=== PATIENT | male | born 1985 | race American Indian/Alaskan Native ===

== ENCOUNTER 2016-03-28 16:54 | Emergency (ER) | payer SELFPAY ==
[~2016-03-28] VITALS: Ht 182.9 cm; Wt 95.3 kg
[~2016-03-28 16:54] MED LIST: CLIN75SO6 PO; HYDR-2858 PO; HYDR-707 PO; HYDR118S PO; IBP600T1 PO; IBUP-2055 PO; LEVE500T99 PO; LORA1TAB PO; PHN100C PO; SERT50TA9 PO
[2016-03-28 17:21] VITALS: BP 117/75
== END 2016-03-28 19:00 | disposition left against medical advice (07) ==
LOC: EDUNIT# 16:54 → ER 16:55
DX: R20.2 Paresthesia of skin (principal); G40.909 Epilepsy, unspecified, not intractable, without status epilepticus; Z79.899 Other long term (current) drug therapy; Z53.21 Procedure and treatment not carried out due to patient leaving prior to being seen by health care provider
CPT/HCPCS: 99281

== ENCOUNTER 2016-08-16 17:31 | Emergency (ER) | payer SELFPAY ==
[~2016-08-16] VITALS: Ht 182.9 cm; Wt 95.3 kg
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
[2016-08-16] MEDS ORDERED: ONDANSETRON 4 MG (ZOFRAN) ORAL DISSOLVE TAB PO ONE (18:30)
[2016-08-16 18:37] LABS: BASOPHILS % (AUTO) 1 % (0-10); EOSINOPHILS # (AUTO) 0.1 10^3/uL (0.0-0.3); EOSINOPHILS % (AUTO) 1 % (0-10); LYMPHOCYTES # (AUTO) 1.9 X 10^3 (1.0-4.0); LYMPHOCYTES % (AUTO) 35 % (12-44); MEAN CORPUSCULAR HEMOGLOBIN 31 PG (25-34); MEAN CORPUSCULAR HGB CONC 36 G/DL (32-36); MEAN CORPUSCULAR VOLUME 88 FL (80-99); MEAN PLATELET VOLUME 9.8 FL (7.4-10.4); MONOCYTES # (AUTO) 0.5 X 10^3 (0.0-1.0); MONOCYTES % (AUTO) 10 % (0-12); NEUTROPHILS # (AUTO) 2.9 X 10^3 (1.8-7.8); NEUTROPHILS % (AUTO) 54 % (42-75); PLATELET COUNT 206 10^3/uL (130-400); RED BLOOD COUNT 5.21 10^6/uL (4.35-5.85); RED CELL DISTRIBUTION WIDTH 12.5 % (10.0-14.5); WHITE BLOOD COUNT 5.3 10^3/uL (4.3-11.0)
[2016-08-16 18:57] LABS: ALANINE AMINOTRANSFERASE 24 U/L (0-55); ALBUMIN 4.2 GM/DL (3.2-4.5); ALCOHOL 206 MG/DL (<10); ANION GAP 12 MMOL/L (5-14); ASPARTATE AMINO TRANSFERASE 29 U/L (5-34); BILIRUBIN,TOTAL 0.8 MG/DL (0.1-1.0); BLOOD UREA NITROGEN 6 MG/DL (7-18); BUN/CREATININE RATIO 7 (0-20); CALCIUM 8.9 MG/DL (8.5-10.1); CARBON DIOXIDE 21 MMOL/L (21-32); CHLORIDE 109 MMOL/L (98-107); CREATININE SERUM 0.84 MG/DL (0.60-1.30); GFR ESTIMATED > 60; GLUCOSE 116 MG/DL (70-105); HEMOLYSIS 14 (-100-29); ICTERUS 0.9 (-100-1.9); LIPASE 25 U/L (8-78); LIPEMIA 8 (-100-49); POTASSIUM 3.8 MMOL/L (3.6-5.0); SODIUM 142 MMOL/L (135-145)
--- NOTE | 2016-08-16 19:01 | Diagnostic Imaging Report ---
CHEST PA/LAT (2 VIEW) Indication: Cough and congestion. Comparison: 08/30/2015. Findings: No focal pneumonic consolidation, pleural effusion or pneumothorax. Normal heart size and pulmonary vasculature. Impression: No acute cardiopulmonary process. Dictated by: Dictated on workstation # [id number]
[2016-08-16] MEDS ORDERED: AMOX500C2 PO (19:16)
[2016-08-16 19:22] LABS: BILIRUBIN,URINE NEGATIVE (NEGATIVE); KETONES,URINE NEGATIVE (NEGATIVE); LEUKOCYTE ESTERASE ,URINE NEGATIVE (NEGATIVE); NITRITE,URINE NEGATIVE (NEGATIVE); PH,URINE 7 (5-9); PROTEIN,URINE NEGATIVE (NEGATIVE); UROBILINOGEN,URINE NORMAL (NORMAL)
[2016-08-16 19:31] LABS: SQUAMOUS EPITHELIAL CELL,UR RARE /HPF
[2016-08-16 19:45] VITALS: BP 114/84
--- OUTSIDE RECORDS SUMMARY | 2016-08-17 09:07 | XMS REPORT ---
Author Author DILAN DAVALOS [facility] [employer] Address Unknown Phone Unavailable Care Team Providers Care Optical Design Engineer Name Role Phone DILAN DAVALOS CP Unavailable Allergies No Known Allergies Problems Problem Type Condition Code Onset Dates Condition Status Problem Major depressive disorder, recurrent episode, unspecified severity F33.9 Active Problem Anxiety F41.9 Active Problem Alcohol dependence with withdrawal, unspecified F10.239 Active Problem Carpal tunnel syndrome, unspecified laterality G56.00 Active Problem Elevated blood pressure I10 Active Medications No Known Medications Results No Known Results Summary Purpose eClinicalWorks Submission
--- OUTSIDE RECORDS SUMMARY | 2016-08-17 09:07 | XMS REPORT ---
Author Author JERAD WEBSTER Organization [employer] Address Unknown Phone Unavailable Care Team Providers Care Wire Tinner Name Role Phone JERAD WEBSTER CP Unavailable Allergies No Known Allergies Problems [...]
--- OUTSIDE RECORDS SUMMARY | 2016-08-17 09:07 | XMS REPORT ---
Author Author STEVE OWENS Organization [employer] Address Unknown Phone Unavailable Care Team Providers Care Leveling Machine Operator Name Role Phone STEVE OWENS CP Unavailable Allergies, Adverse Reactions, Alerts Substance Reaction Event Type N.K.D.A. Info Not Available Non Drug Allergy Problems Problem Type Condition Code Onset Dates Condition Status Problem Major depressive disorder, recurrent episode, unspecified severity F33.9 Active Problem Anxiety F41.9 Active Problem Alcohol dependence with withdrawal, unspecified F10.239 Active Assessment Alcohol abuse F10.10 Active Assessment Alcohol abuse counseling and surveillance of alcoholic Z71.41 Active Problem Carpal tunnel syndrome, unspecified laterality G56.00 Active Problem Elevated blood pressure I10 Active Medications Medication Code System Code Instructions Start Date End Date Status Dosage Valium [facility] [address]-72 2 MG Orally ONCE TONIGHT, ONE TAB BID ON 07/07, 1 TAB ONCE ON 07/08 AND 07/09July 07, 2015 1 tablet Procedures Procedure Coding System Code Date Office Visit, Est Pt., Level 4 CPT-4 57102 July 07, 2015 Vital Signs Date/Time: July 07, 2015 Cardiac Monitoring Heart Rate 84 bpm Weight 182.2 lbs Height 70 in Blood Pressure Diastolic 86 mmHg Blood Pressure Systolic 118 mmHg Results No Known Results Summary Purpose eClinicalWorks Submission
--- OUTSIDE RECORDS SUMMARY | 2016-08-17 09:08 | XMS REPORT ---
Author Author AUDRA GONZALEZ Organization [employer] Address Unknown Phone Unavailable Care Team Providers Care Baggage Screener Name Role Phone AUDRA GONZALEZ Unavailable Allergies No Known Allergies Problems Problem [...]
--- OUTSIDE RECORDS SUMMARY | 2016-08-17 09:08 | XMS REPORT ---
Author Author SHIMON HUGHES Organization [employer] Address Unknown Phone Unavailable Care Team Providers Care Reamer Hand Name Role Phone SHIMON HUGHES CP Unavailable Allergies No Known Allergies Problems [...]
--- OUTSIDE RECORDS SUMMARY | 2016-08-17 09:08 | XMS REPORT ---
Author Author JACKIE DOVE [facility] [employer] Address Unknown Phone Unavailable Care Team Providers Care Visitor Service Assistant Name Role Phone JACKIE DOVE CP Unavailable Allergies No Known Allergies Problems [...]
--- OUTSIDE RECORDS SUMMARY | 2016-08-17 09:08 | XMS REPORT ---
Author Author JERAD WEBSTER [facility] e[employer] Address Unknown Phone Unavailable Care Team Providers Care Engraver Hand Soft Metals Name Role Phone JERAD WEBSTER CP Unavailable Allergies, Adverse Reactions, Alerts Substance Reaction Event Type N.K.D.A. Info Not Available Non Drug Allergy Problems Problem Type Condition Code Onset Dates Condition Status Problem Alcohol dependence with withdrawal, unspecified F10.239 Active Problem Anxiety F41.9 Active Problem Seizure disorder G40.909 Active Problem Carpal tunnel syndrome, unspecified laterality G56.00 Active Assessment Seizure disorder G40.909 Active Medications Medication Code System Code Instructions Start Date End Date Status Dosage Keppra [facility] [address]-61 500 MG Orally 2 times a day 2 tablets Procedures Procedure Coding System Code Date Office Visit, Est Pt., Level 3 CPT-4 22130 September 15, 2015 Vital Signs Date/Time: September 15, 2015 Cardiac Monitoring Heart Rate 76 bpm Weight 188.1 lbs Height 70 in BMI 26.99 Index Blood Pressure Diastolic 78 mmHg Blood Pressure Systolic 110 mmHg Results No Known Results Summary Purpose eClinicalWorks Submission
--- OUTSIDE RECORDS SUMMARY | 2016-08-17 09:08 | XMS REPORT ---
Author Author STEVE OWENS Organization [employer] Address Unknown Phone Unavailable Care Team Providers Care Tea Tree Farm Worker Name Role Phone STEVE OWENS CP Unavailable Allergies, Adverse Reactions, Alerts Substance Reaction Event Type N.K.D.A. Info Not Available Non Drug Allergy Problems Problem Type Condition Code Onset Dates Condition Status Problem Major depressive disorder, recurrent episode, unspecified severity F33.9 Active Problem Anxiety F41.9 Active Problem Alcohol dependence with withdrawal, unspecified F10.239 Active Assessment Counseling on substance use and abuse Z71.89 Active Assessment Anxiety F41.9 Active Problem Carpal tunnel syndrome, unspecified laterality G56.00 Active Problem Elevated blood pressure I10 Active Medications Medication Code System Code Instructions Start Date End Date Status Dosage Remeron [facility] [address]-54 15 MG Orally Once a day July 10, 2015 1 tablet before bedtime in the evening Valium [facility] [address]-05 2 MG Orally ONCE TONIGHT, ONE TAB BID ON 07/07, 1 TAB ONCE ON 07/08 AND 07/09July 07, 2015 1 tablet Procedures Procedure Coding System Code Date Office Visit, Est Pt., Level 3 CPT-4 03984 July 10, 2015 Vital Signs Date/Time: July 10, 2015 Cardiac Monitoring Heart Rate 76 bpm Weight 179.6 lbs Height 70 in Blood Pressure Diastolic 92 mmHg Blood Pressure Systolic 140 mmHg Results No Known Results Summary Purpose eClinicalWorks Submission
--- OUTSIDE RECORDS SUMMARY | 2016-08-17 09:08 | XMS REPORT | Referral Summary ---
Author Author [facility] Organization [facility] Address Unknown Phone Unavailable Care Team Providers Care Plate Grainer Apprentice Name Role Phone No PCP, Pt States PCP Encounter VC Date(s): 08/23/15 - 08/23/[address] [facility] [address] [place] [address] Discharge Diagnosis: Alcohol withdrawal seizure Discharge Disposition: 01-Home or Self Care Attending Physician: Yaya Alexandra MD Admitting Physician: Yaya Alexandra MD Vital Signs Most recent to 1 oldest [Reference Range]: Temperature Oral 37.1 degC [35.8-37.3 degC] (08/23/15 8:49 AM) Peripheral Pulse 111 bpm Rate [60-100 bpm] *HI* (08/23/15 8:49 AM) Heart Rate Monitored 98 bpm [60-100 bpm] (08/23/15 10:33 AM) Respiratory Rate 16 br/min [14-20 br/min] (08/23/15 8:49 AM) Systolic Blood 116 mmHg Pressure [90-140 (08/23/15 10:33 AM) mmHg] Diastolic Blood 78 mmHg Pressure [60-90 (08/23/15 10:33 AM) mmHg] Mean Arterial 96 mmHg Pressure, Cuff (08/23/15 9:25 AM) SpO2 98 % (08/23/15 10:33 AM) Problem List No Known Problems Allergies, Adverse Reactions, Alerts No Known Medication Allergies Medications No Known Medications Results Hematology Most recent to 1 oldest [Reference Range]: WBC [4.8-10.8 7.8 10*3/uL 10*3/uL] (08/23/15 9:13 AM) RBC [4.60-6.20] 5.11 (08/23/15 9:13 AM) Hgb [14.0-18.0 16.3 gm/dL gm/dL] (08/23/15 9:13 AM) Hct [42.0-52.0 %] 48.0 % (08/23/15:13 AM) MCV [82.0-99.0 fL] 93.9 fL (08/23/15 9:13 AM) MCH [27.0-32.0 pg] 31.9 pg (08/23/15:13 AM) MCHC [32.0-36.0 34.0 gm/dL gm/dL] (08/23/15 9:13 AM) RDW [11.5-14.5 %] 12.7 % (08/23/15 9:13 AM) Platelet [150-400 276 10*3/uL 10*3/uL] (08/23/15 9:13 AM) MPV [9.4-12.3 fL] 10.5 fL (08/23/15 9:13 AM) Immature 1.0 % Granulocytes (08/23/15:13 AM) [0.0-1.0 %] Neutrophils [51-75 64 % %] (08/23/15 9:13 AM) Lymphocytes [20-46 21 % %] (08/23/15 9:13 AM) Monocytes [4-11 %] 9 % (08/23/15 9:13 AM) Eosinophils [0-4 %] 3 % (08/23/15 9:13 AM) Basophils [0-2 %] 1 % (08/23/15 9:13 AM) Neutro Absolute 5.05 10*3 [1.90-7.00 10*3] (08/23/15 9:13 AM) Lymph Absolute 1.68 10*3 [0.80-3.30 10*3] (08/23/15 9:13 AM) Armstrong Absolute 0.69 10*3 [0.30-1.00 10*3] (08/23/15 9:13 AM) Eos Absolute 0.25 10*3 [0.00-0.50 10*3] (08/23/15 9:13 AM) Baso Absolute 0.10 10*3 [0.00-0.20 10*3] (08/23/15 9:13 AM) Nucleated RBC 0.0 /100 WBC Automated [0 /100 (08/23/15 9:13 AM) WBC] Chemistry Most recent to 1 oldest [Reference Range]: Sodium Lvl [136-144 137 mEq/L mEq/L] (08/23/15 9:13 AM) Potassium Lvl 4.6 mEq/L [3.6-5.1 mEq/L] (08/23/15 9:13 AM) Chloride [99-109 107 mEq/L mEq/L] (08/23/15 9:13 AM) CO2 [22-32 mEq/L] 20 mEq/L *LOW* (08/23/15 9:13 AM) AGAP [3-20] 10 (08/23/15 9:13 AM) BUN [4-20 mg/dL] 10 mg/dL (08/23/15 9:13 AM) Glucose Lvl [70-100 91 mg/dL mg/dL] (08/23/15 9:13 AM) Creatinine Lvl 0.96 mg/dL [0.64-1.27 mg/dL] (08/23/15 9:13 AM) eGFR [>60] >60 1 (08/23/15 9:13 AM) Calcium Lvl 9.2 mg/dL [8.6-10.0 mg/dL] (08/23/15 9:13 AM) 1Result Comment: Multiply eGFR results by 1.21 for race. Immunizations No data available for this section Procedures Procedure Date Related Diagnosis Body Site Facial bone operation Social History Social History Type Response Smoking Status Current every day smoker; Type: Cigarettes; Tobacco use per day: 1 Pack Assessment and Plan No data available for this section
--- OUTSIDE RECORDS SUMMARY | 2016-08-17 09:09 | XMS REPORT ---
Author Author JERAD WEBSTER [facility] eClinical[employer] Address Unknown Phone Unavailable Care Team Providers Care Pool Nurse Name Role Phone JERAD WEBSTER CP Unavailable Allergies, Adverse Reactions, Alerts Substance Reaction Event Type N.K.D.A. Info Not Available Non Drug Allergy Problems Problem Type Condition Code Onset Dates Condition Status Problem Major depressive disorder, recurrent episode, unspecified severity F33.9 Active Problem Anxiety F41.9 Active Problem Alcohol dependence with withdrawal, unspecified F10.239 Active Assessment Alcohol dependence with withdrawal, unspecified F10.239 Active Problem Carpal tunnel syndrome, unspecified laterality G56.00 Active Problem Elevated blood pressure I10 Active Medications Medication Code System Code Instructions Start Date End Date Status Dosage Ativan [facility] [address]-21 0.5 MG Orally 2 times a day Jan 31, 2015 1 tablet as needed Procedures Procedure Coding System Code Date Office Visit, Est Pt., Level 2 CPT-4 93083 Feb 17, 2015 Vital Signs Date/Time: Feb 17, 2015 Temperature 97.7 F Weight 187.5 lbs Height 70 in BMI 26.90 Index Blood Pressure Diastolic 84 mmHg Blood Pressure Systolic 124 mmHg Cardiac Monitoring Heart Rate 84 bpm Results No Known Results Summary Purpose eClinicalWorks Submission
--- OUTSIDE RECORDS SUMMARY | 2016-08-17 09:09 | XMS REPORT ---
Author Author CANDIS HARRINGTON [facility] Address [address] Care Team Providers Care Tariff Compiling Clerk Name Role Phone CANDIS HARRINGTON Unavailable PROBLEMS Type Condition ICD9-CM Code [id number] Code Onset Dates Condition Status SNOMED Code Problem Alcohol dependence with withdrawal, unspecified F10.239 Active 24577117 Problem Anxiety F41.9 Active 61026755 Problem Carpal tunnel syndrome, unspecified laterality G56.00 Active 73333473 Assessment Counseling on substance use and abuse Z71.89 June, Active [id number] ALLERGIES No Known Allergies SOCIAL HISTORY No smoking Hx information available PLAN OF CARE VITAL SIGNS MEDICATIONS No Known Medications RESULTS No Results PROCEDURES Procedure Date Ordered Related Diagnosis Body Site AUDIT/DAST, 15-30 MIN July 07, 2015 IMMUNIZATIONS No Known Immunizations
--- OUTSIDE RECORDS SUMMARY | 2016-08-17 09:09 | XMS REPORT ---
Author Author CANDIS HARRINGTON [facility] Address [address] Care Team Providers Care Glazier Supervisor Name Role Phone CANDIS HARRINGTON Unavailable PROBLEMS Type Condition ICD9-CM Code [id number] Code Onset Dates Condition Status SNOMED Code Problem Alcohol dependence with withdrawal, unspecified F10.239 Active 89327981 Problem Anxiety F41.9 Active 69617840 Problem Carpal tunnel syndrome, unspecified laterality G56.00 Active 76089895 Assessment Counseling on substance use and abuse Z71.89 June, Active 280546240 ALLERGIES No Known Allergies SOCIAL HISTORY No smoking Hx information available PLAN OF CARE VITAL SIGNS MEDICATIONS No Known Medications RESULTS No Results PROCEDURES Procedure Date Ordered Related Diagnosis Body Site AUDIT/DAST, 15-30 MIN July 10, 2015 IMMUNIZATIONS No Known Immunizations
--- OUTSIDE RECORDS SUMMARY | 2016-08-17 09:09 | XMS REPORT ---
Author Author AUDRA GONZALEZ Organization [employer] Address Unknown Phone Unavailable Care Team Providers Care Loader Machine Name Role Phone AUDRA GONZALEZ Unavailable Allergies [...]
--- OUTSIDE RECORDS SUMMARY | 2016-08-17 09:09 | XMS REPORT ---
Author Author CANDIS HARRINGTON [facility] Address [address] Care Team Providers Care Tongue Carrier Name Role Phone CANDIS HARRINGTON Unavailable PROBLEMS Type Condition ICD9-CM Code [id number] Code Onset Dates Condition Status SNOMED Code Problem Alcohol dependence with withdrawal, unspecified F10.239 Active 37905680 Problem Anxiety F41.9 Active 92220417 Problem Carpal tunnel syndrome, unspecified laterality G56.00 Active 43812728 Assessment Counseling on substance use and abuse Z71.89 June, Active 902317737 ALLERGIES No Known Allergies SOCIAL HISTORY No smoking Hx information available PLAN OF CARE VITAL SIGNS MEDICATIONS No Known Medications RESULTS No Results PROCEDURES Procedure Date Ordered Related Diagnosis Body Site AUDIT/DAST, 15-30 MIN July 08, 2015 IMMUNIZATIONS No Known Immunizations
--- OUTSIDE RECORDS SUMMARY | 2016-08-17 09:09 | XMS REPORT | Continuity of Care Document ---
Author Author Formerly [facility] Address Unknown Phone Unavailable Allergies Active Description Code Type Severity Reaction Onset Reported/Identified Relationship to Patient Clinical Status Yes shellfish derived [id number] Drug Allergy Mild RASH 07/25/2012 Medications Problems Date Dx Coded Attending Type Code Diagnosis Diagnosed By 06/11/2008 372.00 ACUTE CONJUNCTIVITIS UNSPECIFIED 06/11/2008 372.00 ACUTE CONJUNCTIVITIS UNSPECIFIED 06/11/2008 372.00 ACUTE CONJUNCTIVITIS UNSPECIFIED 06/11/2008 JERAD WEBSTER MD 372.00 ACUTE CONJUNCTIVITIS UNSPECIFIED 06/11/2008 JACKIE DOVE DO 372.00 ACUTE CONJUNCTIVITIS UNSPECIFIED 06/11/2008 GENA OSULLIVAN APRN 372.00 ACUTE CONJUNCTIVITIS UNSPECIFIED 09/17/2008 079.99 VIRAL SYNDROME 09/17/2008 079.99 VIRAL SYNDROME 09/17/2008 079.99 VIRAL SYNDROME 09/17/2008 JERAD WEBSTER MD 079.99 VIRAL SYNDROME 09/17/2008 JACKIE DOVE DO 079.99 VIRAL SYNDROME 09/17/2008 GENA OSULLIVAN APRN 079.99 VIRAL SYNDROME 08/28/2010 780.39 OTHER CONVULSIONS 08/28/2010 780.39 OTHER CONVULSIONS 08/28/2010 780.39 OTHER CONVULSIONS 08/28/2010 JERAD WEBSTER MD 780.39 OTHER CONVULSIONS 08/28/2010 JACKIE DOVE DO 780.39 OTHER CONVULSIONS 08/28/2010 GENA OSULLIVAN APRN 780.39 OTHER CONVULSIONS 03/17/2011 922.1 CONTUSION OF CHEST WALL 03/17/2011 922.1 CONTUSION OF CHEST WALL 03/17/2011 922.1 CONTUSION OF CHEST WALL 03/17/2011 JERAD WEBSTER MD 922.1 CONTUSION OF CHEST WALL 03/17/2011 JACKIE DOVE DO 922.1 CONTUSION OF CHEST WALL 03/17/2011 OSULLIVAN EVENT SET UP SPECIALIST, GENA R 922.1 CONTUSION OF CHEST WALL 07/12/2011 Ot 780.39 OTHER CONVULSIONS 07/12/2011 Ot 802.25 FX ANGLE OF JAW-CLOSED 07/12/2011 Ot 802.26 FX SYMPHY MANDIB BODY-CL 07/12/2011 Ot 850.0 CONCUSSION W/O COMA 07/12/2011 Ot E000.8 OTHER EXTERNAL CAUSE STATUS 07/12/2011 Ot E928.9 ACCIDENT NOS 07/12/2011 Ot V06.1 [id number], COMBINED [ 09/06/2011 Ot 920 CONTUSION FACE/SCALP/NCK 09/06/2011 Ot E000.8 OTHER EXTERNAL CAUSE STATUS 09/06/2011 Ot [address] NEC 09/06/2011 Ot E888.9 FALL NOS 11/10/2011 486 PNEUMONIA UNSPECIFIED 11/10/2011 486 PNEUMONIA UNSPECIFIED 11/10/2011 486 PNEUMONIA UNSPECIFIED 11/10/2011 JERAD WEBSTER MD 486 PNEUMONIA UNSPECIFIED 11/10/2011 JACKIE DOVE DO 486 PNEUMONIA UNSPECIFIED 11/10/2011 GENA OSULLIVAN APRN R 486 PNEUMONIA UNSPECIFIED 06/01/2012 465.9 UPPER RESPIRATORY INFECTION 06/01/2012 465.9 UPPER RESPIRATORY INFECTION 06/01/2012 465.9 UPPER RESPIRATORY INFECTION 06/01/2012 JERAD WEBSTER MD 465.9 UPPER RESPIRATORY INFECTION 06/01/2012 JACKIE DOVE DO 465.9 UPPER RESPIRATORY INFECTION 06/01/2012 GENA OSULLIVAN APRN R 465.9 UPPER RESPIRATORY INFECTION 07/28/2012 JERAD WEBSTER MD Ot 291.81 ALCOHOL WITHDRAWAL 07/28/2012 JERAD WEBSTER MD Ot 300.00 ANXIETY STATE NOS 07/28/2012 JERAD WEBSTER MD Ot 303.90 ALCOH DEP NEC/NOS-UNSPEC 07/28/2012 JERAD WEBSTER MD Ot 345.90 EPILEPSY UNSPEC W/O MENTION INTRACTABLE 07/28/2012 JERAD WEBSTER MD Ot 571.1 AC ALCOHOLIC HEPATITIS 03/04/2014 MARCOS ALEXANDER DO Ot 300.00 ANXIETY STATE NOS 03/04/2014 MARCOS ALEXANDER DO Ot 305.00 ALCOHOL ABUSE-UNSPEC 03/04/2014 MARCOS ALEXANDER DO Ot 305.20 CANNABIS ABUSE-UNSPEC 03/04/2014 MARCOS ALEXANDER DO Ot 305.90 DRUG ABUSE NEC-UNSPEC 03/04/2014 MARCOS ALEXANDER DO Ot 786.50 CHEST PAIN NOS 03/10/2014 GUILLERMINA ELIZONDO EVENT SET UP SPECIALIST Ot 303.90 ALCOH DEP NEC/NOS-UNSPEC 03/10/2014 GUILLERMINA ELIZONDO EVENT SET UP SPECIALIST Ot 782.0 SKIN SENSATION DISTURB 03/13/2014 JACKIE DOVE DO 291.81 ALCOHOL WITHDRAWAL 03/13/2014 GENA OSULLIVAN APRN R 291.81 ALCOHOL WITHDRAWAL 04/12/2014 GENA OSULLIVAN APRN R 296.20 MAJOR DEPRESSIVE AFFECTIVE DISORDER SINGLE EPISODE UNSPECIFIED DEGREE 04/12/2014 GENA OSULLIVAN APRN R 300.00 ANXIETY STATE UNSPECIFIED 04/12/2014 GENA OSULLIVAN APRN R 354.0 CARPAL TUNNEL SYNDROME 04/12/2014 GENA OSULLIVAN APRN R 796.2 ELEVATED BLOOD PRESSURE READING WITHOUT DIAGNOSIS OF HYPERTENSION 04/17/2014 GENA OSULLIVAN APRN R NODX NO DIAGNOSIS 04/18/2014 Ot 303.90 04/18/2014 Ot 535.30 04/18/2014 Ot 303.90 04/18/2014 Ot 535.30 04/19/2014 Ot 303.90 04/19/2014 Ot 535.30 04/21/2014 Ot 303.90 ALCOH DEP NEC/NOS-UNSPEC 04/21/2014 Ot 305.20 CANNABIS ABUSE-UNSPEC 04/21/2014 Ot 578.0 HEMATEMESIS 05/24/2014 GENA OSULLIVAN APRN R 719.47 PAIN IN JOINT INVOLVING ANKLE AND FOOT 03/14/2015 Ot F10.120 ALCOHOL ABUSE WITH INTOXICATION, UNCOMPL 03/14/2015 Ot F12.10 CANNABIS ABUSE, UNCOMPLICATED 03/14/2015 Ot F17.210 NICOTINE DEPENDENCE, CIGARETTES, UNCOMPL 03/14/2015 Ot G40.909 EPILEPSY, UNSP, NOT INTRACTABLE, WITHOUT 03/14/2015 Ot Y90.8 BLOOD ALCOHOL LEVEL OF 240 MG/100 ML OR 03/14/2015 Ot Z91.14 PATIENT'S OTHER NONCOMPLIANCE WITH MEDIC 03/27/2015 EMPERATRIZ MARTE MD Ot F10.230 ALCOHOL DEPENDENCE WITH WITHDRAWAL, UNCO 03/27/2015 EMPERATRIZ MARTE MD Ot F12.10 CANNABIS ABUSE, UNCOMPLICATED 03/27/2015 ESTUARDO MD, EMPERATRIZ S Ot F17.210 NICOTINE DEPENDENCE, CIGARETTES, UNCOMPL 03/27/2015 ESTUARDO GRADY, EMPERATRIZ Hunter Ot G40.909 EPILEPSY, UNSP, NOT INTRACTABLE, WITHOUT 03/27/2015 ESTUARDO GRADY, EMPERATRIZ Hunter Ot Y90.7 BLOOD ALCOHOL LEVEL OF 200-239 MG/100 ML 07/04/2015 PAMELLA GRADY, LUNA N Ot F17.210 NICOTINE DEPENDENCE, CIGARETTES, UNCOMPL 07/04/2015 PAMELLA GRADY, LUNA N Ot F32.9 MAJOR DEPRESSIVE DISORDER, SINGLE EPISOD 07/04/2015 PAMELLA GRADY, LUNA N Ot F41.9 ANXIETY DISORDER, UNSPECIFIED 07/04/2015 PAMELLA GRADY, LUNA N Ot T14.91 SUICIDE ATTEMPT 07/04/2015 PAMELLA GRADY, LUNA N Ot F17.210 NICOTINE DEPENDENCE, CIGARETTES, UNCOMPL 07/04/2015 PAMELLA GRADY, LUNA N Ot F32.9 MAJOR DEPRESSIVE DISORDER, SINGLE EPISOD 07/04/2015 PAMELLA GRADY, LUNA N Ot F41.9 ANXIETY DISORDER, UNSPECIFIED 07/04/2015 PAMELLA GRADY, LUNA N Ot T14.91 SUICIDE ATTEMPT 07/18/2015 GUILLERMINA ELIZONDO APRN Ot F10.229 ALCOHOL DEPENDENCE WITH INTOXICATION, UN 07/18/2015 GUILLERMINA ELIZONDO APRN Ot G40.909 EPILEPSY, UNSP, NOT INTRACTABLE, WITHOUT 07/18/2015 GUILLERMINA ELIZONDO APRN Ot Y90.6 BLOOD ALCOHOL LEVEL OF 120-199 MG/100 ML 07/18/2015 GUILLERMINA ELIZONDO APRN Ot Z91.14 PATIENT'S OTHER NONCOMPLIANCE WITH MEDIC 07/20/2015 GUILLERMNIA ELIZONDO APRN Ot F10.229 ALCOHOL DEPENDENCE WITH INTOXICATION, UN 07/20/2015 GUILLERMINA ELIZONDO APRN Ot G40.909 EPILEPSY, UNSP, NOT INTRACTABLE, WITHOUT 07/20/2015 GUILLERMINA ELIZONDO APRN Ot Z91.14 PATIENT'S OTHER NONCOMPLIANCE WITH MEDIC 07/20/2015 GUILLERMINA ELIZONDO APRN Ot F10.229 ALCOHOL DEPENDENCE WITH INTOXICATION, UN 07/20/2015 GUILLERMINA ELIZONDO APRN Ot G40.909 EPILEPSY, UNSP, NOT INTRACTABLE, WITHOUT 07/20/2015 GUILLERMINA ELIZONDO APRN Ot Y90.6 BLOOD ALCOHOL LEVEL OF 120-199 MG/100 ML 07/20/2015 GUILLERMINA ELIZONDO APRN Ot Z91.14 PATIENT'S OTHER NONCOMPLIANCE WITH MEDIC 09/02/2015 VERA COHN MD Ot G44.209 TENSION-TYPE HEADACHE, UNSPECIFIED, NOT 09/03/2015 VERA COHN MD Ot G44.209 TENSION-TYPE HEADACHE, UNSPECIFIED, NOT 03/28/2016 SHANICE ROMERO Ot G40.909 EPILEPSY, UNSP, NOT INTRACTABLE, WITHOUT 03/28/2016 SHANICE ROMERO Ot R20.2 PARESTHESIA OF SKIN 03/28/2016 SHANICE ROMERO Ot Z53.21 PROC/TRTMT NOT CRD OUT D/T PT LV BEF SEE 03/28/2016 SHANICE ROMERO Ot Z79.899 OTHER LATHE OPERATOR (CURRENT) DRUG THERAPY 03/30/2016 SHANICE ROMERO Ot G40.909 EPILEPSY, UNSP, NOT INTRACTABLE, WITHOUT 03/30/2016 SHANICE ROMERO Ot R20.2 PARESTHESIA OF SKIN 03/30/2016 SHANICE ROMERO Ot Z53.21 PROC/TRTMT NOT CRD OUT D/T PT LV BEF SEE 03/30/2016 SHANICE ROMERO Ot Z79.899 OTHER LATHE OPERATOR (CURRENT) DRUG THERAPY Procedures Code Description Performed By Performed On 76.76 07/11/2011 35788 OXIMETRY 2012 81543 ROUTINE VENIPUNCTURE 07/11/2012 06804 DILANTIN 2012 94.62 07/24/2012 94.62 04/17/2014 69446 XRAY ANKLE L COMP MIN, 3 VIEWS 05/24/2014 Results Encounters ACCT No. Visit Date/Time Discharge Status Pt. Type Provider Facility Loc./Unit Complaint [id number] 05/24/2014 12:27:00 05/24/2014 23: 59:59 CLS Outpatient GENA OSULLIVAN APRN [id number] 03/18/2014 13:47:00 03/18/2014 23: 59:59 CLS Outpatient JACKIE DOVE DO [id number] 08/22/2012 07:39:00 08/22/2012 23: 59:59 CLS Outpatient JERAD WEBSTER MD [id number] 07/20/2012 11:11:00 Document Registration [id number] 07/11/2012 11:55:00 Document Registration [id number] 06/01/2012 18:21:00 Document Registration
--- OUTSIDE RECORDS SUMMARY | 2016-08-17 09:09 | XMS REPORT ---
Author Author DILAN DAVALOS [facility] eClinicalWorks Address Unknown Phone Unavailable Care Team Providers Care Rotary Rig Engine Operator Name Role Phone DILAN DAVALOS CP Unavailable Allergies, Adverse Reactions, Alerts Substance [...] Start Date End Date Status Dosage Ativan [facility] [id number] 0.5 MG Orally 2 times a day Jan 31, 2015 1 tablet as needed Procedures Procedure Coding System Code Date No Charge CPT-4 20851 Jan 31, 2015 Office Visit, Est Pt., Level 3 CPT-4 75599 Jan 31, 2015 DRUG SCREEN NON TLC DEVICES CPT-4 11158 Jan 31, 2015 Vital Signs Date/Time: Jan 31, 2015 Temperature 98.4 F Weight 177.1 lbs Height 70 in BMI 25.41 Index Blood Pressure Diastolic 84 mmHg Blood Pressure Systolic 146 mmHg Cardiac Monitoring Heart Rate 100 bpm Results Name Result Date Reference Range Unit Abnormality Flag URINE DRUG SCREEN (IN HOUSE) ----MDMA Negative 20150131 ----TCA Negative 20150131 ----BENZO Positive 20150131 ----OPIATE Negative 20150131 ----THC Positive 20150131 ----MTD Negative 20150131 ----AMPH Negative 20150131 ----BAR Negative 20150131 ----PCP Negative 20150131 ----MAMP Negative 20150131 ----OXY Negative 20150131 ----Lot # [id number] ----Exp date 20150131 ----Control + 20150131 ----COCAINE Negative 20150131 Summary Purpose eClinicalWorks Submission
--- OUTSIDE RECORDS SUMMARY | 2016-08-17 09:09 | XMS REPORT ---
Author Author LUNA CAN [facility] eClinicalWorks Address Unknown Phone Unavailable Care Team Providers Care Property Controller Name Role Phone LUNA CAN Unavailable Allergies No Known Allergies Problems Problem [...]
--- OUTSIDE RECORDS SUMMARY | 2016-08-17 09:09 | XMS REPORT | Referral Summary ---
Author Author [facility] Organization [facility] Address Unknown Phone Unavailable Care Team Providers Care Marine Structural Welder Name Role Phone No PCP, Pt States PCP Encounter VC Date(s): 08/30/15 - 08/31/15 [facility] [address] [place] [address] [phone] Discharge Diagnosis: Sepsis Discharge Diagnosis: Seizure Discharge Diagnosis: Metabolic acidosis Discharge Diagnosis: Leukocytosis Discharge Disposition: 70-Other Healthcare Facility Attending Physician: Michael Clancy DO Admitting Physician: Edward Richey MD Vital Signs Most recent to 1 oldest [Reference Range]: Temperature Oral 36.5 degC [35.8-37.3 degC] (08/30/15 8:22 AM) Temperature Temporal 36.6 degC Artery [36.3-37.8 (08/31/15 8:00 AM) degC] Peripheral Pulse 90 bpm Rate [60-100 bpm] (08/30/15 8:22 AM) Heart Rate Monitored 80 bpm [60-100 bpm] (08/31/15 8:00 AM) Respiratory Rate 18 br/min [14-20 br/min] (08/31/15 5:00 AM) Blood Pressure 116/78 mmHg [90-140/60-90 mmHg] (08/31/15 8:00 AM) Mean Arterial 91 mmHg Pressure, Cuff (08/31/15 5:00 AM) SpO2 96 % (08/31/15 8:00 AM) Problem List Condition Effective Dates Status Health Status Informant Acute Active pain(Confirmed) At risk of pressure Active sore(Confirmed) Seizures(Confirmed) Active patient Tissue perfusion Active alteration(Confirmed )1 1Problem added automatically by system based on initiation of Tissue Perfusion Cerebral Plan of Care Allergies, Adverse Reactions, Alerts No Known Medication Allergies Medications Keppra 500 mg oral tablet 1,000 mg 2 tabs, Oral, BID, 0 Refill(s) Start Date: 08/31/15 Status: Ordered Results Hematology Most recent to 1 oldest [Reference Range]: WBC [4.8-10.8 6.2 10*3/uL 10*3/uL] (08/31/15 5:07 AM) RBC [4.60-6.20] 4.73 (08/31/15 5:07 AM) Hgb [14.0-18.0 15.2 gm/dL gm/dL] (08/31/15 5:07 AM) Hct [42.0-52.0 %] 45.8 % (08/31/15 5:07 AM) MCV [82.0-99.0 fL] 96.8 fL (08/31/15 5:07 AM) MCH [27.0-32.0 pg] 32.1 pg *HI* (08/31/15 5:07 AM) MCHC [32.0-36.0 33.2 gm/dL gm/dL] (08/31/15 5:07 AM) RDW [11.5-14.5 %] 12.8 % (08/31/15 5:07 AM) Platelet [150-400 221 10*3/uL 10*3/uL] (08/31/15 5:07 AM) MPV [9.4-12.3 fL] 11.1 fL (08/31/15 5:07 AM) Immature 0.4 % Granulocytes (08/30/15 8:45 AM) [0.0-1.0 %] Neutrophils [51-75 71 % %] (08/30/15 8:45 AM) Lymphocytes [20-46 18 % %] *LOW* (08/30/15 8:45 AM) Monocytes [4-11 %] 9 % (08/30/15 8:45 AM) Eosinophils [0-4 %] 2 % (08/30/15 8:45 AM) Basophils [0-2 %] 0 % (08/30/15 8:45 AM) Neutro Absolute 17.43 10*3 [1.90-7.00 10*3] *HI* (08/30/15 8:45 AM) Lymph Absolute 4.43 10*3 [0.80-3.30 10*3] *HI* (08/30/15 8:45 AM) [place] Absolute 2.15 10*3 [0.30-1.00 10*3] *HI* (08/30/15 8:45 AM) Eos Absolute 0.46 10*3 [0.00-0.50 10*3] (08/30/15 8:45 AM) Baso Absolute 0.05 10*3 [0.00-0.20 10*3] (08/30/15 8:45 AM) Nucleated RBC 0.0 /100 WBC Automated [0 /100 (08/30/15 8:45 AM) WBC] Differential Scanned Slide (08/30/15 8:45 AM) Chemistry Most recent to 1 oldest [Reference Range]: Sodium Lvl [136-144 141 mEq/L mEq/L] (08/31/15 5:07 AM) Potassium Lvl 4.0 mEq/L [3.6-5.1 mEq/L] (08/31/15 5:07 AM) Chloride [99-109 110 mEq/L mEq/L] *HI* (08/31/15 5:07 AM) CO2 [22-32 mEq/L] 24 mEq/L (08/31/15 5:07 AM) AGAP [3-20] 7 (08/31/15 5:07 AM) BUN [4-20 mg/dL] 8 mg/dL (08/31/15 5:07 AM) Glucose Lvl [70-100 97 mg/dL mg/dL] (08/31/15 5:07 AM) Creatinine Lvl 0.83 mg/dL [0.64-1.27 mg/dL] (08/31/15 5:07 AM) eGFR [>60] >60 1 (08/31/15 5:07 AM) Calcium Lvl 8.7 mg/dL [8.6-10.0 mg/dL] (08/31/15 5:07 AM) Albumin Lvl [3.5-4.8 3.3 gm/dL gm/dL] *LOW* (08/31/15 5:07 AM) Total Protein 7.8 gm/dL [6.1-7.9 gm/dL] (08/30/15 8:45 AM) Globulin [1.9-4.3 3.1 gm/dL gm/dL] (08/30/15 8:45 AM) ALT [17-63 U/L] 31 U/L (08/30/15 8:45 AM) AST [15-41 U/L] 37 U/L (08/30/15 8:45 AM) Alk Phos [26-104 80 U/L U/L] (08/30/15 8:45 AM) Bili Total [0.2-1.2 1.0 mg/dL 2 mg/dL] (08/30/15 8:45 AM) Magnesium Lvl 2.0 mg/dL [1.8-2.5 mg/dL] (08/31/15 5:07 AM) Phosphorus [2.4-4.7 3.4 mg/dL 3 mg/dL] (08/31/15 5:07 AM) Lactic Acid Lvl 5.6 mEq/L 4 [0.5-2.2 mEq/L] *HHI* (08/30/15 9:34 AM) Sodium Venous 148 mEq/L [136-144 mEq/L] *HI* (08/30/15 8:34 AM) Potassium Venous 6.9 mEq/L 5 [3.6-5.1 mEq/L] *HHI* (08/30/15 8:34 AM) Calcium Ionized 1.48 mmol/L Venous [1.19-1.41 *HI* mmol/L] (08/30/15 8:34 AM) Total CO2 Venous 27 mEq/L [25-29 mEq/L] (08/30/15 8:34 AM) HGB Venous NPT 19.4 gm/dL [14.0-16.0 gm/dL] *HI* (08/30/15 8:34 AM) HCT Venous 57.0 % [42.0-52.0 %] *HI* (08/30/15 8:34 AM) Glucose Venous 109 mg/dL [70-100 mg/dL] *HI* (08/30/15 8:34 AM) BUN Venous [4-20] 17 (08/30/15 8:34 AM) Creatinine Venous 1.0 mg/dL [0.7-1.2 mg/dL] (08/30/15 8:34 AM) Venous CL [99-109 110 mEq/L mEq/L] *HI* (08/30/15 8:34 AM) Anion Gap, Evelio 11 [3-20] (08/30/15 8:34 AM) 1Result Comment: Multiply eGFR results by 1.21 for race. 2Result Comment: Naproxen, specifically the metabolite O-desmethylnaproxen, may cause spurious elevation in Total Bilirubin levels. 3Result Comment: High dosages of liposomal Amphotericin B (AmBisome) therapy or other drug preparations that use a liposomal envelope to facilitate drug delivery may cause falsely elevated results for phosphorus. 4Result Comment: Critical value called, and read-back verified. Called to Taras Cortez RN FERM 08/30/2015 10:33 5Result Comment: This test was performed on a whole blood specimen. The presence or absence of hemolysis cannot be assessed. Hemolysis can falsely elevate potassium levels. Normals are for venous specimens only. Toxicology Most recent to 1 oldest [Reference Range]: Ethanol Lvl Not Detected (08/30/15 8:45 AM) U Amphetamine Scrn Negative (08/30/15 9:56 AM) U Cocaine Scrn Negative (08/30/15 9:56 AM) U Cannab Scrn Negative (08/30/15 9:56 AM) U Opiate Scrn Negative (08/30/15 9:56 AM) U PCP Scrn Negative (08/30/15 9:56 AM) U Benzodiazepine Negative Scrn (08/30/15 9:56 AM) U Barbiturate Scrn Negative (08/30/15 9:56 AM) Methadone Lvl Negative (08/30/15 9:56 AM) Tricyclics Not Detected 1 (08/30/15 9:56 AM) 1Result Comment: Cut-off concentrations: Amphetamines: 1000 ng/mL Cocaine: 300 ng/mL Cannabinoid: 50 ng/mL Opiate: 300 ng/mL Phencyclidine (PCP): 25 ng/mL Benzodiazepine: 200 ng/mL Barbiturate: 200 ng/mL Methadone: 300 ng/mL Tricyclic: 300 ng/mL The urine drug screen assays are qualitative screens. A more specific GC/MS method must be performed to obtain a confirmed analytical result. Unconfirmed screening results must not be used for non-medical purposes(e.g. employment or legal testing) Urinalysis Most recent to 1 oldest [Reference Range]: UA Color Yellow (08/30/15 9:56 AM) UA Appear Clear (08/30/15 9:56 AM) UA pH [5.0-8.0] 6.0 (08/30/15 9:56 AM) UA Leuk Est Negative [Negative] (08/30/15 9:56 AM) UA Nitrite Negative [Negative] (08/30/15 9:56 AM) UA Protein Pos 1+ [Negative] *ABN* (08/30/15 9:56 AM) UA Glucose Negative [Negative] (08/30/15 9:56 AM) UA Ketones Negative [Negative] (08/30/15 9:56 AM) UA Urobilinogen Negative [<1.0] (08/30/15 9:56 AM) UA Bili [Negative] Negative (08/30/15 9:56 AM) UA Blood [Negative] Negative (08/30/15 9:56 AM) UA Spec Grav 1.015 [1.003-1.030] (08/30/15 9:56 AM) Type Clean Catch (08/30/15 9:56 AM) UA WBC [0-4] 0-2 (08/30/15 9:56 AM) UA Bacteria Rare (08/30/15 9:56 AM) UA Hyal Cast [0-3] 1-3 (08/30/15 9:56 AM) UA Mucous Present (08/30/15 9:56 AM) Microbiology Reports TEST: Blood Culture STATUS: Order in Progress BODY SITE: SOURCE: Blood COLLECTED DATE/TIME: 08/30/15 9:56 AM Blood Culture No growth after 12 hours incubation. Nursing unit will be called if growth is detected. - A blood culture drawn through a catheter with a differential time to positivity at least 2 hours sooner than one drawn from a peripheral vein at the same time suggests a catheter-related bloodstream infection. TEST: Blood Culture STATUS: Order in Progress BODY SITE: SOURCE: Blood COLLECTED DATE/TIME: 08/30/15 9:34 AM Blood Culture No growth after 12 hours incubation. Nursing unit will be called if growth is detected. - A blood culture drawn through a catheter with a differential time to positivity at least 2 hours sooner than one drawn from a peripheral vein at the same time suggests a catheter-related bloodstream infection. TEST: Cerebrospinal Fluid Culture and Smear STATUS: Order in Progress BODY SITE: SOURCE: Cerebrospinal Fluid COLLECTED DATE/TIME: 08/30/15 9:33 AM Gram Smear No white blood cells No microorganisms observed OIF=Oil Immersion Field LPF=Low Power Field Immunizations No data available for this section Procedures Procedure Date Related Diagnosis Body Site Facial bone operation Social History Social History Type Response Smoking Status Current every day smoker; Type: Cigarettes; Tobacco use per day: 1 Pack Assessment and Plan No data available for this section
== END 2016-08-16 19:45 | disposition home or self-care (01) ==
LOC: EDUNIT# 17:31 → ER 17:33
DX: F10.20 Alcohol dependence, uncomplicated (principal); J32.9 Chronic sinusitis, unspecified; G40.909 Epilepsy, unspecified, not intractable, without status epilepticus; F41.9 Anxiety disorder, unspecified; F32.9 Major depressive disorder, single episode, unspecified; F17.200 Nicotine dependence, unspecified, uncomplicated; Z91.013 Allergy to seafood
CPT/HCPCS: 36415; 71020; 80053; 80306; 80320; 81000; 83690; 85025; 99283

== ENCOUNTER 2016-09-05 03:17 | Emergency (ER) | payer SELFPAY ==
[~2016-09-05] VITALS: Ht 182.9 cm; Wt 95.3 kg
[~2016-09-05 03:17] MED LIST changes: +AMOX500C2 PO
[2016-09-05 03:26] LABS: BASOPHILS # (AUTO) 0.1 10^3/uL (0.0-0.1); BASOPHILS % (AUTO) 1 % (0-10); EOSINOPHILS # (AUTO) 0.1 10^3/uL (0.0-0.3); EOSINOPHILS % (AUTO) 1 % (0-10); LYMPHOCYTES # (AUTO) 2.8 X 10^3 (1.0-4.0); LYMPHOCYTES % (AUTO) 38 % (12-44); MEAN CORPUSCULAR HEMOGLOBIN 32 PG (25-34); MEAN CORPUSCULAR HGB CONC 35 G/DL (32-36); MEAN CORPUSCULAR VOLUME 91 FL (80-99); MEAN PLATELET VOLUME 10.4 FL (7.4-10.4); MONOCYTES # (AUTO) 0.6 X 10^3 (0.0-1.0); MONOCYTES % (AUTO) 8 % (0-12); NEUTROPHILS # (AUTO) 3.9 X 10^3 (1.8-7.8); NEUTROPHILS % (AUTO) 52 % (42-75); PLATELET COUNT 280 10^3/uL (130-400); RED BLOOD COUNT 5.14 10^6/uL (4.35-5.85); RED CELL DISTRIBUTION WIDTH 13.2 % (10.0-14.5); WHITE BLOOD COUNT 7.5 10^3/uL (4.3-11.0)
[2016-09-05] MEDS ORDERED: ONDANSETRON 4 MG/2 ML (SDV) Z0FRAN IVP ONE (03:30)
[2016-09-05 03:46] LABS: ALANINE AMINOTRANSFERASE 22 U/L (0-55); ALBUMIN 4.4 GM/DL (3.2-4.5); ANION GAP 13 MMOL/L (5-14); ASPARTATE AMINO TRANSFERASE 20 U/L (5-34); BILIRUBIN,TOTAL 0.3 MG/DL (0.1-1.0); BLOOD UREA NITROGEN 9 MG/DL (7-18); BUN/CREATININE RATIO 9; CALCIUM 8.8 MG/DL (8.5-10.1); CARBON DIOXIDE 20 MMOL/L (21-32); CHLORIDE 110 MMOL/L (98-107); CREATININE SERUM 0.96 MG/DL (0.60-1.30); GFR ESTIMATED > 60; GLUCOSE 110 MG/DL (70-105); MAGNESIUM 2.3 MG/DL (1.8-2.4); POTASSIUM 3.7 MMOL/L (3.6-5.0); SODIUM 143 MMOL/L (135-145); TOTAL PROTEIN 7.2 GM/DL (6.4-8.2)
[2016-09-05 03:49] LABS: ALCOHOL 317 MG/DL (<10)
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
[2016-09-05] MEDS ORDERED: LEVETIRACETAM 500 MG (KEPPRA) TAB PO ONE (04:00)
[2016-09-05] MEDS ORDERED: NS IV 1000 ML 1,000 ML IV ONE ×2 (04:34→05:30)
[2016-09-05] MEDS ORDERED: KETOROLAC 30 MG/ML VIAL IVP ONE (05:30)
[2016-09-05 06:49] VITALS: BP 109/67
== END 2016-09-05 06:48 | disposition home or self-care (01) ==
LOC: EDUNIT# 03:17 → ER 03:19
DX: F10.229 Alcohol dependence with intoxication, unspecified (principal); G40.909 Epilepsy, unspecified, not intractable, without status epilepticus; F41.9 Anxiety disorder, unspecified; F32.9 Major depressive disorder, single episode, unspecified; F17.210 Nicotine dependence, cigarettes, uncomplicated; Z87.81 Personal history of (healed) traumatic fracture
CPT/HCPCS: 36415; 80053; 80306; 80320; 83735; 85025

== ENCOUNTER 2017-03-27 21:03 | Observation (INO) | payer SELFPAY ==
[~2017-03-27] VITALS: Ht 182.9 cm; Wt 89.4 kg
[2017-03-27] MEDS ORDERED: NS IV 1000 ML 1,000 ML IV ONE (21:04)
--- OUTSIDE RECORDS SUMMARY | 2017-03-27 21:08 | XMS REPORT ---
Author Author JERAD WEBSTER [facility] Address [address] [place] [address] Care Team Providers Care Care Connector Name Role Phone JERAD WEBSTER Unavailable PROBLEMS Type Condition ICD9-CM Code [id number] Code Onset Dates Condition Status SNOMED Code Problem Carpal tunnel syndrome, unspecified laterality G56.00 Active 70434757 Problem Grief F43.20 Active 870906098 Problem Paresthesias R20.2 Active 16813068 Problem Alcohol dependence with withdrawal, unspecified F10.239 Active 44112102 Problem Anxiety F41.9 Active 41889868 Problem Reactive depression F32.9 Active 70736119 Problem Seizure disorder G40.909 Active 015930319 ALLERGIES No Known Allergies SOCIAL HISTORY Never Assessed PLAN OF CARE Activity Details Follow Up prn Reason: VITAL SIGNS Height 70 in 2016-04-29 Weight 212.0 lbs 2016-04-29 Temperature 98.9 degrees Fahrenheit 2016-04-29 Heart Rate 96 bpm 2016-04-29 Respiratory Rate 20 2016-04-29 BMI 30.42 kg/m2 2016-04-29 Blood pressure systolic 139 mmHg 2016-04-29 Blood pressure diastolic 98 mmHg 2016-04-29 MEDICATIONS Medication Instructions Dosage Frequency Start Date End Date Duration Status Keppra 500 MG Orally 2 times a day 2 tablets 12h Active RESULTS No Results PROCEDURES No Known procedures IMMUNIZATIONS No Known Immunizations MEDICAL (GENERAL) HISTORY Type Description Date Medical History Seizures Medical History Alcoholism Surgical History Facial Reconstruction (Jaw Repaired) Hospitalization History Alcohol Detox
--- OUTSIDE RECORDS SUMMARY | 2017-03-27 21:09 | XMS REPORT ---
Author Author JERAD WEBSTER [facility] Address [address] [place] [address] Care Team Providers Care Manager Engine Name Role Phone JERAD WEBSTER Unavailable PROBLEMS Type Condition ICD9-CM Code [id number] Code Onset Dates Condition Status SNOMED Code Problem Carpal tunnel syndrome, unspecified laterality G56.00 Active 35239811 Problem Grief F43.20 Active 018878736 Problem Paresthesias R20.2 Active 24404542 Problem Alcohol dependence with withdrawal, unspecified F10.239 Active 15704347 Problem Anxiety F41.9 Active 39997966 Problem Reactive depression F32.9 Active 94358214 Problem Seizure disorder G40.909 Active 312511864 ALLERGIES No Known Allergies SOCIAL HISTORY Never Assessed PLAN OF CARE Activity Details Follow Up 3 Months, Consider stopping Keppra then Reason: VITAL SIGNS Height 70 in 2016-04-02 Weight 212.4 lbs 2016-04-02 Temperature 98.9 degrees Fahrenheit 2016-04-02 Heart Rate 92 bpm 2016-04-02 Respiratory Rate 20 2016-04-02 BMI 30.47 kg/m2 2016-04-02 Blood pressure systolic 127 mmHg 2016-04-02 Blood pressure diastolic 86 mmHg 2016-04-02 MEDICATIONS Medication Instructions Dosage Frequency Start Date End Date Duration Status Zoloft 50 mg Orally Once a day, pc 1 tablet Mar, 30 day(s) Active Keppra 500 MG Orally 2 times a day 2 tablets 12h Active RESULTS No Results PROCEDURES No Known procedures IMMUNIZATIONS No Known Immunizations MEDICAL (GENERAL) HISTORY Type Description Date Medical History Seizures Medical History Alcoholism Surgical History Facial Reconstruction (Jaw Repaired) Hospitalization History Alcohol Detox
--- OUTSIDE RECORDS SUMMARY | 2017-03-27 21:09 | XMS REPORT ---
Author Author NATALIIA VALENTE Organization [facility] Address [address] [place] [address] Care Team Providers Care Fire Protection Engineer Name Role Phone WILLIAMVALENTE Bazan Unavailable PROBLEMS Type Condition ICD9-CM Code [id number] Code Onset Dates Condition Status SNOMED Code Problem Carpal tunnel syndrome, unspecified laterality G56.00 Active 45239984 Problem Grief F43.20 Active 216726958 Problem Paresthesias R20.2 Active 09485228 Problem Alcohol dependence with withdrawal, unspecified F10.239 Active 69747888 Problem Anxiety F41.9 Active 09049737 Problem Reactive depression F32.9 Active 66401771 Problem Seizure disorder G40.909 Active 968828873 ALLERGIES No Known Allergies SOCIAL HISTORY Never Assessed PLAN OF CARE Activity Details Follow Up 2 - 3 Days w PCP already scheduled Reason: VITAL SIGNS Height 70 in 2016-03-29 Weight 213.2 lbs 2016-03-29 Temperature 97.4 degrees Fahrenheit 2016-03-29 Heart Rate 84 bpm 2016-03-29 Respiratory Rate 20 2016-03-29 BMI 30.59 kg/m2 2016-03-29 Blood pressure systolic 126 mmHg 2016-03-29 Blood pressure diastolic 76 mmHg 2016-03-29 MEDICATIONS Medication Instructions Dosage Frequency Start Date End Date Duration Status Keppra 500 MG Orally 2 times a day 2 tablets 12h Active RESULTS No Results PROCEDURES No Known procedures IMMUNIZATIONS No Known Immunizations MEDICAL (GENERAL) HISTORY Type Description Date Medical History Seizures Medical History Alcoholism Surgical History Facial Reconstruction (Jaw Repaired) Hospitalization History Alcohol Detox
--- OUTSIDE RECORDS SUMMARY | 2017-03-27 21:10 | XMS REPORT ---
Author Author JERAD WEBSTER [facility] Address [address] [place] [address] Care Team Providers Care Gasser Machine Operator Name Role Phone JERAD WEBSTER Unavailable PROBLEMS Type Condition ICD9-CM Code [id number] Code Onset Dates Condition Status SNOMED Code Problem Carpal tunnel syndrome, unspecified laterality G56.00 Active 27322264 Problem Grief F43.20 Active 687628784 Problem Paresthesias R20.2 Active 33516158 Problem Alcohol dependence with withdrawal, unspecified F10.239 Active 72168407 Problem Anxiety F41.9 Active 05892561 Problem Reactive depression F32.9 Active 09085292 Problem Seizure disorder G40.909 Active 319157257 ALLERGIES No Information SOCIAL HISTORY Never Assessed PLAN OF CARE VITAL SIGNS MEDICATIONS Unknown Medications RESULTS No Results PROCEDURES No Known procedures IMMUNIZATIONS No Known Immunizations MEDICAL (GENERAL) HISTORY Type Description Date Medical History Seizures Medical History Alcoholism Surgical History Facial Reconstruction (Jaw Repaired) Hospitalization History Alcohol Detox
--- OUTSIDE RECORDS SUMMARY | 2017-03-27 21:11 | XMS REPORT | Continuity of Care Document ---
Author Author Formerly [facility] Address Unknown Phone Unavailable Allergies Active Description Code Type Severity Reaction Onset Reported/Identified Relationship to Patient Clinical Status Yes shellfish derived [id number] Drug Allergy Mild RASH 07/25/2012 Medications There is no data. Problems Date Dx Coded Attending Type Code [...] 922.1 CONTUSION OF CHEST WALL 03/17/2011 OSULLIVAN TAPE MAKER, GENA R 922.1 CONTUSION OF CHEST WALL 07/12/2011 Ot 780.39 OTHER CONVULSIONS 07/12/2011 Ot 802.25 FX ANGLE OF JAW-CLOSED 07/12/2011 Ot 802.26 FX SYMPHY MANDIB BODY-CL 07/12/2011 Ot 850.0 CONCUSSION W/ O COMA 07/12/2011 Ot E000.8 OTHER EXTERNAL CAUSE STATUS 07/12/2011 Ot E928.9 ACCIDENT NOS 07/12/2011 Ot V06.1 DIPHTHERIA- TETANUS-PERTUSSIS, COMBINED [ 09/06/2011 Ot 920 CONTUSION FACE/ SCALP/NCK 09/06/2011 Ot E000.8 OTHER EXTERNAL CAUSE STATUS [...] DO Ot 305.90 DRUG ABUSE NEC-UNSPEC 03/04/2014 MAROCS ALEXANDER DO Ot 786.50 CHEST PAIN NOS 03/10/2014 GUILLERMINA ELIZONDO TAPE MAKER Ot 303.90 ALCOH DEP NEC/NOS-UNSPEC 03/10/2014 GUILLERMINA ELIZONDO TAPE MAKER Ot 782.0 SKIN SENSATION DISTURB 03/13/2014 JACKIE [...] Z91.14 PATIENT'S OTHER NONCOMPLIANCE WITH MEDIC 03/27/2015 ESTUARDO GRADY, EMPERATRIZ Hunter Ot F10.230 ALCOHOL DEPENDENCE WITH WITHDRAWAL, UNCO 03/27/2015 ESTUARDO GRADY, EMPERATRIZ Hunter Ot F12.10 CANNABIS ABUSE, UNCOMPLICATED 03/27/2015 ESTUARDO GRADY, EMPERATRIZ Hunter Ot F17.210 NICOTINE DEPENDENCE, CIGARETTES, UNCOMPL 03/27/2015 [...] Z91.14 PATIENT'S OTHER NONCOMPLIANCE WITH MEDIC 09/02/2015 LALIT GRADY, VERA Moncada Ot G44.209 TENSION-TYPE HEADACHE, UNSPECIFIED, NOT 09/03/2015 LALIT GRADY, VERA Moncada Ot G44.209 TENSION-TYPE HEADACHE, UNSPECIFIED, NOT 03/28/2016 SHANICE ROMERO Ot G40.909 EPILEPSY, UNSP, NOT INTRACTABLE, WITHOUT 03/28/2016 SHANICE ROMERO Ot R20.2 PARESTHESIA OF SKIN 03/28/2016 SHANICE ROMERO Ot Z53.21 PROC/TRTMT NOT CRD OUT D/T PT LV BEF SEE 03/28/2016 SHANICE ROMERO Ot Z79.899 OTHER LOAN ORIGINATOR (CURRENT) DRUG THERAPY 03/30/2016 SHANICE ROMERO Ot G40.909 EPILEPSY, UNSP, NOT INTRACTABLE, WITHOUT 03/30/2016 SHANICE ROMERO Ot R20.2 PARESTHESIA OF SKIN 03/30/2016 SHANICE ROMERO Ot Z53.21 PROC/TRTMT NOT CRD OUT D/T PT LV BEF SEE 03/30/2016 SHANICE ROMERO Ot Z79.899 OTHER FDC (CURRENT) DRUG THERAPY 08/16/2016 GUILLERMINA ELIZONDO APRN Ot F10.20 ALCOHOL DEPENDENCE, UNCOMPLICATED 08/16/2016 GUILLERMINA ELIZONDO APRN Ot F17.200 NICOTINE DEPENDENCE, UNSPECIFIED, UNCOMP 08/16/2016 GUILLERMINA ELIZONDO APRN Ot F32.9 MAJOR DEPRESSIVE DISORDER, SINGLE EPISOD 08/16/2016 GUILLERMINA ELIZONDO APRN Ot F41.9 ANXIETY DISORDER, UNSPECIFIED 08/16/2016 GUILLERMINA ELIZONDO APRN Ot G40.909 EPILEPSY, UNSP, NOT INTRACTABLE, WITHOUT 08/16/2016 GUILLERMINA ELIZONDO APRN Ot J32.9 CHRONIC SINUSITIS, UNSPECIFIED 08/16/2016 GUILLERMINA ELIZONDO APRN Ot R53.81 OTHER MALAISE 08/16/2016 GUILLERMINA ELIZONDO APRN Ot Z91.013 ALLERGY TO SEAFOOD 08/18/2016 GUILLERMINA ELIZONDO APRN Ot F10.20 ALCOHOL DEPENDENCE, UNCOMPLICATED 08/18/2016 GUILLERMINA ELIZONDO TAPE MAKER Ot F17.200 NICOTINE DEPENDENCE, UNSPECIFIED, UNCOMP 08/18/2016 GUILLERMINA ELIZONDO APRN Ot F32.9 MAJOR DEPRESSIVE DISORDER, SINGLE EPISOD 08/18/2016 GUILLERMINA ELIZONDO APRN Ot F41.9 ANXIETY DISORDER, UNSPECIFIED 08/18/2016 GUILLERMINA ELIZONDO APRN Ot G40.909 EPILEPSY, UNSP, NOT INTRACTABLE, WITHOUT 08/18/2016 GUILLERMINA ELIZONDO APRN Ot J32.9 CHRONIC SINUSITIS, UNSPECIFIED 08/18/2016 GUILLERMINA ELIZONDO APRN Ot R53.81 OTHER MALAISE 08/18/2016 GUILLERMINA ELIZONDO APRN Ot Z91.013 ALLERGY TO SEAFOOD 09/05/2016 ESTUARDO GRADY, EMPERATRIZ Hunter Ot F10.129 ALCOHOL ABUSE WITH INTOXICATION, UNSPECI 09/05/2016 ESTUARDO GRADY, EMPERATRIZ Hunter Ot F10.229 ALCOHOL DEPENDENCE WITH INTOXICATION, UN 09/05/2016 ESTUARDO GRADY, EMPERATRIZ Hunter Ot F17.210 NICOTINE DEPENDENCE, CIGARETTES, UNCOMPL 09/05/2016 ESTUARDO GRADY, EMPERATRIZ Hunter Ot F32.9 MAJOR DEPRESSIVE DISORDER, SINGLE EPISOD 09/05/2016 ESTUARDO GRADY, EMPERATRIZ Hunter Ot F41.9 ANXIETY DISORDER, UNSPECIFIED 09/05/2016 ESTUARDO GRADY, EMPERATRIZ Hunter Ot G40.909 EPILEPSY, UNSP, NOT INTRACTABLE, WITHOUT 09/05/2016 ESTUARDO GRADY, EMPERATRIZ Hunter Ot Z87.81 PERSONAL HISTORY OF (HEALED) TRAUMATIC F Procedures Code Description Performed By Performed On 76.76 07/11/2011 18406 OXIMETRY 06/01/2012 59948 ROUTINE VENIPUNCTURE 07/11/2012 77326 DILANTIN 07/11/2012 94.62 07/24/2012 94.62 04/17/2014 94517 XRAY ANKLE L COMP MIN, 3 VIEWS 05/24/2014 Results Test Result Range Complete blood count (CBC) with automated white blood cell (WBC) differential - 08/16/16 18:28 Blood leukocytes automated count (number/volume) 5.3 10*3/uL 4.3-11.0 Blood erythrocytes automated count (number/volume) 5.21 10*6/uL 4.35-5.85 Venous blood hemoglobin measurement (mass/volume) 16.3 g/dL 13.3-17.7 Blood hematocrit (volume fraction) 46 % 40-54 Automated erythrocyte mean corpuscular volume 88 [foz_us] 80-99 Automated erythrocyte mean corpuscular hemoglobin (mass per erythrocyte) 31 pg 25-34 Automated erythrocyte mean corpuscular hemoglobin concentration measurement ( mass/volume) 36 g/dL 32-36 Automated erythrocyte distribution width ratio 12.5 % 10.0-14.5 Automated blood platelet count (count/volume) 206 10*3/uL 130-400 Automated blood platelet mean volume measurement 9.8 [foz_us] 7.4-10.4 Automated blood neutrophils/100 leukocytes 54 % 42-75 Automated blood lymphocytes/100 leukocytes 35 % 12-44 Blood monocytes/100 leukocytes 10 % 0-12 Automated blood eosinophils/100 leukocytes 1 % 0-10 Automated blood basophils/100 leukocytes 1 % 0-10 Blood neutrophils automated count (number/volume) 2.9 10*3 1.8-7.8 Blood lymphocytes automated count (number/volume) 1.9 10*3 1.0-4.0 Blood monocytes automated count (number/volume) 0.5 10*3 0.0-1.0 Automated eosinophil count 0.1 10*3/uL 0.0-0.3 Automated blood basophil count (count/volume) 0.0 10*3/uL 0.0-0.1 Comprehensive metabolic panel - 08/16/16 18:28 Serum or plasma sodium measurement (moles/volume) 142 mmol/L 135-145 Serum or plasma potassium measurement (moles/volume) 3.8 mmol/L 3.6-5.0 Serum or plasma chloride measurement (moles/volume) 109 mmol/L 98-107 Carbon dioxide 21 mmol/L 21-32 Serum or plasma anion gap determination (moles/volume) 12 mmol/L 5-14 Serum or plasma urea nitrogen measurement (mass/volume) 6 mg/dL 7-18 Serum or plasma creatinine measurement (mass/volume) 0.84 mg/dL 0.60-1.30 Serum or plasma urea nitrogen/creatinine mass ratio 7 0- 20 Serum or plasma creatinine measurement with calculation of estimated glomerular filtration rate > NRG Serum or plasma glucose measurement (mass/volume) 116 mg/dL 70-105 Serum or plasma calcium measurement (mass/volume) 8.9 mg/dL 8.5-10.1 Serum or plasma total bilirubin measurement (mass/volume) 0.8 mg/dL 0.1-1.0 Serum or plasma alkaline phosphatase measurement (enzymatic activity/volume) 70 U/L 40-136 Serum or plasma aspartate aminotransferase measurement (enzymatic activity/ volume) 29 U/L 5-34 Serum or plasma alanine aminotransferase measurement (enzymatic activity/volume ) 24 U/L 0-55 Serum or plasma protein measurement (mass/volume) 7.0 g/dL 6.4-8.2 Serum or plasma albumin measurement (mass/volume) 4.2 g/dL 3.2-4.5 Lipase - 08/16/16 18:28 Lipase 25 U/L 8-78 Serum or plasma ethanol measurement (mass/volume) - 08/16/16 18:28 Serum or plasma ethanol measurement (mass/volume) 206 mg/dL <10 Complete urinalysis with reflex to culture - 08/16/16 19:13 Urine color determination YELLOW NRG Urine clarity determination CLEAR NRG Urine pH measurement by test strip 7 5-9 Specific gravity of urine by test strip 1.010 1.016- 1.022 Urine protein assay by test strip, semi-quantitative NEGATIVE NEGATIVE Urine glucose detection by automated test strip NEGATIVE NEGATIVE Erythrocytes detection in urine sediment by light microscopy NEGATIVE NEGATIVE Urine ketones detection by automated test strip NEGATIVE NEGATIVE Urine nitrite detection by test strip NEGATIVE NEGATIVE Urine total bilirubin detection by test strip NEGATIVE NEGATIVE Urine urobilinogen measurement by automated test strip (mass/volume) NORMAL NORMAL Urine leukocyte esterase detection by dipstick NEGATIVE NEGATIVE Automated urine sediment erythrocyte count by microscopy (number/high power field) NONE NRG Automated urine sediment leukocyte count by microscopy (number/high power field ) NONE NRG Bacteria detection in urine sediment by light microscopy NONE NRG Squamous epithelial cells detection in urine sediment by light microscopy RARE NRG Crystals detection in urine sediment by light microscopy NONE NRG Casts detection in urine sediment by light microscopy NONE NRG Mucus detection in urine sediment by light microscopy NEGATIVE NRG Complete urinalysis with reflex to culture NO NRG Urine drug screening test - 08/16/16 19:13 Urine phencyclidine detection by screening method NEGATIVE NEGATIVE Urine benzodiazepines detection by screening method POSITIVE NEGATIVE Urine cocaine detection NEGATIVE NEGATIVE Urine amphetamines detection by screening method NEGATIVE NEGATIVE Urine methamphetamine detection by screening method NEGATIVE NEGATIVE Urine cannabinoids detection by screening method NEGATIVE NEGATIVE Urine opiates detection by screening method NEGATIVE NEGATIVE Urine barbiturates detection NEGATIVE NEGATIVE Screening urine tricyclic antidepressants detection NEGATIVE NEGATIVE Urine methadone detection by screening method NEGATIVE NEGATIVE Urine oxycodone detection NEGATIVE NEGATIVE Urine propoxyphene detection NEGATIVE NEGATIVE Complete blood count (CBC) with automated white blood cell (WBC) differential - 09/05/16 03:20 Blood leukocytes automated count (number/volume) 7.5 10*3/uL 4.3-11.0 Blood erythrocytes automated count (number/volume) 5.14 10*6/uL 4.35-5.85 Venous blood hemoglobin measurement (mass/volume) 16.3 g/dL 13.3-17.7 Blood hematocrit (volume fraction) 47 % 40-54 Automated erythrocyte mean corpuscular volume 91 [foz_us] 80-99 Automated erythrocyte mean corpuscular hemoglobin (mass per erythrocyte) 32 pg 25-34 Automated erythrocyte mean corpuscular hemoglobin concentration measurement ( mass/volume) 35 g/dL 32-36 Automated erythrocyte distribution width ratio 13.2 % 10.0-14.5 Automated blood platelet count (count/volume) 280 10*3/uL 130-400 Automated blood platelet mean volume measurement 10.4 [foz_us] 7.4-10.4 Automated blood neutrophils/100 leukocytes 52 % 42-75 Automated blood lymphocytes/100 leukocytes 38 % 12-44 Blood monocytes/100 leukocytes 8 % 0-12 Automated blood eosinophils/100 leukocytes 1 % 0-10 Automated blood basophils/100 leukocytes 1 % 0-10 Blood neutrophils automated count (number/volume) 3.9 10*3 1.8-7.8 Blood lymphocytes automated count (number/volume) 2.8 10*3 1.0-4.0 Blood monocytes automated count (number/volume) 0.6 10*3 0.0-1.0 Automated eosinophil count 0.1 10*3/uL 0.0-0.3 Automated blood basophil count (count/volume) 0.1 10*3/uL 0.0-0.1 Comprehensive metabolic panel - 09/05/16 03:20 Serum or plasma sodium measurement (moles/volume) 143 mmol/L 135-145 Serum or plasma potassium measurement (moles/volume) 3.7 mmol/L 3.6-5.0 Serum or plasma chloride measurement (moles/volume) 110 mmol/L 98-107 Carbon dioxide 20 mmol/L 21-32 Serum or plasma anion gap determination (moles/volume) 13 mmol/L 5-14 Serum or plasma urea nitrogen measurement (mass/volume) 9 mg/dL 7-18 Serum or plasma creatinine measurement (mass/volume) 0.96 mg/dL 0.60-1.30 Serum or plasma urea nitrogen/creatinine mass ratio 9 NRG Serum or plasma creatinine measurement with calculation of estimated glomerular filtration rate > NRG Serum or plasma glucose measurement (mass/volume) 110 mg/dL 70-105 Serum or plasma calcium measurement (mass/volume) 8.8 mg/dL 8.5-10.1 Serum or plasma total bilirubin measurement (mass/volume) 0.3 mg/dL 0.1-1.0 Serum or plasma alkaline phosphatase measurement (enzymatic activity/volume) 72 U/L 40-136 Serum or plasma aspartate aminotransferase measurement (enzymatic activity/ volume) 20 U/L 5-34 Serum or plasma alanine aminotransferase measurement (enzymatic activity/volume ) 22 U/L 0-55 Serum or plasma protein measurement (mass/volume) 7.2 g/dL 6.4-8.2 Serum or plasma albumin measurement (mass/volume) 4.4 g/dL 3.2-4.5 Magnesium - 09/05/16 03:20 Magnesium 2.3 mg/dL 1.8-2.4 Serum or plasma ethanol measurement (mass/volume) - 09/05/16 03:20 Serum or plasma ethanol measurement (mass/volume) 317 mg/dL <10 Urine drug screening test - 09/05/16 06:05 Urine phencyclidine detection by screening method NEGATIVE NEGATIVE Urine benzodiazepines detection by screening method POSITIVE NEGATIVE Urine cocaine detection NEGATIVE NEGATIVE Urine amphetamines detection by screening method NEGATIVE NEGATIVE Urine methamphetamine detection by screening method NEGATIVE NEGATIVE Urine cannabinoids detection by screening method NEGATIVE NEGATIVE Urine opiates detection by screening method NEGATIVE NEGATIVE Urine barbiturates detection NEGATIVE NEGATIVE Screening urine tricyclic antidepressants detection NEGATIVE NEGATIVE Urine methadone detection by screening method NEGATIVE NEGATIVE Urine oxycodone detection NEGATIVE NEGATIVE Urine propoxyphene detection NEGATIVE NEGATIVE Encounters ACCT No. Visit Date/Time Discharge Status Pt. Type Provider Facility Loc./Unit Complaint [id number] 05/24/2014 12:27:00 05/24/2014 23:59:59 [facility] Outpatient GENA OSULLIVAN APRN [id number] 03/18/2014 13:47:00 03/18/2014 23:59:59 [facility] Outpatient JACKIE DOVE DO [id number] 08/22/2012 07:39:00 08/22/2012 23:59:59 CLS Outpatient JERAD WEBSTER MD [id number] 07/20/2012 11:11:00 Document Registration [id number] 07/11/2012 11:55:00 Document Registration [id number] 06/01/2012 18:21:00 Document Registration [id number] 09/05/2016 03:19:00 09/05/2016 06:48:00 DIS Emergency EMPERATRIZ MARTE MD [facility] ER AMS ETOH [id number] 08/16/2016 17:33:00 08/16/2016 19:45:00 DIS Emergency GUILLERMINA ELIZONDO APRN [facility] ER CONFUSION/COUGH/NAUSEA [id number] 03/28/2016 16:55:00 03/28/2016 19:00:00 DIS Emergency SHANICE ROMERO [facility] ER CONFUSION, TINGLY, "PRE-SEIZURE" [id number] 09/02/2015 13:04:00 09/02/2015 15:25:00 DIS Emergency LALIT GRADY, VERA Moncada [facility] ER HEADACHE, NECK STIFFNESS, CONFUSION [id number] 07/18/2015 13:55:00 07/18/2015 16:12:00 DIS Emergency GUILLERMINA ELIZONDO APRN [facility] ER SEIZURE [id number] 07/04/2015 04:08:00 07/04/2015 11:50:00 DIS Inpatient LUNA CAN MD [facility] ICU SUICIDE ATTEMPT,ALCOHOL INTOXICATION [id number] 03/27/2015 05:57:00 03/27/2015 09:28:00 DIS Emergency EMPERATRIZ MARTE MD [facility] ER SEIZURE [id number] 03/10/2014 16:16:00 03/10/2014 17:24:00 DIS Emergency GUILLERMINA ELIZONDO APRN [facility] ER FACIAL NUMBNESS, BLACKOUTS [id number] 03/04/2014 07:35:00 03/04/2014 09:41:00 DIS Emergency MARCOS ALEXANDER DO [facility] ER CHEST PAIN,SOA,HAND NUMBNESS [id number] 07/24/2012 09:56:00 07/28/2012 10:36:00 DIS Inpatient DARIN GRADY, JERAD [place] [facility] 4TH DETOX [id number] 03/27/2017 21:04:00 ACT Emergency SHANICE ROMERO [facility] ER SUBSTANCE ABUSE [id number] 03/14/2015 16:54:00 Document Registration [id number] 05/27/2014 15:51:00 Document Registration [id number] 09/06/2011 14:21:00 Document Registration [id number] 07/11/2011 09:26:00 Document Registration
[2017-03-27] MEDS ORDERED: ONDANSETRON 4 MG/2 ML (SDV) Z0FRAN IVP ONE (21:15)
[2017-03-27] MEDS ORDERED: LORazepam INJ 2 MG/ML (ATIVAN) VIAL IVP ONE (21:15)
[2017-03-27 21:20] LABS: BASOPHILS # (AUTO) 0.1 10^3/uL (0.0-0.1); BASOPHILS % (AUTO) 1 % (0-10); EOSINOPHILS # (AUTO) 0.1 10^3/uL (0.0-0.3); EOSINOPHILS % (AUTO) 2 % (0-10); HEMATOCRIT 51 % (40-54); HEMOGLOBIN 17.9 G/DL (13.3-17.7); LYMPHOCYTES # (AUTO) 2.3 X 10^3 (1.0-4.0); LYMPHOCYTES % (AUTO) 34 % (12-44); MEAN CORPUSCULAR HEMOGLOBIN 32 PG (25-34); MEAN CORPUSCULAR HGB CONC 35 G/DL (32-36); MEAN CORPUSCULAR VOLUME 91 FL (80-99); MEAN PLATELET VOLUME 10.1 FL (7.4-10.4); MONOCYTES # (AUTO) 0.6 X 10^3 (0.0-1.0); MONOCYTES % (AUTO) 9 % (0-12); NEUTROPHILS # (AUTO) 3.6 X 10^3 (1.8-7.8); NEUTROPHILS % (AUTO) 55 % (42-75); PLATELET COUNT 215 10^3/uL (130-400); RED BLOOD COUNT 5.53 10^6/uL (4.35-5.85); RED CELL DISTRIBUTION WIDTH 14.2 % (10.0-14.5); WHITE BLOOD COUNT 6.6 10^3/uL (4.3-11.0)
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
[2017-03-27 21:39] LABS: AMPHETAMINE SCREEN, URINE NEGATIVE (NEGATIVE); BARBITURATE SCREEN URINE NEGATIVE (NEGATIVE); BENZODIAZEPINES SCREEN URINE POSITIVE (NEGATIVE); CANNABINOID SCREEN, URINE NEGATIVE (NEGATIVE); COCAINE SCREEN URINE NEGATIVE (NEGATIVE); METHADONE STAT NEGATIVE (NEGATIVE); METHAMPHETAMINE SCREEN URINE S NEGATIVE (NEGATIVE); OPIATE SCREEN URINE NEGATIVE (NEGATIVE); OXYCODONE STAT NEGATIVE (NEGATIVE); PROPOXYPHENE STAT NEGATIVE (NEGATIVE); TRICYCLIC ANTIDEPRESSANTS SCRE NEGATIVE (NEGATIVE)
[2017-03-27 21:41] LABS: COLOR,URINE YELLOW
[2017-03-27 21:42] LABS: BILIRUBIN,URINE NEGATIVE (NEGATIVE); CLARITY,URINE CLEAR; GLUCOSE, URINE (UA) NEGATIVE (NEGATIVE); KETONES,URINE NEGATIVE (NEGATIVE); LEUKOCYTE ESTERASE ,URINE NEGATIVE (NEGATIVE); NITRITE,URINE NEGATIVE (NEGATIVE); PH,URINE 6.5 (5-9); PROTEIN,URINE NEGATIVE (NEGATIVE); UROBILINOGEN,URINE NORMAL (NORMAL); WBC,URINE RARE /HPF
[2017-03-27 21:43] LABS: BACTERIA,URINE NEGATIVE /HPF
[2017-03-27 21:47] LABS: ALANINE AMINOTRANSFERASE 371 U/L (0-55); ALBUMIN 4.4 GM/DL (3.2-4.5); ALKALINE PHOSPHATASE 120 U/L (40-136); BILIRUBIN,TOTAL 0.6 MG/DL (0.1-1.0); BUN/CREATININE RATIO 14; CALCIUM 8.9 MG/DL (8.5-10.1); CARBON DIOXIDE 19 MMOL/L (21-32); CHLORIDE 108 MMOL/L (98-107); GFR ESTIMATED > 60; GLUCOSE 111 MG/DL (70-105); POTASSIUM 3.9 MMOL/L (3.6-5.0); SALICYLATE < 5.0 MG/DL (5.0-20.0); SODIUM 145 MMOL/L (135-145); TOTAL PROTEIN 7.5 GM/DL (6.4-8.2)
[2017-03-27 21:52] LABS: ACETAMINOPHEN < 10 UG/ML (10-30)
[2017-03-28] MEDS ORDERED: NS IV 1000 ML 1,000 ML IV ONE (00:29)
--- OUTSIDE RECORDS SUMMARY | 2017-03-28 00:53 | XMS REPORT | Continuity of Care Document ---
Author Author [facility] Address Unknown Phone Unavailable Allergies Active Description Code Type Severity Reaction Onset Reported/Identified Relationship to Patient Clinical Status Yes shellfish derived [id number] Drug Allergy Mild RASH 07/25/2012 Medications There [...] 922.1 CONTUSION OF CHEST WALL 03/17/2011 OSULLIVAN CONVEYOR TECHNICIAN, GENA R 922.1 CONTUSION OF CHEST WALL [...] 786.50 CHEST PAIN NOS 03/10/2014 GUILLERMINA ELIZONDO CONVEYOR TECHNICIAN Ot 303.90 ALCOH DEP NEC/NOS-UNSPEC 03/10/2014 GUILLERMINA ELIZONDO CONVEYOR TECHNICIAN Ot 782.0 SKIN SENSATION DISTURB 03/13/2014 JACKIE [...] HEADACHE, UNSPECIFIED, NOT 09/03/2015 LALIT GRADY, VERA Mnocada Ot G44.209 TENSION-TYPE HEADACHE, UNSPECIFIED, NOT 03/28/2016 SHANICE ROMERO Ot G40.909 EPILEPSY, UNSP, NOT INTRACTABLE, WITHOUT 03/28/2016 SHANICE ROMERO Ot R20.2 PARESTHESIA OF SKIN 03/28/2016 SHANICE ROMERO Ot Z53.21 PROC/TRTMT NOT CRD OUT D/T PT LV BEF SEE 03/28/2016 SHANICE ROMERO Ot Z79.899 OTHER FLYER BUILDER (CURRENT) DRUG THERAPY 03/30/2016 SHANICE ROMERO Ot G40.909 EPILEPSY, UNSP, NOT INTRACTABLE, WITHOUT 03/30/2016 SHANICE ROMERO Ot R20.2 PARESTHESIA OF SKIN 03/30/2016 SHANICE ROMERO Ot Z53.21 PROC/TRTMT NOT CRD OUT D/T PT LV BEF SEE 03/30/2016 SHANICE ROMERO Ot Z79.899 OTHER SHELTER (CURRENT) DRUG THERAPY 08/16/2016 GUILLERMINA ELIZONDO APRN [...] F10.20 ALCOHOL DEPENDENCE, UNCOMPLICATED 08/18/2016 GUILLERMINA ELIZONDO CONVEYOR TECHNICIAN Ot F17.200 NICOTINE DEPENDENCE, UNSPECIFIED, UNCOMP 08/18/2016 [...] Description Performed By Performed On 76.76 07/11/2011 86486 OXIMETRY 06/01/2012 90321 ROUTINE VENIPUNCTURE 07/11/2012 58143 DILANTIN 07/11/2012 94.62 07/24/2012 94.62 04/17/2014 47194 XRAY ANKLE L COMP MIN, 3 VIEWS [...] automated white blood cell (WBC) differential - 03/27/17 21:05 Blood leukocytes automated count (number/volume) 6.6 10*3/uL 4.3-11.0 Blood erythrocytes automated count (number/volume) 5.53 10*6/uL 4.35-5.85 Venous blood hemoglobin measurement (mass/volume) 17.9 g/dL 13.3-17.7 Blood hematocrit (volume fraction) 51 % 40-54 Automated erythrocyte mean corpuscular volume 91 [foz_us] 80-99 Automated erythrocyte mean corpuscular hemoglobin (mass per erythrocyte) 32 pg 25-34 Automated erythrocyte mean corpuscular hemoglobin concentration measurement ( mass/volume) 35 g/dL 32-36 Automated erythrocyte distribution width ratio 14.2 % 10.0-14.5 Automated blood platelet count (count/volume) 215 10*3/uL 130-400 Automated blood platelet mean volume measurement 10.1 [foz_us] 7.4-10.4 Automated blood neutrophils/100 leukocytes 55 % 42-75 Automated blood lymphocytes/100 leukocytes 34 % 12-44 Blood monocytes/100 leukocytes 9 % 0-12 Automated blood eosinophils/100 leukocytes 2 % 0-10 Automated blood basophils/100 leukocytes 1 % 0-10 Blood neutrophils automated count (number/volume) 3.6 10*3 1.8-7.8 Blood lymphocytes automated count (number/volume) 2.3 10*3 1.0-4.0 Blood monocytes automated count (number/volume) 0.6 10*3 0.0-1.0 Automated eosinophil count 0.1 10*3/uL 0.0-0.3 Automated blood basophil count (count/volume) 0.1 10*3/uL 0.0-0.1 Comprehensive metabolic panel - 03/27/17 21:05 Serum or plasma sodium measurement (moles/volume) 145 mmol/L 135-145 Serum or plasma potassium measurement (moles/volume) 3.9 mmol/L 3.6-5.0 Serum or plasma chloride measurement (moles/volume) 108 mmol/L 98-107 Carbon dioxide 19 mmol/L 21-32 Serum or plasma anion gap determination (moles/volume) 18 mmol/L 5-14 Serum or plasma urea nitrogen measurement (mass/volume) 13 mg/dL 7-18 Serum or plasma creatinine measurement (mass/volume) 0.90 mg/dL 0.60-1.30 Serum or plasma urea nitrogen/creatinine mass ratio 14 NRG Serum or plasma creatinine measurement with calculation of estimated glomerular filtration rate > NRG Serum or plasma glucose measurement (mass/volume) 111 mg/dL 70-105 Serum or plasma calcium measurement (mass/volume) 8.9 mg/dL 8.5-10.1 Serum or plasma total bilirubin measurement (mass/volume) 0.6 mg/dL 0.1-1.0 Serum or plasma alkaline phosphatase measurement (enzymatic activity/volume) 120 U/L 40-136 Serum or plasma aspartate aminotransferase measurement (enzymatic activity/ volume) 324 U/L 5-34 Serum or plasma alanine aminotransferase measurement (enzymatic activity/volume ) 371 U/L 0-55 Serum or plasma protein measurement (mass/volume) 7.5 g/dL 6.4-8.2 Serum or plasma albumin measurement (mass/volume) 4.4 g/dL 3.2-4.5 Serum or plasma salicylates measurement (mass/volume) - 03/27/17 21:05 Serum or plasma salicylates measurement (mass/volume) < mg/dL 5.0-20.0 Serum or plasma acetaminophen measurement (mass/volume) - 03/27/17 21:05 Serum or plasma acetaminophen measurement (mass/volume) < ug/mL 10-30 Serum or plasma ethanol measurement (mass/volume) - 03/27/17 21:05 Serum or plasma ethanol measurement (mass/volume) 369 mg/dL <10 Serum or plasma thyrotropin measurement by detection limit <=0.05 miu/l (units/ volume) - 03/27/17 21:05 Serum or plasma thyrotropin measurement by detection limit <=0.05 miu/l (units/ volume) 0.74 u[iU]/mL 0.35-4.94 Urine drug screening test - 03/27/17 21:17 Urine phencyclidine detection by screening method NEGATIVE [...] NEGATIVE Urine propoxyphene detection NEGATIVE NEGATIVE Complete urinalysis with reflex to culture - 03/27/17 21:17 Urine color determination YELLOW NRG Urine clarity determination CLEAR NRG Urine pH measurement by test strip 6.5 5-9 Specific gravity of urine by test strip 1.005 1.016- 1.022 Urine protein assay by test [...] count by microscopy (number/high power field ) RARE NRG Bacteria detection in urine sediment by light microscopy NEGATIVE NRG Squamous epithelial cells detection in urine sediment by light microscopy NONE NRG Crystals detection in urine sediment by light microscopy NONE NRG Casts detection in urine sediment by light microscopy NONE NRG Mucus detection in urine sediment by light microscopy NEGATIVE NRG Complete urinalysis with reflex to culture NO NRG Renal epithelial cells detection in urine sediment by light microscopy NONE NRG Encounters ACCT No. Visit Date/Time Discharge Status Pt. Type Provider Facility Loc./Unit Complaint [id number] 05/24/2014 12:27:00 05/24/2014 23:59:59 CLS Outpatient GENA OSULLIVAN APRN [id number] 03/18/2014 13:47:00 03/18/2014 23:59:59 CLS Outpatient JACKIE DOVE DO [id number] 08/22/2012 07:39:00 08/22/2012 23:59:59 CLS Outpatient JERAD WEBSTER MD [id number] 07/20/2012 11:11:00 Document Registration [id number] 07/11/2012 11:55:00 Document Registration [id number] 06/01/2012 18:21:00 Document Registration [id number] 09/05/2016 03:19:00 09/05/2016 06:48:00 DIS Emergency EMPERATRIZ MARTE MD [facility] ER AMS ETOH [id number] 08/16/2016 17:33:00 08/16/2016 19:45:00 DIS Emergency GUILLERMINA ELIZONDO APRN [facility] ER CONFUSION/COUGH/NAUSEA [id number] 03/28/2016 16:55:00 03/28/2016 19:00:00 DIS Emergency SHANICE ROMERO [facility] ER CONFUSION, TINGLY, "PRE-SEIZURE" [id number] 09/02/2015 13:04:00 09/02/2015 15:25:00 DIS Emergency LALIT GRADY, VERA Moncada [facility] ER HEADACHE, NECK STIFFNESS, CONFUSION [id number] 07/18/2015 13:55:00 07/18/2015 16:12:00 DIS Emergency GUILLERMINA ELIZONDO CONVEYOR TECHNICIAN [facility] ER SEIZURE [id number] 07/04/2015 04:08:00 07/04/2015 11:50:00 DIS Inpatient PAMELLA GRADY, LUNA Humphries [facility] ICU SUICIDE ATTEMPT,ALCOHOL INTOXICATION [id number] 03/27/2015 05:57:00 03/27/2015 09:28:00 DIS Emergency ESTUARDO GRADY, EMPERATRIZ S [facility] ER SEIZURE [id number] 03/10/2014 16:16:00 03/10/2014 17:24:00 DIS Emergency GUILLERMINA ELIZONDO CONVEYOR TECHNICIAN [facility] ER FACIAL NUMBNESS, BLACKOUTS [id number] 03/04/2014 07:35:00 03/04/2014 09:41:00 DIS Emergency MARCOS LAEXANDER DO [facility] ER CHEST PAIN,SOA,HAND NUMBNESS [id number] 07/24/2012 09:56:00 07/28/2012 10:36:00 DIS Inpatient DARIN GRADY, JERAD [place] [facility] 4TH DETOX [id number] 03/28/2017 00:30:00 ACT Inpatient JACQUELIN MAYBERRY DO [facility] 4TH ETOH INTOXICATION AND DELIRIUM, ETOH ABUSE, [id number] 03/14/2015 16:54:00 Document Registration [id number] 05/27/2014 15:51:00 Document Registration [id number] 09/06/2011 14:21:00 Document Registration [id number] 07/11/2011 09:26:00 Document Registration
[2017-03-28 01:30] VITALS: BP 126/81
[2017-03-28] MEDS ORDERED: 1/2 NS IV SOLUTION 1,000 ML IV PRN (02:08)
[2017-03-28] MEDS ORDERED: ONDANSETRON 4 MG/2 ML (SDV) Z0FRAN IV PRN ×2 (02:15)
[2017-03-28] MEDS ORDERED: ANTACID SUSP 30 ML UDC (MYLANTA) PO PRN (02:15)
[2017-03-28] MEDS ORDERED: D5 1/2 NS 1000 ML IV SOLUTION 1,000 ML IV PRN (02:15)
[2017-03-28] MEDS ORDERED: SENNA W/DOCUSATE (SENOKOT S) TABLET PO PRN (02:15)
[2017-03-28] MEDS ORDERED: LORazepam 1 MG (ATIVAN) TAB PO PRN (02:15)
[2017-03-28] MEDS ORDERED: KETOROLAC 30 MG/ML VIAL IV PRN (02:15)
[2017-03-28] MEDS ORDERED: ONDANSETRON 4 MG (ZOFRAN) ORAL DISSOLVE TAB SL PRN (02:15)
[2017-03-28] MEDS ORDERED: LORazepam INJ 2 MG/ML (ATIVAN) VIAL IM/IV PRN (02:15)
[2017-03-28] MEDS: THIAMINE INJECTION 100 MG, FOLIC ACID INJECTION 1 MG, MAGNESIUM SULFATE 2 GM, VITAMIN M... IV SCH ×10 (02:34→08:41)
[2017-03-28] MEDS: LORazepam INJ 2 MG/ML (ATIVAN) VIAL IV PRN ×2 (02:40→04:11)
[2017-03-28] MEDS: D5 1/2 NS W/KCL 20 MEQ/L 1,000 ML IV SCH ×2 (02:55→08:23)
[2017-03-28 03:45] VITALS: BP 116/76
[2017-03-28 05:31] LABS: BASOPHILS # (AUTO) 0.1 10^3/uL (0.0-0.1); BASOPHILS % (AUTO) 1 % (0-10); EOSINOPHILS # (AUTO) 0.1 10^3/uL (0.0-0.3); EOSINOPHILS % (AUTO) 2 % (0-10); HEMATOCRIT 45 % (40-54); HEMOGLOBIN 15.7 G/DL (13.3-17.7); LYMPHOCYTES # (AUTO) 2.2 X 10^3 (1.0-4.0); LYMPHOCYTES % (AUTO) 40 % (12-44); MEAN CORPUSCULAR HEMOGLOBIN 33 PG (25-34); MEAN CORPUSCULAR HGB CONC 35 G/DL (32-36); MEAN CORPUSCULAR VOLUME 93 FL (80-99); MEAN PLATELET VOLUME 9.9 FL (7.4-10.4); MONOCYTES # (AUTO) 0.5 X 10^3 (0.0-1.0); MONOCYTES % (AUTO) 10 % (0-12); NEUTROPHILS # (AUTO) 2.6 X 10^3 (1.8-7.8); NEUTROPHILS % (AUTO) 48 % (42-75); PLATELET COUNT 191 10^3/uL (130-400); RED BLOOD COUNT 4.79 10^6/uL (4.35-5.85); RED CELL DISTRIBUTION WIDTH 14.1 % (10.0-14.5); WHITE BLOOD COUNT 5.4 10^3/uL (4.3-11.0)
[2017-03-28 06:03] LABS: PROTHROMBIN TIME PATIENT 13.1 SEC (12.2-14.7)
[2017-03-28 06:14] LABS: ALANINE AMINOTRANSFERASE 289 U/L (0-55); ALBUMIN 3.6 GM/DL (3.2-4.5); ALKALINE PHOSPHATASE 84 U/L (40-136); BILIRUBIN,TOTAL 0.5 MG/DL (0.1-1.0); BUN/CREATININE RATIO 14; CALCIUM 7.5 MG/DL (8.5-10.1); CARBON DIOXIDE 20 MMOL/L (21-32); CHLORIDE 107 MMOL/L (98-107); CREATININE SERUM 0.78 MG/DL (0.60-1.30); GFR ESTIMATED > 60; GLUCOSE 118 MG/DL (70-105); POTASSIUM 3.5 MMOL/L (3.6-5.0); SODIUM 140 MMOL/L (135-145); TOTAL PROTEIN 5.7 GM/DL (6.4-8.2)
[2017-03-28] MEDS ORDERED: INFLUENZA TRIvalent 2017-2018 0.5 ML/45 MCG SYR IM ONE (07:00)
[2017-03-28 08:00] VITALS: BP 111/67
[2017-03-28] MEDS ORDERED: LEVE500T6 PO (08:50)
--- NOTE | 2017-03-28 08:52 | History & Physicial (CHS) ---
HPI Attending Physician Nette Khan DO [facility] Consult Date of Admission Mar 28, 2017 at 00:30 Home Medications Home Medications Reviewed patient Home Medication Reconciliation Form Allergies Coded Allergies: shellfish derived (Unverified Allergy, Mild, RASH, 07/25/12) STATES " ITCHY THROAT, AND FACES GETS RED" SPE-Ocplyi-Tgglzk Hx Patient Social History Alcohol Use: Regular Use Recreational Drug Use: Yes Drug of Choice: past lsd, current weed Smoking Status: Current Everyday Smoker Type Used: Cigarettes Recent Foreign Travel: No Contact w/other who traveled: No Recent Hopitalizations: No Recent Infectious Disease Expo: No Physical Abuse Screen: No Sexual Abuse: No Immunizations Up To Date Tetanus Booster (TDap): Unknown Past Medical History Past Medical History 1. Alcoholism 2. History of seizures with alcohol withdrawal 3. Chronic THC use 4. Tobaccoism 5. Depression 6. Admission for Detox 08/03 with patient supposed to be going to [facility], then outpatient arranged this week for patient after outpatient detox 04/07, 7. Transaminitis Past Surgical History 1. ORIF bilateral mandible fracture 2011 Dr. Perla Family Medical History Significant Family History: No Pertinent Family Hx Physical Exam-([facility]) Physical Exam Vital Signs VS - Last 72 Hours, by Label 03/27/17 03/28/17 03/28/17 03/28/17 21:10 01:00 01:30 01:54 Temp 97.8 96.8 Pulse 84 79 83 84 Resp 18 18 18 B/P (MAP) 138/110 (119) 126/81 (96) Pulse Ox 98 96 97 O2 Delivery Room Air Room Air 03/28/17 03/28/17 03/28/17 03/28/17 02:11 03:45 07:00 08:15 Temp 97.5 Pulse 85 85 Resp 16 B/P (MAP) 116/76 (89) Pulse Ox 97 97 O2 Delivery Room Air Room Air Room Air 03/28/17 03/28/17 08:29 08:32 Pulse Ox 98 98 O2 Delivery Room Air Room Air Capillary Refill : Less Than 3 SecondsLess Than 3 Seconds Clinical Quality Measures DVT/VTE Risk/Contraindication: Risk Factor Score Per Nursin RFS Level Per Nursing on Admit: 1=Low/No VTE PPX STEVE FREIRE MD Mar 28, 2017 08:52
[2017-03-28] MEDS ORDERED: FAMOTIDINE 20MG/2ML IV (PEPCID) IV SCH (09:00)
[2017-03-28] MEDS ORDERED: OSELTAMIVIR 75 MG (TAMIFLU) BOX OF 10 PO SCH (09:00)
[2017-03-28 12:00] VITALS: BP 125/69
[2017-03-28] MEDS ORDERED: OSLT75C PO (13:19)
[2017-03-28] MEDS ORDERED: LORA-405 PO (13:23)
--- NOTE | 2017-03-28 13:28 | Discharge Instructions ---
Discharge Inst-[facility] Discharge Medications New, Converted or Re-Newed RX: Call to Patients Pharmacy New Medications: Lorazepam (Ativan) 1 Mg Tablet 1 MG PO BID for 1 Day, #2 TAB 0 Refills PLEASE TAKE 1 TAB AT 3PM AND ONE TAB AT 10PM. YOU SHOULD FOLLOW UP AT [facility]/K AT 03/29/17 AT 9AM TO DISCUSS FURTHER DOSES OF ATIVAN. Oseltamivir Phosphate (Tamiflu) 75 Mg Cap 0 EACH PO BID for 5 Days, CAP Continued Medications: Levetiracetam (Levetiracetam) 500 Mg Tablet 1000 MG PO BID, TAB TAKES 2 (500MG) TABLETS Patient Instructions Goal/Follow Up Appt: WEDNESDAY MARCH 29, 2017 AT 9AM WITH KIAN TRAN Patient Instructions: PLEASE TAKE THE ATIVAN PRESCRIBED. YOU WILL NOT RECEIVE MORE DOSES UNTIL YOU ARE SEEN AT THE CLINIC. WE STRONGLY RECOMMEND THAT YOU COMMIT TO AN INPATIENT PROGRAM, BUT YOU HAVE DECLINED THESE SERVICES AT THIS TIME. YOU HAVE AGREED NOT TO DRINK ALCOHOL WHILE WE ARE PRESCRIBING BENZODIAZEPINES TO YOU. WE WILL PERFORM AN ALCOHOL SWAB TOMORROW TO MAKE SURE YOU ARE CONTINUING WITH YOUR PART OF THE AGREEMENT FOR THE OUTPATIENT TAPER. Return to The Hospital For: HALLUCINATIONS, SEIZURE ACTIVITY -- WE HAVE PRESCRIBED ATIVAN TO KEEP YOU SAFE AT HOME. PLEASE TAKE IT APPROPRIATELY SO THAT YOU CAN AVOID THESE RISKS. Activity & Diet Discharge Diet: No Restrictions Activity as Tolerated: Yes Orders-Post D/C & Referrals Pneu Vac Indicated: Yes Copy Copies To 1: STEVE FREIRE MD, JULIE A MD Mar 28, 2017 1:27 pm
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
== END 2017-03-28 13:23 | disposition home or self-care (01) ==
LOC: EDUNIT# 21:03 → ER 21:04 → 4TH 21:05 → UNDOADMOB 03-28 00:30 → 4TH 03-28 01:30 → UNDODISOB 03-28 15:04
PROVIDERS: ADMIT Family Medicine; ATTEND Family Medicine
DX: F10.221 Alcohol dependence with intoxication delirium (principal); J11.1 Influenza due to unidentified influenza virus with other respiratory manifestations; F17.210 Nicotine dependence, cigarettes, uncomplicated; F32.9 Major depressive disorder, single episode, unspecified; F12.90 Cannabis use, unspecified, uncomplicated; Z79.899 Other long term (current) drug therapy
CPT/HCPCS: 36415; 80053; 80177; 80306; 80320; 80329; 81000; 84443; 85025; 85610; 85730; 93005; 93041; 94760; 96374; G0378

== ENCOUNTER 2017-04-29 12:00 | Emergency (ER) | payer SELFPAY ==
[~2017-04-29 12:00] MED LIST changes: +LEVE500T6 PO; +LORA-405 PO; +OSLT75C PO
== END 2017-04-29 12:40 | disposition left against medical advice (07) ==
LOC: EDUNIT# 12:00 → ER 12:02
DX: R09.89 Other specified symptoms and signs involving the circulatory and respiratory systems (principal); R23.8 Other skin changes; T50.905A Adverse effect of unspecified drugs, medicaments and biological substances, initial encounter

== ENCOUNTER 2017-11-21 19:55 | Emergency (ER) | payer SELFPAY ==
[~2017-11-21] VITALS: Ht 182.9 cm; Wt 90.7 kg
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
[2017-11-21] MEDS ORDERED: HYDROcodone/APAP 5 MG/325 MG (LORTAB) TAB PO ONE (21:00)
[2017-11-21 21:30] LABS: BASOPHILS # (AUTO) 0.1 10^3/uL (0.0-0.1); BASOPHILS % (AUTO) 1 % (0-10); EOSINOPHILS # (AUTO) 0.3 10^3/uL (0.0-0.3); EOSINOPHILS % (AUTO) 3 % (0-10); HEMATOCRIT 45 % (40-54); HEMOGLOBIN 15.3 G/DL (13.3-17.7); LYMPHOCYTES # (AUTO) 1.9 X 10^3 (1.0-4.0); LYMPHOCYTES % (AUTO) 17 % (12-44); MEAN CORPUSCULAR HEMOGLOBIN 31 PG (25-34); MEAN CORPUSCULAR HGB CONC 34 G/DL (32-36); MEAN CORPUSCULAR VOLUME 89 FL (80-99); MEAN PLATELET VOLUME 10.6 FL (7.4-10.4); MONOCYTES # (AUTO) 0.7 X 10^3 (0.0-1.0); MONOCYTES % (AUTO) 6 % (0-12); NEUTROPHILS % (AUTO) 73 % (42-75); PLATELET COUNT 236 10^3/uL (130-400); RED CELL DISTRIBUTION WIDTH 12.6 % (10.0-14.5); WHITE BLOOD COUNT 10.8 10^3/uL (4.3-11.0)
[2017-11-21 21:36] LABS: PROTHROMBIN TIME PATIENT 13.3 SEC (12.2-14.7)
--- NOTE | 2017-11-21 21:37 | Diagnostic Imaging Report ---
INDICATION: Fall downstairs. Left lateral foot pain and swelling. FINDINGS: There does appear to be some soft tissue swelling overlying the lateral aspect of the foot on the PA view. There appears to be a small avulsive fracture off of the lateral aspect of the cuboid. No other foot fracture evident. There is no dislocation. IMPRESSION: 1. Small avulsive fracture off of the lateral aspect of the cuboid. There is no other fracture or evidence of dislocation. Dictated by: Dictated on workstation # [id number]
[2017-11-21] MEDS ORDERED: HYDR-4226 PO (21:44)
[2017-11-21] MEDS ORDERED: RX-HYDROCODONE/APAP 5/325 MG #4 TAB PK PO PRN (21:45)
[2017-11-21 22:07] VITALS: BP 136/92
== END 2017-11-21 22:10 | disposition home or self-care (01) ==
LOC: EDUNIT# 19:55 → ER 19:56
DX: S92.212A Displaced fracture of cuboid bone of left foot, initial encounter for closed fracture (principal); G40.909 Epilepsy, unspecified, not intractable, without status epilepticus; F41.9 Anxiety disorder, unspecified; F32.9 Major depressive disorder, single episode, unspecified; X50.1XXA Overexertion from prolonged static or awkward postures, initial encounter
CPT/HCPCS: 36415; 73630; 85025; 85610; 85730

== ENCOUNTER 2018-04-09 11:56 | Emergency (ER) | payer SELFPAY ==
[~2018-04-09] VITALS: Ht 182.9 cm; Wt 93.0 kg
[~2018-04-09 11:56] MED LIST changes: +HYDR-4226 PO
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
--- NOTE | 2018-04-09 13:15 | Diagnostic Imaging Report ---
INDICATION: Cough, left lower rib pain. FINDINGS: Three views of the left ribs show no fracture or other bony abnormality. There is no effusion or pneumothorax. IMPRESSION: Normal left ribs. Dictated by: Dictated on workstation # [id number]
--- NOTE | 2018-04-09 13:25 | NUR ---
PT SLEEPING WITH EYES CLOSED.
--- NOTE | 2018-04-09 13:50 | NUR ---
TALKED WITH PT CONCERNING HOW MUSCLE RELAXERS CAN MAKE YOU SLEEPY AND TO BE CAREFUL BECAUSE HE HAS BEEN ASLEEP THE WHOLE TIME HE HAS BEEN HERE.
[2018-04-09] MEDS ORDERED: CYCL10TA9 PO (13:51)
[2018-04-09 13:55] VITALS: BP 95/75
== END 2018-04-09 13:55 | disposition home or self-care (01) ==
LOC: EDUNIT# 11:56 → ER 11:57
DX: R07.81 Pleurodynia (principal); G40.909 Epilepsy, unspecified, not intractable, without status epilepticus; F41.9 Anxiety disorder, unspecified; F32.9 Major depressive disorder, single episode, unspecified; F12.10 Cannabis abuse, uncomplicated; F17.210 Nicotine dependence, cigarettes, uncomplicated; Z91.013 Allergy to seafood
CPT/HCPCS: 71100

== ENCOUNTER 2018-06-27 01:29 | Emergency (ER) | payer SELFPAY ==
[~2018-06-27] VITALS: Ht 182.9 cm; Wt 93.0 kg
[~2018-06-27 01:29] MED LIST changes: +CYCL10TA9 PO
[2018-06-27] MEDS ORDERED: SERT25TA PO (01:40)
[2018-06-27] MEDS ORDERED: QUET25TA PO (01:40)
[2018-06-27] MEDS ORDERED: LACTATED RINGERS 1,000 ML IV ONE (01:44)
[2018-06-27] MEDS ORDERED: ONDANSETRON 4 MG (ZOFRAN) ORAL DISSOLVE TAB SL STA (01:44)
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
[2018-06-27 01:55] LABS: BASOPHILS % (AUTO) 1 % (0-10); EOSINOPHILS # (AUTO) 0.1 10^3/uL (0.0-0.3); EOSINOPHILS % (AUTO) 1 % (0-10); HEMATOCRIT 43 % (40-54); HEMOGLOBIN 14.7 G/DL (13.3-17.7); LYMPHOCYTES # (AUTO) 2.3 X 10^3 (1.0-4.0); LYMPHOCYTES % (AUTO) 29 % (12-44); MEAN CORPUSCULAR HEMOGLOBIN 32 PG (25-34); MEAN CORPUSCULAR HGB CONC 35 G/DL (32-36); MEAN CORPUSCULAR VOLUME 91 FL (80-99); MEAN PLATELET VOLUME 9.6 FL (7.4-10.4); MONOCYTES # (AUTO) 0.6 X 10^3 (0.0-1.0); MONOCYTES % (AUTO) 7 % (0-12); NEUTROPHILS # (AUTO) 4.9 X 10^3 (1.8-7.8); NEUTROPHILS % (AUTO) 62 % (42-75); PLATELET COUNT 262 10^3/uL (130-400); RED CELL DISTRIBUTION WIDTH 13.2 % (10.0-14.5); WHITE BLOOD COUNT 7.9 10^3/uL (4.3-11.0)
[2018-06-27 02:12] LABS: BILIRUBIN,URINE NEGATIVE (NEGATIVE); CLARITY,URINE CLEAR; COLOR,URINE YELLOW; GLUCOSE, URINE (UA) NEGATIVE (NEGATIVE); KETONES,URINE NEGATIVE (NEGATIVE); LEUKOCYTE ESTERASE ,URINE NEGATIVE (NEGATIVE); NITRITE,URINE NEGATIVE (NEGATIVE); PH,URINE 7 (5-9); PROTEIN,URINE NEGATIVE (NEGATIVE); UROBILINOGEN,URINE NORMAL (NORMAL)
[2018-06-27 02:13] LABS: ALANINE AMINOTRANSFERASE 24 U/L (0-55); ALBUMIN 4.4 GM/DL (3.2-4.5); ALKALINE PHOSPHATASE 71 U/L (40-136); AMYLASE 91 U/L (25-125); BILIRUBIN,TOTAL 0.3 MG/DL (0.1-1.0); BUN/CREATININE RATIO 11; CALCIUM 8.8 MG/DL (8.5-10.1); CARBON DIOXIDE 19 MMOL/L (21-32); CHLORIDE 109 MMOL/L (98-107); CREATININE SERUM 0.89 MG/DL (0.60-1.30); GFR ESTIMATED > 60; GLUCOSE 113 MG/DL (70-105); LIPASE 27 U/L (8-78); MAGNESIUM 2.3 MG/DL (1.8-2.4); POTASSIUM 3.8 MMOL/L (3.6-5.0); SODIUM 142 MMOL/L (135-145); TOTAL PROTEIN 6.9 GM/DL (6.4-8.2)
[2018-06-27 02:18] LABS: BACTERIA,URINE NEGATIVE /HPF; SQUAMOUS EPITHELIAL CELL,UR 0-2 /HPF
[2018-06-27 02:28] LABS: AMPHETAMINE SCREEN, URINE NEGATIVE (NEGATIVE); BARBITURATE SCREEN URINE NEGATIVE (NEGATIVE); BENZODIAZEPINES SCREEN URINE POSITIVE (NEGATIVE); CANNABINOID SCREEN, URINE POSITIVE (NEGATIVE); COCAINE SCREEN URINE NEGATIVE (NEGATIVE); METHADONE STAT NEGATIVE (NEGATIVE); METHAMPHETAMINE SCREEN URINE S NEGATIVE (NEGATIVE); OPIATE SCREEN URINE NEGATIVE (NEGATIVE); OXYCODONE STAT NEGATIVE (NEGATIVE); PROPOXYPHENE STAT NEGATIVE (NEGATIVE); TRICYCLIC ANTIDEPRESSANTS SCRE POSITIVE (NEGATIVE)
[2018-06-27] MEDS ORDERED: RX-ONDANSETRON 4 MG ODT (ZOFRAN) PPK #4 PO STA (02:28)
[2018-06-27] MEDS ORDERED: RX-ONDANSETRON 4 MG ODT (ZOFRAN) PPK #4 ONE (02:29)
[2018-06-27 02:40] VITALS: BP 122/91
== END 2018-06-27 02:42 | disposition home or self-care (01) ==
LOC: EDUNIT# 01:29 → ER 01:33
DX: F10.229 Alcohol dependence with intoxication, unspecified (principal); R11.2 Nausea with vomiting, unspecified; F19.10 Other psychoactive substance abuse, uncomplicated; G40.909 Epilepsy, unspecified, not intractable, without status epilepticus; F41.9 Anxiety disorder, unspecified; F31.9 Bipolar disorder, unspecified; F12.10 Cannabis abuse, uncomplicated; F17.210 Nicotine dependence, cigarettes, uncomplicated; Z98.890 Other specified postprocedural states; Z91.5 Personal history of self-harm
CPT/HCPCS: 36415; 80053; 80306; 80320; 81000; 82150; 83690; 83735; 85025; 93041; 96360

== ENCOUNTER 2018-12-08 17:39 | Emergency (ER) | payer SELFPAY ==
[~2018-12-08] VITALS: Ht 182 cm; Wt 90.0 kg
[~2018-12-08 17:39] MED LIST changes: +QUET25TA PO; +SERT25TA PO
[2018-12-08] MEDS ORDERED: LACTATED RINGERS 1,000 ML IV ONE ×2 (17:52→18:28)
[2018-12-08 18:00] LABS: BASOPHILS # (AUTO) 0.1 10^3/uL (0.0-0.1); BASOPHILS % (AUTO) 2 % (0-10); EOSINOPHILS % (AUTO) 1 % (0-10); HEMATOCRIT 49 % (40-54); HEMOGLOBIN 16.9 G/DL (13.3-17.7); LYMPHOCYTES # (AUTO) 1.1 X 10^3 (1.0-4.0); LYMPHOCYTES % (AUTO) 24 % (12-44); MEAN CORPUSCULAR HEMOGLOBIN 32 PG (25-34); MEAN CORPUSCULAR HGB CONC 35 G/DL (32-36); MEAN CORPUSCULAR VOLUME 91 FL (80-99); MEAN PLATELET VOLUME 9.9 FL (7.4-10.4); MONOCYTES # (AUTO) 0.5 X 10^3 (0.0-1.0); MONOCYTES % (AUTO) 11 % (0-12); NEUTROPHILS # (AUTO) 2.8 X 10^3 (1.8-7.8); NEUTROPHILS % (AUTO) 63 % (42-75); PLATELET COUNT 249 10^3/uL (130-400); RED CELL DISTRIBUTION WIDTH 13.9 % (10.0-14.5); WHITE BLOOD COUNT 4.5 10^3/uL (4.3-11.0)
[2018-12-08 18:19] LABS: PROTHROMBIN TIME PATIENT 13.4 SEC (12.2-14.7)
--- NOTE | 2018-12-08 18:20 | Diagnostic Imaging Report ---
PROCEDURE: CT head, face, and cervical spine without contrast. TECHNIQUE: Multiple contiguous axial images were obtained through the head, neck, and facial bones without the use of intravenous contrast. Sagittal and coronal reformations through the cervical spine and facial bones were also performed. Auto Exposure Controls were utilized during the CT exam to meet ALARA standards for radiation dose reduction. INDICATION: Head injury from a fall CT HEAD: The ventricles are normal in size, shape and position. There are no masses or hemorrhages. There are no extra-axial fluid collections. IMPRESSION: Negative CT head CT FACIAL BONES: The nasal bones appear to be intact. The orbital hensley and rims appear to be intact. Mandible is unremarkable. Zygomatic arches are intact. Paranasal sinuses clear. IMPRESSION: Negative CT facial bones CT cervical spine: Vertebral body height and alignment appear normal. Disc spaces are normal. There is no fracture or prevertebral soft tissue swelling. IMPRESSION: Negative CT cervical spine Dictated by: Dictated on workstation # [id number]
[2018-12-08 18:21] LABS: ACETAMINOPHEN < 10 UG/ML (10-30); ALANINE AMINOTRANSFERASE 97 U/L (0-55); ALBUMIN 4.3 GM/DL (3.2-4.5); ALKALINE PHOSPHATASE 93 U/L (40-136); AMYLASE 55 U/L (25-125); BILIRUBIN,TOTAL 0.4 MG/DL (0.1-1.0); CALCIUM 8.7 MG/DL (8.5-10.1); CARBON DIOXIDE 20 MMOL/L (21-32); CHLORIDE 104 MMOL/L (98-107); CREATINE KINASE 228 U/L (30-200); GLUCOSE 120 MG/DL (70-105); LIPASE 62 U/L (8-78); MAGNESIUM 2.3 MG/DL (1.6-2.4); POTASSIUM 3.5 MMOL/L (3.6-5.0); SODIUM 141 MMOL/L (135-145); TOTAL PROTEIN 7.1 GM/DL (6.4-8.2)
--- NOTE | 2018-12-08 18:26 | Diagnostic Imaging Report ---
CLINICAL INDICATION: Patient is status post fall. Patient states he has been drinking today. EXAM: X-ray of the pelvis, AP view. COMPARISON: None. FINDINGS: There is no acute fracture or dislocation. There is no significant bone or joint abnormality. Likely phleboliths seen in the right pelvis region. Sacroiliac joints, sacrum, and visualized lower lumbar spine are unremarkable. IMPRESSION: Unremarkable x-ray of the pelvis with no acute fracture or dislocation. Dictated by: Dictated on workstation # [id number]
[2018-12-08 18:27] LABS: CREATINE KINASE MB 1.3 NG/ML (<6.6)
--- NOTE | 2018-12-08 18:32 | Diagnostic Imaging Report ---
CLINICAL INDICATION: Patient is status post fall. Patient states he has been drinking in the day. EXAM: Portable chest x-ray upright view. COMPARISONS: Chest x-ray dated 08/16/2016. FINDINGS: Lungs/pleura: Lungs are clear. There is no pneumothorax. There is no pleural effusion. Mediastinum: Unremarkable. Pulmonary vasculature: Unremarkable. Heart: Unremarkable. Bones/extrathoracic soft tissue: Unremarkable. IMPRESSION: There is no radiographic evidence of acute cardiopulmonary process or traumatic finding. Dictated by: Dictated on workstation # [id number]
[2018-12-08 19:10] LABS: BUN/CREATININE RATIO 9; CREATININE SERUM 0.92 MG/DL (0.60-1.30); GFR ESTIMATED > 60
[2018-12-08 19:48] LABS: BILIRUBIN,URINE NEGATIVE (NEGATIVE); CLARITY,URINE CLEAR; COLOR,URINE YELLOW; GLUCOSE, URINE (UA) NEGATIVE (NEGATIVE); KETONES,URINE 1+ (NEGATIVE); LEUKOCYTE ESTERASE ,URINE NEGATIVE (NEGATIVE); NITRITE,URINE NEGATIVE (NEGATIVE); PH,URINE 6.5 (5-9); PROTEIN,URINE 2+ (NEGATIVE)
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
[2018-12-08 19:56] LABS: BACTERIA,URINE NEGATIVE /HPF; SQUAMOUS EPITHELIAL CELL,UR 0-2 /HPF
[2018-12-08 20:01] LABS: AMPHETAMINE SCREEN, URINE NEGATIVE (NEGATIVE); BARBITURATE SCREEN URINE NEGATIVE (NEGATIVE); BENZODIAZEPINES SCREEN URINE NEGATIVE (NEGATIVE); CANNABINOID SCREEN, URINE POSITIVE (NEGATIVE); COCAINE SCREEN URINE NEGATIVE (NEGATIVE); METHADONE STAT NEGATIVE (NEGATIVE); METHAMPHETAMINE SCREEN URINE S NEGATIVE (NEGATIVE); OPIATE SCREEN URINE NEGATIVE (NEGATIVE); OXYCODONE STAT NEGATIVE (NEGATIVE); PROPOXYPHENE STAT NEGATIVE (NEGATIVE); TRICYCLIC ANTIDEPRESSANTS SCRE NEGATIVE (NEGATIVE)
[2018-12-08 20:33] VITALS: BP 144/98
== END 2018-12-08 20:40 | disposition home or self-care (01) ==
LOC: ER 17:39 → EDUNIT# 17:39 → ER 20:40
DX: F10.129 Alcohol abuse with intoxication, unspecified (principal); G40.909 Epilepsy, unspecified, not intractable, without status epilepticus; F41.9 Anxiety disorder, unspecified; F31.9 Bipolar disorder, unspecified; Z91.5 Personal history of self-harm
CPT/HCPCS: 36415; 70450; 70486; 71045; 72125; 72170; 80053; 80306; 80320; 80329; 81000; 82150; 82550; 82553; 83690; 83735; 83874; 85025; 85610; 85730; 93005; 93041

== ENCOUNTER 2019-05-20 21:04 | Observation (INO) | payer SELFPAY ==
[~2019-05-20] VITALS: Ht 185.4 cm; Wt 92.2 kg
[~2019-05-20 21:04] MED LIST changes: -IBUP-2055 PO; +IBUP-2473 PO
[2019-05-20] MEDS ORDERED: LACTATED RINGERS 1,000 ML IV ONE ×2 (21:24→23:29)
[2019-05-20] MEDS ORDERED: TETANUS,DIPTH,PERTUSS P/F (BOOSTRIX) 0.5 ML VIAL IM ONE (21:30)
[2019-05-20] MEDS ORDERED: ONDANSETRON 4 MG/2 ML (SDV) Z0FRAN IVP ONE (21:30)
[2019-05-20] MEDS ORDERED: FAMOTIDINE 20MG/2ML IV (PEPCID) IVP ONE (21:30)
[2019-05-20 21:32] LABS: BASOPHILS # (AUTO) 0.1 10^3/uL (0.0-0.1); BASOPHILS % (AUTO) 1 % (0-10); EOSINOPHILS # (AUTO) 0.2 10^3/uL (0.0-0.3); EOSINOPHILS % (AUTO) 2 % (0-10); HEMATOCRIT 46 % (40-54); HEMOGLOBIN 15.6 G/DL (13.3-17.7); LYMPHOCYTES # (AUTO) 2.9 X 10^3 (1.0-4.0); LYMPHOCYTES % (AUTO) 31 % (12-44); MEAN CORPUSCULAR HEMOGLOBIN 32 PG (25-34); MEAN CORPUSCULAR HGB CONC 34 G/DL (32-36); MEAN CORPUSCULAR VOLUME 93 FL (80-99); MONOCYTES # (AUTO) 0.5 X 10^3 (0.0-1.0); MONOCYTES % (AUTO) 6 % (0-12); NEUTROPHILS # (AUTO) 5.9 X 10^3 (1.8-7.8); NEUTROPHILS % (AUTO) 61 % (42-75); PLATELET COUNT 258 10^3/uL (130-400); RED CELL DISTRIBUTION WIDTH 12.5 % (10.0-14.5); WHITE BLOOD COUNT 9.6 10^3/uL (4.3-11.0)
[2019-05-20 21:42] LABS: ALANINE AMINOTRANSFERASE 19 U/L (0-55); ALBUMIN 4.4 GM/DL (3.2-4.5); ALKALINE PHOSPHATASE 68 U/L (40-136); BILIRUBIN,TOTAL 0.2 MG/DL (0.1-1.0); BUN/CREATININE RATIO 9; CALCIUM 8.6 MG/DL (8.5-10.1); CARBON DIOXIDE 22 MMOL/L (21-32); CHLORIDE 110 MMOL/L (98-107); CREATININE SERUM 0.99 MG/DL (0.60-1.30); GFR ESTIMATED > 60; GLUCOSE 100 MG/DL (70-105); POTASSIUM 3.3 MMOL/L (3.6-5.0); SODIUM 144 MMOL/L (135-145); TOTAL PROTEIN 6.9 GM/DL (6.4-8.2)
--- NOTE | 2019-05-20 22:06 | Diagnostic Imaging Report ---
PROCEDURE: CT head and CT cervical spine without contrast. TECHNIQUE: Multiple contiguous axial images were obtained through the brain and cervical spine without the use of intravenous contrast. Sagittal and coronal reformations through the cervical spine were then performed. Auto Exposure Controls were utilized during the CT exam to meet ALARA standards for radiation dose reduction. INDICATION: Fall. Laceration to the back of the head. Alcohol intoxication. Neck pain. COMPARISON: 12/08/2018. FINDINGS: CT head: The ventricles and cortical sulci are age-appropriate. There is no midline shift or mass-effect. No acute intracranial hemorrhage is seen. There is no CT evidence of acute territorial ischemia. No focal masses or collections are present. The calvarium is intact. A scalp laceration is seen overlying the right parietal region. Frothy secretions are seen in the right maxillary sinus. A right-sided blowout fracture is seen. There is displacement of orbital fat through the fracture defect without entrapment of the right inferior rectus muscle. CT cervical spine: No acute fracture or dislocation is seen in the cervical spine. No focal osseous lesions. Vertebral body heights are well-maintained. The craniocervical junction is well-maintained. Mild degenerative changes are seen in the cervical spine with disc osteophyte complexes and uncovertebral arthropathy. Soft tissues of the neck are unremarkable. IMPRESSION: 1. No hemorrhage or focal intra-axial mass. No CT evidence of large acute territorial ischemia. 2. No acute fracture or dislocation in the cervical spine. 3. Acute right-sided blowout fracture with displacement of orbital fat through the fracture defect. No evidence of right inferior rectus muscle entrapment is seen. Associated hemorrhage is seen in the right maxillary sinus. 4. Scalp laceration overlying the right parietal region. Findings were discussed with Dr. Ward at 10:00 PM on 05/20/[address] Giuliano Lopez. Dictated by: Dictated on workstation # [id number]
[2019-05-20] MEDS ORDERED: PROMETHAZINE INJ 25 MG/ML (PHENERGAN) AMP IVP ONE (22:45)
[2019-05-20] MEDS ORDERED: ceFAZolin 2 GM IV Premixed 50 ML IV ONE (22:45)
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
[2019-05-20 23:36] VITALS: BP 117/85
[2019-05-20 23:45] VITALS: BP 127/80
[2019-05-20] MEDS ORDERED: PROMETHAZINE INJ 25 MG/ML (PHENERGAN) AMP IV PRN (23:45)
[2019-05-20] MEDS ORDERED: IBUPROFEN 600 MG (MOTRIN) TAB PO PRN (23:45)
[2019-05-20] MEDS ORDERED: ONDANSETRON 4 MG/2 ML (SDV) Z0FRAN IV PRN (23:45)
[2019-05-20] MEDS ORDERED: ACETAMINOPHEN 500 MG TAB (TYLENOL) PO PRN (23:45)
[2019-05-20] MEDS: LACTATED RINGERS 1,000 ML IV SCH (23:53)
[2019-05-21] VITALS (23 sets, daily range): BP systolic 103–131; BP diastolic 71–91
[2019-05-21] MEDS ORDERED: 1/2 NS IV SOLUTION 1,000 ML IV PRN (00:20)
[2019-05-21] MEDS ORDERED: LORazepam INJ 2 MG/ML (ATIVAN) VIAL IM/IV PRN (00:30)
[2019-05-21] MEDS ORDERED: ANTACID SUSP 30 ML UDC (MYLANTA) PO PRN (00:30)
[2019-05-21] MEDS ORDERED: D5 1/2 NS 1000 ML IV SOLUTION 1,000 ML IV PRN (00:30)
[2019-05-21] MEDS ORDERED: ONDANSETRON 4 MG (ZOFRAN) ORAL DISSOLVE TAB SL PRN (00:30)
[2019-05-21] MEDS ORDERED: SENNA W/DOCUSATE (SENOKOT S) TABLET PO PRN (00:30)
[2019-05-21] MEDS ORDERED: LORazepam 1 MG (ATIVAN) TAB PO PRN (00:30)
[2019-05-21] MEDS ORDERED: LORazepam INJ 2 MG/ML (ATIVAN) VIAL IV PRN (00:30)
[2019-05-21] MEDS ORDERED: ONDANSETRON 4 MG/2 ML (SDV) Z0FRAN IV PRN (00:30)
[2019-05-21 03:37] LABS: BASOPHILS % (AUTO) 0 % (0-10); EOSINOPHILS # (AUTO) 0.1 10^3/uL (0.0-0.3); EOSINOPHILS % (AUTO) 1 % (0-10); HEMATOCRIT 46 % (40-54); HEMOGLOBIN 15.4 G/DL (13.3-17.7); LYMPHOCYTES # (AUTO) 1.7 X 10^3 (1.0-4.0); LYMPHOCYTES % (AUTO) 18 % (12-44); MEAN CORPUSCULAR HEMOGLOBIN 31 PG (25-34); MEAN CORPUSCULAR HGB CONC 34 G/DL (32-36); MEAN CORPUSCULAR VOLUME 93 FL (80-99); MEAN PLATELET VOLUME 10.8 FL (7.4-10.4); MONOCYTES # (AUTO) 0.5 X 10^3 (0.0-1.0); MONOCYTES % (AUTO) 5 % (0-12); NEUTROPHILS # (AUTO) 7.5 X 10^3 (1.8-7.8); NEUTROPHILS % (AUTO) 77 % (42-75); PLATELET COUNT 253 10^3/uL (130-400); RED CELL DISTRIBUTION WIDTH 12.5 % (10.0-14.5); WHITE BLOOD COUNT 9.7 10^3/uL (4.3-11.0)
[2019-05-21 03:54] LABS: ALANINE AMINOTRANSFERASE 19 U/L (0-55); ALBUMIN 4.3 GM/DL (3.2-4.5); ALKALINE PHOSPHATASE 65 U/L (40-136); BILIRUBIN,TOTAL 0.2 MG/DL (0.1-1.0); BUN/CREATININE RATIO 10; CALCIUM 8.5 MG/DL (8.5-10.1); CARBON DIOXIDE 21 MMOL/L (21-32); CHLORIDE 111 MMOL/L (98-107); CREATININE SERUM 0.86 MG/DL (0.60-1.30); GFR ESTIMATED > 60; GLUCOSE 103 MG/DL (70-105); PHOSPHORUS 3.1 MG/DL (2.3-4.7); POTASSIUM 3.7 MMOL/L (3.6-5.0); SODIUM 144 MMOL/L (135-145); TOTAL PROTEIN 6.8 GM/DL (6.4-8.2)
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
[2019-05-21] MEDS ORDERED: MULTIVIT W/MINERALS TAB (THERAGRAN M) PO SCH (07:00)
[2019-05-21] MEDS ORDERED: THIAMINE 100 MG (VITAMIN B-1) TAB PO SCH (07:00)
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
[2019-05-21] MEDS: CEPHALEXIN 250 MG (KEFLEX) CAP PO SCH ×2 (08:38→14:15)
[2019-05-21] MEDS: LACTATED RINGERS 1,000 ML IV SCH (08:39)
[2019-05-21] MEDS ORDERED: FOLIC ACID 1 MG TAB PO SCH (09:00)
[2019-05-21] MEDS ORDERED: FAMOTIDINE 20MG/2ML IV (PEPCID) IV SCH (09:00)
[2019-05-21] MEDS ORDERED: MAGNESIUM OXIDE (MAG-OX)400 MG TAB PO SCH (09:00)
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
[2019-05-21] MEDS ORDERED: SERT100T8 PO (11:44)
[2019-05-21] MEDS ORDERED: IBUP-2473 PO (12:02)
[2019-05-21] MEDS ORDERED: MULT-192 PO (12:02)
--- NOTE | 2019-05-21 12:03 | NUR ---
SPOKE WITH THE PT AND CALLED [facility] TO COMPLETE THE MED REC THE FOLLOWING ARE FILL DATES: 04-19-2019 SERTRALINE 100MG #30/30DS 05-15-2019 KEPPRA 500MG #120/30DS OTC MEDS: MTV GUMMY IBUPROFEN
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
[2019-05-21 13:18] LABS: BILIRUBIN,URINE NEGATIVE (NEGATIVE); CLARITY,URINE CLEAR; COLOR,URINE YELLOW; GLUCOSE, URINE (UA) NEGATIVE (NEGATIVE); KETONES,URINE NEGATIVE (NEGATIVE); LEUKOCYTE ESTERASE ,URINE NEGATIVE (NEGATIVE); NITRITE,URINE NEGATIVE (NEGATIVE); PROTEIN,URINE NEGATIVE (NEGATIVE)
[2019-05-21 13:26] LABS: BACTERIA,URINE NEGATIVE /HPF
[2019-05-21 13:27] LABS: BENZODIAZEPINES SCREEN URINE POSITIVE (NEGATIVE)
[2019-05-21 13:28] LABS: AMPHETAMINE SCREEN, URINE NEGATIVE (NEGATIVE); BARBITURATE SCREEN URINE NEGATIVE (NEGATIVE); CANNABINOID SCREEN, URINE POSITIVE (NEGATIVE); COCAINE SCREEN URINE NEGATIVE (NEGATIVE); METHADONE STAT NEGATIVE (NEGATIVE); METHAMPHETAMINE SCREEN URINE S NEGATIVE (NEGATIVE); OPIATE SCREEN URINE NEGATIVE (NEGATIVE); OXYCODONE STAT NEGATIVE (NEGATIVE); PROPOXYPHENE STAT NEGATIVE (NEGATIVE); TRICYCLIC ANTIDEPRESSANTS SCRE NEGATIVE (NEGATIVE)
--- NOTE | 2019-05-21 15:00 | NUR ---
received report from lili rooney, this rn to assume care of pt for remainder of shift.
[2019-05-21] MEDS ORDERED: HYDR-4227 PO (15:49)
--- NOTE | 2019-05-21 15:50 | Discharge Inst-Surgical ---
D/C Lap Instructions-KIDO Reconcile Patient Problems Problems Reviewed?: Yes New, Converted, or Re-Newed RX: RX on Chart Follow Up Appt in 2 weeks Activity as tolerated No driving for 24 hours No driving while on pain medications Regular Diet Symptoms to Report: Fever over 101 degree F, Nausea/Vomiting Infection Signs and Symptoms to report: Increased redness, Foul odor of wound, Increased drainage Bathing instructions: May shower Operative Area Clean/Dry; Keep incision clean/dry If any problems/questions: Contact your physician or go to Emergency Room LACY CRAIG APRN May 21, 2019 15:50
[2019-05-21] MEDS ORDERED: HYDROcodone/APAP 7.5 MG/325 MG (LORTAB, LORCET PLUS) TABLET PO NR (16:00)
--- NOTE | 2019-05-21 16:57 | NUR ---
OLESYA TODD demonstrates understanding of discharge instructions and accurately returns instructions upon questioning. Copy of Post-Discharge Instructions and Medication Discharge Instructions given to pt. OLESYA TODD is able to manage continuing needs after discharge. Patients belongings returned to pt. Skin dry and intact; no breakdown noted. Patient discharged from [facility] on 05/21/19 at 1657. OLESYA TODD left floor via wc, accompanied by staff.
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
[2019-05-21] MEDS ORDERED: LEVETIRACETAM 500 MG (KEPPRA) TAB PO SCH (21:00)
[2019-05-21] MEDS ORDERED: FAMOTIDINE 20 MG (PEPCID) TABLET PO SCH (21:00)
[2019-05-22] MEDS ORDERED: SERTRALINE 100 MG (ZOLOFT) TAB PO SCH (09:00)
== END 2019-05-21 15:50 | disposition home or self-care (01) ==
LOC: EDUNIT# 21:04 → ER 21:05 → ICU 22:56 → UNDOADMOB 22:56 → ICU 23:30 → UNDODISOB 05-21 16:57
PROVIDERS: ADMIT Internal Medicine; ATTEND Family Medicine
DX: S02.31XA Fracture of orbital floor, right side, initial encounter for closed fracture (principal); S01.01XA Laceration without foreign body of scalp, initial encounter; F10.220 Alcohol dependence with intoxication, uncomplicated; F17.210 Nicotine dependence, cigarettes, uncomplicated; F12.10 Cannabis abuse, uncomplicated; F41.9 Anxiety disorder, unspecified; F32.9 Major depressive disorder, single episode, unspecified; Z91.5 Personal history of self-harm; Z23 Encounter for immunization; X58.XXXA Exposure to other specified factors, initial encounter; Y92.410 Unspecified street and highway as the place of occurrence of the external cause
CPT/HCPCS: 36415; 70450; 71045; 72125; 80053; 80306; 80320; 81000; 83735; 84100; 85025; 86141; 87081; 90715

== ENCOUNTER 2019-05-29 11:05 | Emergency (ER) | payer SELFPAY ==
[~2019-05-29] VITALS: Ht 182.8 cm; Wt 90.7 kg
[~2019-05-29 11:05] MED LIST changes: +HYDR-4227 PO; +MULT-192 PO; +SERT100T8 PO
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
[2019-05-29] MEDS ORDERED: NAPR-1071 PO (11:26)
--- NOTE | 2019-05-29 12:04 | Diagnostic Imaging Report ---
INDICATION: Recent head injury. Posterior headache. TECHNIQUE: Routine non contrast-enhanced axial images were obtained from the skull base to the vertex. Auto Exposure Controls were utilized during the CT exam to meet ALARA standards for radiation dose reduction COMPARISON: 05/20/2019 FINDINGS: The ventricles and cortical sulci are normal in size and contour. There is no midline shift or mass-effect. No acute intra-axial hemorrhage is seen. There are no abnormal areas of increased or decreased density to suggest acute hemorrhage or edema. No extra-axial masses or collections are present. Soft tissue hematoma posteriorly on the right is again identified, but is diminished in size and compared to prior exam. Underlying bony calvarium is intact. The visualized paranasal sinuses are unremarkable. The mastoid air cells are clear. IMPRESSION: 1. No acute intracranial abnormality. No CT evidence of mass, acute infarct or intracranial hemorrhage. Dictated by: Dictated on workstation # [id number]
[2019-05-29] MEDS ORDERED: KETOROLAC 60 MG/2 ML VIAL IM ONE (12:15)
[2019-05-29 12:29] VITALS: BP 132/88
== END 2019-05-29 12:29 | disposition home or self-care (01) ==
LOC: EDUNIT# 11:05 → ER 11:06
DX: S06.0X0A Concussion without loss of consciousness, initial encounter (principal); G40.909 Epilepsy, unspecified, not intractable, without status epilepticus; F31.9 Bipolar disorder, unspecified; F32.9 Major depressive disorder, single episode, unspecified; F17.210 Nicotine dependence, cigarettes, uncomplicated; X58.XXXA Exposure to other specified factors, initial encounter
CPT/HCPCS: 70450; 96372

== ENCOUNTER 2019-06-13 10:30 | Emergency (ER) | payer SELFPAY ==
[~2019-06-13] VITALS: Ht 182.8 cm; Wt 94.7 kg
[~2019-06-13 10:30] MED LIST changes: +NAPR-1071 PO
[2019-06-13] MEDS ORDERED: HYDROcodone/APAP 5 MG/325 MG (LORTAB) TAB PO ONE (10:45)
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
[2019-06-13 10:56] VITALS: BP 147/114
== END 2019-06-13 10:57 | disposition home or self-care (01) ==
LOC: EDUNIT# 10:30 → ER 10:31
DX: K08.89 Other specified disorders of teeth and supporting structures (principal)
CPT/HCPCS: 99283

== ENCOUNTER 2019-06-25 16:22 | Emergency (ER) | payer SELFPAY ==
[~2019-06-25] VITALS: Ht 172 cm; Wt 94.7 kg
[2019-06-25 16:31] VITALS: BP 141/99
[2019-06-25] MEDS ORDERED: THIAMINE INJECTION 100 MG, FOLIC ACID INJECTION 1 MG, VITAMIN MULTI INJECTION 10 ML, MA... IV STA ×5 (16:41)
[2019-06-25] MEDS ORDERED: LACTATED RINGERS 1,000 ML IV ONE (16:41)
[2019-06-25] MEDS ORDERED: LEVETIRACETAM INJECTION 500 MG in NS (IVPB) 100 ML IV STA (16:47)
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
[2019-06-25 16:57] LABS: BASOPHILS # (AUTO) 0.1 10^3/uL (0.0-0.1); BASOPHILS % (AUTO) 2 % (0-10); EOSINOPHILS # (AUTO) 0.1 10^3/uL (0.0-0.3); EOSINOPHILS % (AUTO) 1 % (0-10); HEMATOCRIT 49 % (40-54); HEMOGLOBIN 17.1 G/DL (13.3-17.7); LYMPHOCYTES # (AUTO) 1.2 X 10^3 (1.0-4.0); LYMPHOCYTES % (AUTO) 30 % (12-44); MEAN CORPUSCULAR HEMOGLOBIN 31 PG (25-34); MEAN CORPUSCULAR HGB CONC 35 G/DL (32-36); MEAN CORPUSCULAR VOLUME 89 FL (80-99); MEAN PLATELET VOLUME 9.9 FL (7.4-10.4); MONOCYTES # (AUTO) 0.6 X 10^3 (0.0-1.0); MONOCYTES % (AUTO) 14 % (0-12); NEUTROPHILS # (AUTO) 2.1 X 10^3 (1.8-7.8); NEUTROPHILS % (AUTO) 53 % (42-75); PLATELET COUNT 241 10^3/uL (130-400); RED CELL DISTRIBUTION WIDTH 13.3 % (10.0-14.5); WHITE BLOOD COUNT 3.9 10^3/uL (4.3-11.0)
[2019-06-25 16:58] LABS: BILIRUBIN,URINE NEGATIVE (NEGATIVE); CLARITY,URINE SL CLOUDY; COLOR,URINE YELLOW; GLUCOSE, URINE (UA) NEGATIVE (NEGATIVE); KETONES,URINE NEGATIVE (NEGATIVE); LEUKOCYTE ESTERASE ,URINE NEGATIVE (NEGATIVE); NITRITE,URINE NEGATIVE (NEGATIVE); PH,URINE 6.5 (5-9); PROTEIN,URINE 1+ (NEGATIVE)
[2019-06-25 17:09] LABS: ALBUMIN 4.4 GM/DL (3.2-4.5); CHLORIDE 106 MMOL/L (98-107); POTASSIUM 3.4 MMOL/L (3.6-5.0); SODIUM 143 MMOL/L (135-145)
[2019-06-25 17:10] LABS: CALCIUM 8.2 MG/DL (8.5-10.1)
[2019-06-25 17:11] LABS: GLUCOSE 117 MG/DL (70-105)
[2019-06-25 17:12] LABS: CARBON DIOXIDE 20 MMOL/L (21-32); TOTAL PROTEIN 7.4 GM/DL (6.4-8.2)
[2019-06-25 17:13] LABS: BILIRUBIN,TOTAL 0.4 MG/DL (0.1-1.0)
[2019-06-25 17:15] LABS: ALKALINE PHOSPHATASE 96 U/L (40-136); GFR ESTIMATED > 60
[2019-06-25] MEDS ORDERED: KETOROLAC 30 MG/ML VIAL IVP ONE (17:15)
[2019-06-25 17:17] LABS: ACETAMINOPHEN < 10 UG/ML (10-30); BUN/CREATININE RATIO 11
[2019-06-25 17:18] LABS: ALANINE AMINOTRANSFERASE 68 U/L (0-55); MAGNESIUM 2.2 MG/DL (1.6-2.4); SALICYLATE < 5.0 MG/DL (5.0-20.0)
[2019-06-25 17:25] LABS: AMORPHOUS SEDIMENT,UR LARGE AMOR URATES /LPF; BACTERIA,URINE TRACE /HPF; WBC,URINE 0-2 /HPF
[2019-06-25 17:27] LABS: AMPHETAMINE SCREEN, URINE NEGATIVE (NEGATIVE); BARBITURATE SCREEN URINE NEGATIVE (NEGATIVE); BENZODIAZEPINES SCREEN URINE POSITIVE (NEGATIVE); CANNABINOID SCREEN, URINE POSITIVE (NEGATIVE); COCAINE SCREEN URINE NEGATIVE (NEGATIVE); METHADONE STAT NEGATIVE (NEGATIVE); METHAMPHETAMINE SCREEN URINE S NEGATIVE (NEGATIVE); OPIATE SCREEN URINE NEGATIVE (NEGATIVE); OXYCODONE STAT NEGATIVE (NEGATIVE); PROPOXYPHENE STAT NEGATIVE (NEGATIVE); TRICYCLIC ANTIDEPRESSANTS SCRE NEGATIVE (NEGATIVE)
[2019-06-25] MEDS ORDERED: D5 1/2 NS W/KCL 20 MEQ/L 1,000 ML IV SCH (19:30)
[2019-06-25] MEDS ORDERED: CALCIUM GLUC. 10% 4.65 MEQ/10 ML VIAL IV ONE (19:30)
--- NOTE | 2019-06-25 20:50 | NUR ---
Pt walked out of room to nursing station, states " I need my clothes, I'm signing myself out."
== END 2019-06-25 20:52 | disposition left against medical advice (07) ==
LOC: EDUNIT# 16:22 → ER 16:23
DX: F10.229 Alcohol dependence with intoxication, unspecified (principal); G40.909 Epilepsy, unspecified, not intractable, without status epilepticus; F41.9 Anxiety disorder, unspecified; F31.9 Bipolar disorder, unspecified; F17.210 Nicotine dependence, cigarettes, uncomplicated
CPT/HCPCS: 36415; 80053; 80306; 80320; 80329; 81000; 83735; 85025; 93005; 93041

== ENCOUNTER 2019-07-30 07:49 | Inpatient (IN) | payer SELFPAY ==
[~2019-07-30] VITALS: Ht 182.8 cm; Wt 100.0 kg
[2019-07-30] MEDS ORDERED: LACTATED RINGERS 1,000 ML IV ONE ×2 (08:32→08:34)
[2019-07-30] MEDS ORDERED: LORazepam INJ 2 MG/ML (ATIVAN) VIAL ONE ×2 (08:42→11:03)
[2019-07-30 08:54] LABS: BASOPHILS # (AUTO) 0.1 10^3/uL (0.0-0.1); BASOPHILS % (AUTO) 2 % (0-10); EOSINOPHILS % (AUTO) 1 % (0-10); HEMATOCRIT 47 % (40-54); HEMOGLOBIN 16.4 G/DL (13.3-17.7); LYMPHOCYTES # (AUTO) 0.4 X 10^3 (1.0-4.0); LYMPHOCYTES % (AUTO) 17 % (12-44); MEAN CORPUSCULAR HEMOGLOBIN 32 PG (25-34); MEAN CORPUSCULAR HGB CONC 35 G/DL (32-36); MEAN CORPUSCULAR VOLUME 91 FL (80-99); MEAN PLATELET VOLUME 10.1 FL (7.4-10.4); MONOCYTES # (AUTO) 0.3 X 10^3 (0.0-1.0); MONOCYTES % (AUTO) 15 % (0-12); NEUTROPHILS # (AUTO) 1.5 X 10^3 (1.8-7.8); NEUTROPHILS % (AUTO) 65 % (42-75); PLATELET COUNT 125 10^3/uL (130-400); RED CELL DISTRIBUTION WIDTH 14.8 % (10.0-14.5); WHITE BLOOD COUNT 2.3 10^3/uL (4.3-11.0)
[2019-07-30 08:57] LABS: CLARITY,URINE CLEAR; COLOR,URINE ORANGE; GLUCOSE, URINE (UA) TRACE (NEGATIVE); KETONES,URINE TRACE (NEGATIVE); LEUKOCYTE ESTERASE ,URINE NEGATIVE (NEGATIVE); NITRITE,URINE NEGATIVE (NEGATIVE); PROTEIN,URINE 2+ (NEGATIVE)
--- NOTE | 2019-07-30 08:59 | ED Psychosocial ---
General Chief Complaint: Substance Abuse Stated Complaint: ALCOHOL DETOX;COUGH Source: patient Exam Limitations: no limitations History of Present Illness Date Seen by Provider: Jul 30, 2019 Time Seen by Provider: 08:37 Initial Comments Here with report of alcohol abuse and suicidal ideation. Daniela is a long-term alcoholic and he can't take it anymore. This has caused thoughts of suicide but he did not indicate a plan. Also reports that he's had fever, chills, coughing and body aches and is concerned about COVID-19 infection. Doesn't have a known exposure though. Reports vomiting and diarrhea as well. Admits to drinking a fifth or more of vodka daily. Last drink was yesterday. Arrives shaking and appears weak. Timing/Duration: week, getting worse Severity: moderate, severe Associated Symptoms: anxiety, suicidal ideation Allergies and Home Medications Allergies Coded Allergies: shellfish derived (Unverified Allergy, Mild, RASH, 07/25/12) STATES " ITCHY THROAT, AND FACES GETS RED" Home Medications Hydrocodone/Acetaminophen 1 Each Tablet, 1-2 TAB PO Q4H Prescribed by: LACY CRAIG on 05/21/19 1549 Ibuprofen 200 Mg Tablet, 600-800 MG PO Q8H PRN for PAIN-MILD (1-4), (Reported) Levetiracetam 500 Mg Tablet, 1,000 MG PO BID, (Reported) TAKES 2 (500MG) TABLETS Multivitamin 1 Each Tab.chew, 2 EACH PO DAILY, (Reported) Naproxen 500 Mg Tablet, 500 MG PO BID PRN for headache Prescribed by: GUILLERMINA ELIZONDO on 05/29/19 1126 Sertraline HCl 100 Mg Tablet, 100 MG PO DAILY, (Reported) Patient Home Medication List Home Medication List Reviewed: Yes Review of Systems Constitutional: see HPI, chills, fever, weakness EENTM: nose congestion, throat pain (dose OxyContin and prescription for T and give him a dose today yet and I does need to make sure verify what his dose to) Respiratory: cough, short of breath Cardiovascular: No chest pain, No edema Gastrointestinal: abdominal pain, diarrhea, nausea, vomiting Genitourinary: no symptoms reported (bring sample is declining pelvic) Musculoskeletal: No back pain; muscle pain; No neck pain Skin: no symptoms reported Psychiatric/Neurological: Anxiety, Depressed, Emotional Problems All Other Systems Reviewed Negative Unless Noted: Yes Past Arcdeav-Jddxuz-Qlvski Hx Past Med/Social Hx: Reviewed Nursing Past Med/Soc Hx Patient Social History Alcohol Use: Regular Use Alcohol Beverage of Choice: Beer, Vodka Drug of Choice: THC NOW, LSD, AND "EVERYTHING YOU CAN THINK OF" IN THE PAST. DENIES IV USE Smoking Status: Current Everyday Smoker (going to 10. Physically be urine is a couple) Type Used: Cigarettes 2nd Hand Smoke Exposure: Yes Recent Hopitalizations: No Immunizations Up To Date Tetanus Booster (TDap): Less than 5yrs PED Vaccines UTD: No Seasonal Allergies Seasonal Allergies: No Past Medical History Surgeries: Yes (FACIAL RECONSTRUCTION/JAW FRACTURE REPAIR) Respiratory: No Currently Using CPAP: No Currently Using BIPAP: No Cardiac: No Neurological: Yes (ALCOHOL-WITHDRAWL SEIZURES) Seizure Disorder Reproductive Disorders: No Sexually Transmitted Disease: No HIV/AIDS: No Genitourinary: No Gastrointestinal: No Musculoskeletal: Yes (JAW/FACIAL FRACTURE) Fractures Endocrine: No HEENT: Yes (JAW/FACIAL FRACTURE) Cancer: No Psychosocial: Yes Anxiety, Suicide Attempts, Bipolar, Depression Integumentary: No Blood Disorders: No Adverse Reaction/Blood Tranf: No Family Medical History Reviewed Nursing Family Hx No Pertinent Family Hx Physical Exam Vital Signs - First Documented 07/30/19 08:21 Temp 37.4 Pulse 101 Resp 18 B/P (MAP) 142/103 (116) Pulse Ox 99 O2 Delivery Room Air Capillary Refill : Height, Weight, BMI Height: 6'0" Weight: 205lbs. 2.0oz. 93.178488ol; 32.00 BMI Method:Stated General Appearance: WD/WN, no apparent distress HEENT: PERRL/EOMI, pharynx normal Neck: full range of motion, supple Respiratory: lungs clear, normal breath sounds Cardiovascular: no murmur, tachycardia Peripheral Pulses: 2+ Dorsalis Pedis (R), 2+ Left Dors-Pedis (L), 2+ Radial Pulses (R), 2+ Radial Pulses (L) Gastrointestinal: non tender, soft Extremities: non-tender, normal inspection Neurologic/Psychiatric: alert, oriented x 3, other (tremors noted) Appearance/Memory: appropriate insight, disheveled Behavior/Eye Contact: good eye contact, normal speech Thoughts/Hallucinations: normal thought pattern, no apparent hallucination Skin: normal color, warm/dry Procedures/Interventions Suture Size: 4-0 Progress/Results/Core Measures Results/Orders Lab Results Laboratory Tests Test 07/30/19 08:15 07/30/19 08:30 07/30/19 08:42 Range/Units Urine Opiates Screen POSITIVE H NEGATIVE Urine Oxycodone Screen NEGATIVE NEGATIVE Urine Methadone Screen NEGATIVE NEGATIVE Urine Propoxyphene Screen NEGATIVE NEGATIVE Urine Barbiturates Screen NEGATIVE NEGATIVE Ur Tricyclic Antidepressants Screen NEGATIVE NEGATIVE Urine Phencyclidine Screen NEGATIVE NEGATIVE Urine Amphetamines Screen NEGATIVE NEGATIVE Urine Methamphetamines Screen POSITIVE H NEGATIVE Urine Benzodiazepines Screen NEGATIVE NEGATIVE Urine Cocaine Screen NEGATIVE NEGATIVE Urine Cannabinoids Screen POSITIVE H NEGATIVE White Blood Count 2.3 L 4.3-11.0 10^3/uL Red Blood Count 5.09 4.35-5.85 10^6/uL Hemoglobin 16.4 13.3-17.7 G/DL Hematocrit 47 40-54 % Mean Corpuscular Volume 91 80-99 FL Mean Corpuscular Hemoglobin 32 25-34 PG Mean Corpuscular Hemoglobin Concent 35 32-36 G/DL Red Cell Distribution Width 14.8 H 10.0-14.5 % Platelet Count 125 L 130-400 10^3/uL Mean Platelet Volume 10.1 7.4-10.4 FL Neutrophils (%) (Auto) 65 42-75 % Lymphocytes (%) (Auto) 17 12-44 % Monocytes (%) (Auto) 15 H 0-12 % Eosinophils (%) (Auto) 1 0-10 % Basophils (%) (Auto) 2 0-10 % Neutrophils # (Auto) 1.5 L 1.8-7.8 X 10^3 Lymphocytes # (Auto) 0.4 L 1.0-4.0 X 10^3 Monocytes # (Auto) 0.3 0.0-1.0 X 10^3 Eosinophils # (Auto) 0.0 0.0-0.3 10^3/uL Basophils # (Auto) 0.1 0.0-0.1 10^3/uL Erythrocyte Sedimentation Rate 1 0-15 MM/HR D-Dimer 0.84 H 0.00-0.49 UG/ML Sodium Level 136 135-145 MMOL/L Potassium Level 3.2 L 3.6-5.0 MMOL/L Chloride Level 98 98-107 MMOL/L Carbon Dioxide Level 20 L 21-32 MMOL/L Anion Gap 18 H 5-14 MMOL/L Blood Urea Nitrogen 4 L 7-18 MG/DL Creatinine 1.17 0.60-1.30 MG/DL Estimat Glomerular Filtration Rate > 60 BUN/Creatinine Ratio 3 Glucose Level 120 H 70-105 MG/DL Lactic Acid Level 1.90 0.50-2.00 MMOL/L Calcium Level 10.1 8.5-10.1 MG/DL Corrected Calcium 8.5-10.1 MG/DL Total Bilirubin 2.2 H 0.1-1.0 MG/DL Aspartate Amino Transf (AST/SGOT) 656 H 5-34 U/L Alanine Aminotransferase (ALT/SGPT) 457 H 0-55 U/L Alkaline Phosphatase 124 40-136 U/L Lactate Dehydrogenase 634 H 125-220 U/L C-Reactive Protein High Sensitivity 0.06 0.00-0.50 MG/DL Total Protein 8.1 6.4-8.2 GM/DL Albumin 4.9 H 3.2-4.5 GM/DL Salicylates Level < 5.0 L 5.0-20.0 MG/DL Acetaminophen Level 10 10-30 UG/ML Serum Alcohol < 10 <10 MG/DL Urine Color ORANGE Urine Clarity CLEAR Urine pH 6.0 5-9 Urine Specific [place] 1.025 H 1.016-1.022 Urine Protein 2+ H NEGATIVE Urine Glucose (UA) TRACE H NEGATIVE Urine Ketones TRACE H NEGATIVE Urine Nitrite NEGATIVE NEGATIVE Urine Bilirubin 2+ H NEGATIVE Urine Urobilinogen 4.0 < = 1.0 MG/DL Urine Leukocyte Esterase NEGATIVE NEGATIVE Urine RBC (Auto) NEGATIVE NEGATIVE Urine RBC RARE /HPF Urine WBC NONE /HPF Urine Squamous Epithelial Cells RARE /HPF Urine Crystals PRESENT H /LPF Urine Calcium Oxalate Crystals RARE H /LPF Urine Amorphous Sediment RARE DEANA URATES H /LPF Urine Bacteria NEGATIVE /HPF Urine Casts PRESENT /LPF Urine Hyaline Casts 2-5 H /LPF Urine Mucus MODERATE H /LPF Urine Culture Indicated NO My Orders Orders - VERA COHN MD Ua Culture If Indicated (07/30/19 08:32) Cbc With Automated Diff (07/30/19 08:32) Comprehensive Metabolic Panel (07/30/19 08:32) Alcohol (07/30/19 08:32) Drug Screen Stat (Urine) (07/30/19 08:32) Acetaminophen (07/30/19 08:32) Salicylate (07/30/19 08:32) Ekg Tracing (07/30/19 08:32) Ed Iv/Invasive Line Start (07/30/19 08:32) Monitor-Rhythm Ecg Trace Only (07/30/19 08:32) Ed Iv/Invasive Line Start (07/30/19 08:32) Lactated Ringers (Lr 1000 Ml Iv Solution (07/30/19 08:32) Fibrin Degradation Products (07/30/19 08:32) Procalcitonin (Pct) (07/30/19 08:32) Hs C Reactive Protein (07/30/19 08:32) Erythrocyte Sedimentation Rate (07/30/19 08:32) LDH (07/30/19 08:32) Coronavirus Sars-Cov-2 So 2018 (07/30/19 08:32) Chest 1 View, Ap/Pa Only (07/30/19 08:32) Lactated Ringers (Lr 1000 Ml Iv Solution (07/30/19 08:34) Lorazepam Injection (Ativan Injection) (07/30/19 08:42) Lactic Acid Analyzer (07/30/19 09:29) Blood Culture (07/30/19 09:29) Medications Given in ED Current Medications Medications Dose Ordered Sig/Simran Route Start Time Stop Time Status Last Admin Dose Admin Lactated Ringer's 1,000 ml @ 0 mls/hr Q0M ONCE IV 07/30/19 08:32 07/30/19 08:35 DC 07/30/19 08:48 0 MLS/HR Lorazepam 2 mg STK-MED ONCE .ROUTE 07/30/19 08:42 07/30/19 08:44 DC 07/30/19 08:48 1 MG Vital Signs/I&O 07/30/19 08:21 Temp 37.4 Pulse 101 Resp 18 B/P (MAP) 142/103 (116) Pulse Ox 99 O2 Delivery Room Air Progress Progress Note : Progress Note Seen and evaluated. IV, labs, UA, UDS, chest x-ray, EKG, COVID testing, LR 1 L bolus and Ativan 1 mg IV ordered. Monitor patient. 0950: I have discussed the case with Dr. Ortega. Given that the patient has acute alcohol withdrawal with history of abuse as well as concerns for suicidal ideation and COVID-19 evaluation, patient will be admitted and alcohol withdrawal protocol and COVID- 19 precautions. Admit, inpatient status. Patient agrees with plan. Initial ECG Impression Date: Jul 30, 2019 Initial ECG Impression Time: 08:46 Initial ECG Rate: 82 Initial ECG Rhythm: Normal Sinus Initial ECG Impression: Normal Initial ECG Comparisson: Unchanged (06/25/19) Comment Sinus rhythm with normal axis. No signs of ST elevation [place]. Interpreted by me. Diagnostic Imaging Diagonstic Imaging: Xray Plain Films/CT/US/NM/MRI: chest Comments [facility]LaunchHear [facility]. [place], [place] NAME: OLESYA TODD [facility] REC#: [id number] PT STATUS: REG ER : 1985 PHYSICIAN: VERA COHN MD ADMIT DATE: 07/30/19/ER Draft Date of Exam:07/30/19 CHEST 1 VIEW, AP/PA ONLY CLINICAL INDICATION: Patient with cough and fever and wanting to detox from alcohol. Patient states cough started 2 days ago. EXAM: Portable chest x-ray, upright view. COMPARISON: Chest x-ray dated 05/21/2019. FINDINGS: Lungs/pleura: The lungs are clear. There is no pneumothorax. There is no pleural effusion. Mediastinum: Unremarkable. Pulmonary vasculature: Unremarkable. Heart: Unremarkable. Bones/extrathoracic soft tissue: Unremarkable. IMPRESSION: There is no radiographic evidence of an acute cardiopulmonary process. Dictated on workstation # [id number] Dict: 07/30/19 0916 Trans: 07/30/19 0919 [id number] Interpreted by: MELISA POLLARD MD Electronically signed by: Departure Communication (Admissions) Time/Spoke to Admitting Phy: 09:50 Impression Primary Impression: Alcohol abuse Additional Impressions: Suicidal ideations COVID-19 evaluation Disposition: ADMITTED INPATIENT Condition: Stable Admissions Decision to Admit Reason: Admit from ER (General) Decision to Admit/Date: Jul 30, 2019 Time/Decision to Admit Time: 09:50 Departure-Patient Inst. Referrals: [facility] (PCP/Family) Primary Care Physician Patient Instructions: ALCOHOL AND SUBSTANCE ABUSE VERA COHN MD Jul 30, 2019 08:59
[2019-07-30 09:19] LABS: AMPHETAMINE SCREEN, URINE NEGATIVE (NEGATIVE); BARBITURATE SCREEN URINE NEGATIVE (NEGATIVE); BENZODIAZEPINES SCREEN URINE NEGATIVE (NEGATIVE); CANNABINOID SCREEN, URINE POSITIVE (NEGATIVE); COCAINE SCREEN URINE NEGATIVE (NEGATIVE); METHADONE STAT NEGATIVE (NEGATIVE); METHAMPHETAMINE SCREEN URINE S POSITIVE (NEGATIVE); OPIATE SCREEN URINE POSITIVE (NEGATIVE); OXYCODONE STAT NEGATIVE (NEGATIVE); PROPOXYPHENE STAT NEGATIVE (NEGATIVE); TRICYCLIC ANTIDEPRESSANTS SCRE NEGATIVE (NEGATIVE)
--- NOTE | 2019-07-30 09:19 | Diagnostic Imaging Report ---
CLINICAL INDICATION: Patient with cough and fever and wanting to detox from alcohol. Patient states cough started 2 days ago. EXAM: Portable chest x-ray, upright view. COMPARISON: Chest x-ray dated 05/21/2019. FINDINGS: Lungs/pleura: The lungs are clear. There is no pneumothorax. There is no pleural effusion. Mediastinum: Unremarkable. Pulmonary vasculature: Unremarkable. Heart: Unremarkable. Bones/extrathoracic soft tissue: Unremarkable. IMPRESSION: There is no radiographic evidence of an acute cardiopulmonary process. Dictated by: Dictated on workstation # [id number]
[2019-07-30 09:23] LABS: CHLORIDE 98 MMOL/L (98-107); POTASSIUM 3.2 MMOL/L (3.6-5.0); SODIUM 136 MMOL/L (135-145)
[2019-07-30 09:24] LABS: ALBUMIN 4.9 GM/DL (3.2-4.5)
[2019-07-30 09:25] LABS: AMORPHOUS SEDIMENT,UR RARE AMOR URATES /LPF; BACTERIA,URINE NEGATIVE /HPF; BILIRUBIN,URINE 2+ (NEGATIVE); CALCIUM OXALATE CRYSTALS,UR RARE /LPF; RBC,URINE RARE /HPF; SQUAMOUS EPITHELIAL CELL,UR RARE /HPF
[2019-07-30 09:25] LABS: CALCIUM 10.1 MG/DL (8.5-10.1)
[2019-07-30 09:26] LABS: GLUCOSE 120 MG/DL (70-105)
[2019-07-30 09:27] LABS: CARBON DIOXIDE 20 MMOL/L (21-32); TOTAL PROTEIN 8.1 GM/DL (6.4-8.2)
[2019-07-30 09:28] LABS: BILIRUBIN,TOTAL 2.2 MG/DL (0.1-1.0)
[2019-07-30 09:30] LABS: ALKALINE PHOSPHATASE 124 U/L (40-136); CREATININE SERUM 1.17 MG/DL (0.60-1.30); GFR ESTIMATED > 60
[2019-07-30 09:31] LABS: ACETAMINOPHEN 10 UG/ML (10-30)
[2019-07-30 09:32] LABS: BUN/CREATININE RATIO 3; ERYTHROCYTE SEDIMENTATION RATE 1 MM/HR (0-15)
[2019-07-30 09:33] LABS: ALANINE AMINOTRANSFERASE 457 U/L (0-55); SALICYLATE < 5.0 MG/DL (5.0-20.0)
--- NOTE | 2019-07-30 10:30 | NUR ---
report taken at this time from ARIC Bales from emergency depart., this RN will assume care of this patient when he arrives to this floor.
--- NOTE | 2019-07-30 10:45 | NUR ---
OLESYA TODD admitted to room 433-1, with an admitting diagnosis of alcohol withdrawal, on 07/30/19 from emergency department via w/c, accompanied by emergency department staff. OLESYA TODD introduced to surroundings, call light, bed controls, phone, TV, temperature control, lights, meal times, smoking policy, visitor policy, side rail policy, bathrooms and showers. Patient Rights given to patient in the handbook. OLESYA TODD verbalizes understanding that [facility] is not responsible for the loss or damage to any personal effects or valuables that are kept in the patients posession during their hospitalization. OLESYA TODD verbalizes understanding of Interdisciplinary Patient Education. Patient and/or family were informed about the Rapid Response Team and its purpose.
[2019-07-30] MEDS ORDERED: ONDANSETRON 4 MG (ZOFRAN) ORAL DISSOLVE TAB SL PRN (11:00)
[2019-07-30] MEDS ORDERED: D5 1/2 NS 1000 ML IV SOLUTION 1,000 ML IV PRN (11:00)
[2019-07-30] MEDS ORDERED: ANTACID SUSP 30 ML UDC (MYLANTA) PO PRN (11:00)
[2019-07-30] MEDS ORDERED: ONDANSETRON 4 MG/2 ML (SDV) Z0FRAN IV PRN (11:00)
[2019-07-30] MEDS ORDERED: SENNA W/DOCUSATE (SENOKOT S) TABLET PO PRN (11:00)
[2019-07-30] MEDS: LACTATED RINGERS 1,000 ML IV SCH ×2 (11:11→16:04)
[2019-07-30 14:27] VITALS: BP 130/91
[2019-07-30 16:00] VITALS: BP 134/87
[2019-07-30] MEDS: LORazepam INJ 2 MG/ML (ATIVAN) VIAL IM/IV PRN (16:03)
--- NOTE | 2019-07-30 16:14 | NUR ---
SPOKE WITH THE PT AND CALLED [facility] TO COMPLETE THE MED REC 06-14-2019 KEPPRA 500MG #120/30DS - I DID DOCUMENT THE PAST DUE FILL ON THE MED REC 07-03-2019 ZOLOFT 100MG #30/30DS OTC MEDS: [employer] IBUPROFEN
--- NOTE | 2019-07-30 16:38 | NUR ---
DR. DURAND NOTIFIED OF NEGATIVE COVID-19 RESULTS. NEW ORDERS TO CHANGE THIS PATIENT TO STANDARD/SEIZURE PRECAUTIONS AND MOVE PATIENT TO ANOTHER DYE. THIS RN WILL MOVE THIS PATIENT TO [facility].
--- NOTE | 2019-07-30 16:47 | NUR ---
PATIENT TO 424-1 VIA BED/CART AT THIS TIME.
[2019-07-30] MEDS: MAGNESIUM OXIDE (MAG-OX)400 MG TAB PO SCH (20:07)
[2019-07-30 20:21] VITALS: BP 133/93
--- NOTE | 2019-07-30 22:28 | History & Physical ---
HPI History of Present Illness: 33 yo M with h/o Alcoholism that presents because he would like to stop drinking and has a h/o withdraw seizures and is having significant signs of withdraw. Patient is very shaky upon arrival to ER. States that his last drink was yesterday. States that he has been to rehab in the past and his parents have several places they are trying to get him into after this admission. Drinks about 1/5 Vodka daily and has been for a while. States that he is also having a cough and is worried that he has COVID. No known exposure. Source: patient Date seen by provider: Jul 30, 2019 Time Seen by Provider: 18:45 Attending Physician Heidi Ortega MD [facility] [place] Consult Date of Admission Jul 30, 2019 at 10:16 Home Medications Home Medications Reviewed patient Home Medication Reconciliation performed by pharmacy medication reconciliations biological lab technician and/or nursing. Patients Allergies have been reviewed. Allergies Coded Allergies: shellfish derived (Unverified Allergy, Mild, RASH, 07/25/12) STATES " ITCHY THROAT, AND FACES GETS RED" [id number] Hx Patient Social History Alcohol Use: Regular Use Recreational Drug Use: Yes Drug of Choice: THC NOW, LSD, AND "EVERYTHING YOU CAN THINK OF" IN THE PAST. DENIES IV USE Smoking Status: Current Everyday Smoker (going to 10. Physically be urine is a couple) Type Used: Cigarettes 2nd Hand Smoke Exposure: Yes Recent Foreign Travel: No Contact w/other who traveled: No Recent Hopitalizations: No Recent Infectious Disease Expo: No Immunizations Up To Date Tetanus Booster (TDap): Less than 5yrs Past Medical History Past Medical History 1. Alcoholism 2. History of seizures with alcohol withdrawal 3. Chronic THC use 4. Tobaccoism 5. Depression Past Surgical History 1. ORIF bilateral mandible fracture 2011 Dr. Perla Family Medical History Significant Family History: No Pertinent Family Hx Family History: FHx: suicide G8 SISTER Review of Systems ([facility]) Constitutional: No chills, No fever; malaise EENTM: no symptoms reported; No mouth pain, No nose congestion, No nose pain, No throat pain Respiratory: cough; No dyspnea on exertion, No short of breath Cardiovascular: no symptoms reported; No chest pain, No edema, No palpitations Gastrointestinal: No abdominal pain, No constipation, No diarrhea; loss of appetite, nausea Genitourinary: no symptoms reported; No dysuria, No frequency, No hematuria Musculoskeletal: no symptoms reported; No back pain, No joint pain, No muscle pain Skin: no symptoms reported; No lesions, No rash Psychiatric/Neurological: Depressed, Headache, Tremors Reviewed Test Results Reviewed Test Results Lab Laboratory Tests Test 07/30/19 08:15 07/30/19 08:30 07/30/19 08:42 Range/Units Urine Opiates Screen POSITIVE H NEGATIVE Urine Oxycodone Screen NEGATIVE NEGATIVE Urine Methadone Screen NEGATIVE NEGATIVE Urine Propoxyphene Screen NEGATIVE NEGATIVE Urine Barbiturates Screen NEGATIVE NEGATIVE Ur Tricyclic Antidepressants Screen NEGATIVE NEGATIVE Urine Phencyclidine Screen NEGATIVE NEGATIVE Urine Amphetamines Screen NEGATIVE NEGATIVE Urine Methamphetamines Screen POSITIVE H NEGATIVE Urine Benzodiazepines Screen NEGATIVE NEGATIVE Urine Cocaine Screen NEGATIVE NEGATIVE Urine Cannabinoids Screen POSITIVE H NEGATIVE White Blood Count 2.3 L 4.3-11.0 10^3/uL Red Blood Count 5.09 4.35-5.85 10^6/uL Hemoglobin 16.4 13.3-17.7 G/DL Hematocrit 47 40-54 % Mean Corpuscular Volume 91 80-99 FL Mean Corpuscular Hemoglobin 32 25-34 PG Mean Corpuscular Hemoglobin Concent 35 32-36 G/DL Red Cell Distribution Width 14.8 H 10.0-14.5 % Platelet Count 125 L 130-400 10^3/uL Mean Platelet Volume 10.1 7.4-10.4 FL Neutrophils (%) (Auto) 65 42-75 % Lymphocytes (%) (Auto) 17 12-44 % Monocytes (%) (Auto) 15 H 0-12 % Eosinophils (%) (Auto) 1 0-10 % Basophils (%) (Auto) 2 0-10 % Neutrophils # (Auto) 1.5 L 1.8-7.8 X 10^3 Lymphocytes # (Auto) 0.4 L 1.0-4.0 X 10^3 Monocytes # (Auto) 0.3 0.0-1.0 X 10^3 Eosinophils # (Auto) 0.0 0.0-0.3 10^3/uL Basophils # (Auto) 0.1 0.0-0.1 10^3/uL Erythrocyte Sedimentation Rate 1 0-15 MM/HR D-Dimer 0.84 H 0.00-0.49 UG/ML Sodium Level 136 135-145 MMOL/L Potassium Level 3.2 L 3.6-5.0 MMOL/L Chloride Level 98 98-107 MMOL/L Carbon Dioxide Level 20 L 21-32 MMOL/L Anion Gap 18 H 5-14 MMOL/L Blood Urea Nitrogen 4 L 7-18 MG/DL Creatinine 1.17 0.60-1.30 MG/DL Estimat Glomerular Filtration Rate > 60 BUN/Creatinine Ratio 3 Glucose Level 120 H 70-105 MG/DL Lactic Acid Level 1.90 0.50-2.00 MMOL/L Calcium Level 10.1 8.5-10.1 MG/DL Corrected Calcium 8.5-10.1 MG/DL Total Bilirubin 2.2 H 0.1-1.0 MG/DL Aspartate Amino Transf (AST/SGOT) 656 H 5-34 U/L Alanine Aminotransferase (ALT/SGPT) 457 H 0-55 U/L Alkaline Phosphatase 124 40-136 U/L Lactate Dehydrogenase 634 H 125-220 U/L C-Reactive Protein High Sensitivity 0.06 0.00-0.50 MG/DL Total Protein 8.1 6.4-8.2 GM/DL Albumin 4.9 H 3.2-4.5 GM/DL Procalcitonin 0.14 H <0.10 NG/ML Salicylates Level < 5.0 L 5.0-20.0 MG/DL Acetaminophen Level 10 10-30 UG/ML Serum Alcohol < 10 <10 MG/DL Coronavirus (COVID-19)(PCR) Negative Negative Urine Color ORANGE Urine Clarity CLEAR Urine pH 6.0 5-9 Urine Specific [place] 1.025 H 1.016-1.022 Urine Protein 2+ H NEGATIVE Urine Glucose (UA) TRACE H NEGATIVE Urine Ketones TRACE H NEGATIVE Urine Nitrite NEGATIVE NEGATIVE Urine Bilirubin 2+ H NEGATIVE Urine Urobilinogen 4.0 < = 1.0 MG/DL Urine Leukocyte Esterase NEGATIVE NEGATIVE Urine RBC (Auto) NEGATIVE NEGATIVE Urine RBC RARE /HPF Urine WBC NONE /HPF Urine Squamous Epithelial Cells RARE /HPF Urine Crystals PRESENT H /LPF Urine Calcium Oxalate Crystals RARE H /LPF Urine Amorphous Sediment RARE DEANA URATES H /LPF Urine Bacteria NEGATIVE /HPF Urine Casts PRESENT /LPF Urine Hyaline Casts 2-5 H /LPF Urine Mucus MODERATE H /LPF Urine Culture Indicated NO Physical Exam-([facility]) Physical Exam Vital Signs VS - Last 72 Hours, by Label 07/30/19 07/30/19 07/30/19 07/30/19 08:21 10:40 14:27 14:31 Temp 37.4 37.4 Pulse 101 85 85 Resp 18 18 18 B/P (MAP) 142/103 (116) 130/91 130/91 Pulse Ox 99 94 94 94 O2 Delivery Room Air Room Air Room Air Room Air 07/30/19 07/30/19 16:00 20:21 Temp 36.4 37.3 Pulse 71 86 Resp 16 16 B/P (MAP) 134/87 (103) 133/93 (106) Pulse Ox 93 96 O2 Delivery Room Air Room Air Capillary Refill : Less Than 3 Seconds General Appearance: WD/WN, mild distress HEENT: PERRL/EOMI Neck: non-tender, full range of motion Respiratory: chest non-tender, lungs clear, normal breath sounds, no respiratory distress, no accessory muscle use Cardiovascular: normal peripheral pulses, regular rate, rhythm, no edema, no murmur Gastrointestinal: normal bowel sounds, non tender, soft Back: no CVA tenderness, no vertebral tenderness Extremities: normal range of motion, no pedal edema, no calf tenderness, normal capillary refill, other (fine tremor bilaterally) 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 as tested, no motor/sensory deficits, alert, oriented x 3, depressed affect Skin: normal color, warm/dry Lymphatic: no adenopathy Assessment/Plan Assessment/Plan Admission Status: Inpatient Order (span 2 midnights) Reason for Inpatient Admission: complicated EtOH withdraw patient that needs close monitoring, h/o seizures w/ withdraw (1) Alcohol intoxication in active alcoholic Status: Acute Assessment & Plan: - Less then 24 hrs since last drink, CIWS, Folic Acid and Thiamine, plans to go to rehab will have SW discuss with patient's parents there plan of placement Qualifiers: Qualified Codes: F10.229 - Alcohol dependence with intoxication, unspecified (2) Seizure disorder Status: Chronic Assessment & Plan: - Restarted Keppra (3) Suicidal ideations Status: Acute Assessment & Plan: - patient currently denying thoughts of wanting to harm self (4) Illicit drug use Status: Acute (5) DVT prophylaxis Status: Acute Assessment & [facility] Clinical Quality Measures DVT/VTE Risk/Contraindication: Risk Factor Score Per Nursin RFS Level Per Nursing on Admit: 1=Low/No VTE PPX HEIDI ORTEGA MD Jul 30, 2019 22:28
[2019-07-30] MEDS: LORazepam INJ 2 MG/ML (ATIVAN) VIAL IV PRN (22:56)
[2019-07-31 00:30] VITALS: BP 121/85
[2019-07-31] MEDS: LACTATED RINGERS 1,000 ML IV SCH ×3 (02:32→18:07)
[2019-07-31 04:00] VITALS: BP 128/99
[2019-07-31 04:51] LABS: BASOPHILS % (AUTO) 1 % (0-10); EOSINOPHILS # (AUTO) 0.1 10^3/uL (0.0-0.3); EOSINOPHILS % (AUTO) 2 % (0-10); HEMATOCRIT 44 % (40-54); HEMOGLOBIN 15.5 G/DL (13.3-17.7); LYMPHOCYTES # (AUTO) 0.7 X 10^3 (1.0-4.0); LYMPHOCYTES % (AUTO) 21 % (12-44); MEAN CORPUSCULAR HEMOGLOBIN 33 PG (25-34); MEAN CORPUSCULAR HGB CONC 35 G/DL (32-36); MEAN CORPUSCULAR VOLUME 94 FL (80-99); MEAN PLATELET VOLUME 11.1 FL (7.4-10.4); MONOCYTES # (AUTO) 0.5 X 10^3 (0.0-1.0); MONOCYTES % (AUTO) 14 % (0-12); NEUTROPHILS % (AUTO) 62 % (42-75); PLATELET COUNT 109 10^3/uL (130-400); RED CELL DISTRIBUTION WIDTH 14.3 % (10.0-14.5); WHITE BLOOD COUNT 3.2 10^3/uL (4.3-11.0)
[2019-07-31 05:00] LABS: ALBUMIN 3.9 GM/DL (3.2-4.5)
[2019-07-31 05:01] LABS: CHLORIDE 104 MMOL/L (98-107); POTASSIUM 3.5 MMOL/L (3.6-5.0); SODIUM 139 MMOL/L (135-145)
[2019-07-31 05:02] LABS: CALCIUM 9.1 MG/DL (8.5-10.1)
[2019-07-31 05:03] LABS: GLUCOSE 106 MG/DL (70-105); TOTAL PROTEIN 6.2 GM/DL (6.4-8.2)
[2019-07-31 05:04] LABS: CARBON DIOXIDE 23 MMOL/L (21-32)
[2019-07-31 05:05] LABS: BILIRUBIN,TOTAL 3.1 MG/DL (0.1-1.0)
[2019-07-31 05:06] LABS: ALKALINE PHOSPHATASE 103 U/L (40-136)
[2019-07-31 05:07] LABS: CREATININE SERUM 0.79 MG/DL (0.60-1.30); GFR ESTIMATED > 60
[2019-07-31 05:08] LABS: BUN/CREATININE RATIO 8
[2019-07-31 05:09] LABS: ALANINE AMINOTRANSFERASE 393 U/L (0-55)
[2019-07-31] MEDS: MULTIVIT W/MINERALS TAB (THERAGRAN M) PO SCH (05:28)
[2019-07-31] MEDS: THIAMINE 100 MG (VITAMIN B-1) TAB PO SCH (05:28)
[2019-07-31] MEDS: LORazepam INJ 2 MG/ML (ATIVAN) VIAL IV PRN ×4 (05:38→19:46)
[2019-07-31 08:00] VITALS: BP 144/98
--- NOTE | 2019-07-31 08:04 | NUR ---
PT DENIES ANY SUICIDAL THOUGHTS -- WILL
[2019-07-31] MEDS: LEVETIRACETAM 500 MG (KEPPRA) TAB PO SCH ×2 (09:04→19:46)
[2019-07-31] MEDS: MAGNESIUM OXIDE (MAG-OX)400 MG TAB PO SCH ×2 (09:04→19:46)
[2019-07-31] MEDS: FOLIC ACID 1 MG TAB PO SCH (09:04)
[2019-07-31 11:00] VITALS: BP 129/82
--- NOTE | 2019-07-31 14:56 | NUR ---
CM/SS visited with patient for discharge planning. The patient reports that he is not suicidal and not having any suicidal ideation at this time. The patient was in bed with what appeared like shivering; however, the patient reports it's due to the "shakes". The patient states he is starting to feel better today compared to yesterday. The patients physician reports that he is willing and wanting to go to inpatient alcohol treatment. Treatment: The patient reports he has been to [facility] in [place] in the past. He reports he has also been to the [facility] in [place] and "hated every moment of it". The patient states he would like to try and stay as close as possible for his family. CM/SS attempted to contact the patients mother x2 without answer and voicemail is not set up. Will continue to try and contact her. CM/SS contacted [facility] from [place] who stated they do not have a bed until September and he would need a drug/alcohol assessment. CM/SS will speak with patient to see if he wants to schedule that or if he would like this ss to look elsewhere. Supports: The patient is currently unemployed and not receiving any state financial assistance. The patient is staying with his parents until he is able to go to treatment. They are providing him with hodge assistance. The patient has an ex significant other who is the mother of his children. He has one daughter and one son-in-law. The patient states he does not get to see them often. Summary: The patient states that he went to [facility] in [place] and was sober for the duration of 3 years. He states he had a lapse after his sister and his ex took his kids away. The patient verbalized he has now been drinking for the past year. His drink of choice is Vodka and admits to drinking about a fifth a day. He reports to this ss that he is very motivated to get help because he "can't keep living like this". CM/SS will continue to follow.
[2019-07-31 16:00] VITALS: BP 123/86
[2019-07-31 20:58] VITALS: BP 130/89
--- NOTE | 2019-07-31 22:14 | Progress Note ---
Subjective Subjective/Events-last exam Still having shakes pretty bad. Denies seeing or hearing anything that is not there. Tolerating fluids. Has not been up OOB. Review of Systems HEENT: Head Aches Pulmonary: No Dyspnea, No Cough Cardiovascular: No: Chest Pain, Palpitations, Edema Gastrointestinal: Nausea, Abdominal Pain; No: Vomiting Focused Exam Lactate Level 07/30/19 08:30: Lactic Acid Level 1.90 Objective Exam Last Set of Vital Signs Vital Signs Date Time Temp Pulse Resp B/P (MAP) Pulse Ox O2 Delivery O2 Flow Rate FiO2 07/31/19 20:58 37.2 97 20 130/89 (103) 95 Room Air Capillary Refill : Less Than 3 Seconds I&O Intake and Output 07/31/19 00:00 Intake Total 2200 ml Output Total 1 ml Balance 2199 ml Intake Oral 1200 ml IV Total 1000 ml Output Urine Total 1 ml # Voids 3 # Bowel Movements 1 Daily Weight Change No General: Alert, Oriented X3, Cooperative HEENT: Mucous Memb Moist/[place] Lungs: Clear to Auscultation, Normal Air Movement Heart: Regular Rate, No Murmurs Abdomen: Normal Bowel Sounds, Soft, No Tenderness, No Masses Extremities: No Edema, No Tenderness/Swelling, Other (fine tremor bilaterally) Neuro: Normal Speech, Strength at 5/5 X4 Ext, Sensation Intact, Cranial Nerves 3-12 NL Results/Procedures Lab Laboratory Tests 07/31/19 04:34: White Blood Count 3.2L, Red Blood Count 4.73, Hemoglobin 15.5, Hematocrit 44, Mean Corpuscular Volume 94, Mean Corpuscular Hemoglobin 33, Mean Corpuscular Hemoglobin Concent 35, Red Cell Distribution Width 14.3, Platelet Count 109L, Mean Platelet Volume 11.1H, Neutrophils (%) (Auto) 62, Lymphocytes (%) (Auto) 21, Monocytes (%) (Auto) 14H, Eosinophils (%) (Auto) 2, Basophils (%) (Auto) 1, Neutrophils # (Auto) 2.0, Lymphocytes # (Auto) 0.7L, Monocytes # (Auto) 0.5, Eosinophils # (Auto) 0.1, Basophils # (Auto) 0.0, Sodium Level 139, Potassium Level 3.5L, Chloride Level 104, Carbon Dioxide Level 23, Anion Gap 12, Blood Urea Nitrogen 6L, Creatinine 0.79, Estimat Glomerular Filtration Rate > 60, BUN/Creatinine Ratio 8, Glucose Level 106H, Calcium Level 9.1, Corrected Calcium 9.2, Total Bilirubin 3.1H, Aspartate Amino Transf (AST/SGOT) 590H, Alanine Amino transferase (ALT/SGPT) 393H, Alkaline Phosphatase 103, Total Protein 6.2L, Albumin 3.9 Microbiology 07/30/19 Blood Culture - Preliminary, Resulted Staph, Coag Neg (STE[employer]ING [employer]) See Comments Assessment/Plan Assessment/Plan (1) Alcohol intoxication in active alcoholic Status: Acute Assessment & Plan: - Less then 24 hrs since last drink, CIWS, Folic Acid and Thiamine, plans to go to rehab will have SW discuss with patient's parents there plan of placement 07/30: Continue CIWS, Ativan Prn Qualifiers: Qualified Codes: F10.229 - Alcohol dependence with intoxication, unspecified (2) Seizure disorder Status: Chronic Assessment & Plan: - Restarted Keppra (3) Suicidal ideations Status: Acute Assessment & Plan: - patient currently denying thoughts of wanting to harm self (4) Illicit drug use Status: Acute Assessment & Plan: 07/30: Discussed the need for cessation (5) DVT prophylaxis Status: Acute Assessment & Plan: - SCDs Clinical Quality Measures DVT/VTE Risk/Contraindication: Risk Factor Score Per Nursin RFS Level Per Nursing on Admit: 1=Low/No VTE PPX SANJUANITA DURAND MD Jul 31, 2019 22:14
[2019-08-01] VITALS: BP 141/96
[2019-08-01] MEDS: LORazepam INJ 2 MG/ML (ATIVAN) VIAL IV PRN ×9 (00:20→18:08)
[2019-08-01] MEDS: LACTATED RINGERS 1,000 ML IV SCH ×4 (02:42→20:15)
[2019-08-01 04:00] VITALS: BP 120/83
[2019-08-01 04:51] LABS: BASOPHILS # (AUTO) 0.1 10^3/uL (0.0-0.1); BASOPHILS % (AUTO) 2 % (0-10); EOSINOPHILS # (AUTO) 0.1 10^3/uL (0.0-0.3); EOSINOPHILS % (AUTO) 2 % (0-10); HEMATOCRIT 44 % (40-54); HEMOGLOBIN 15.5 G/DL (13.3-17.7); LYMPHOCYTES # (AUTO) 0.5 X 10^3 (1.0-4.0); LYMPHOCYTES % (AUTO) 16 % (12-44); MEAN CORPUSCULAR HEMOGLOBIN 33 PG (25-34); MEAN CORPUSCULAR HGB CONC 35 G/DL (32-36); MEAN CORPUSCULAR VOLUME 94 FL (80-99); MEAN PLATELET VOLUME 11.6 FL (7.4-10.4); MONOCYTES # (AUTO) 0.4 X 10^3 (0.0-1.0); MONOCYTES % (AUTO) 13 % (0-12); NEUTROPHILS # (AUTO) 2.2 X 10^3 (1.8-7.8); NEUTROPHILS % (AUTO) 68 % (42-75); PLATELET COUNT 101 10^3/uL (130-400); RED CELL DISTRIBUTION WIDTH 14.4 % (10.0-14.5); WHITE BLOOD COUNT 3.2 10^3/uL (4.3-11.0)
[2019-08-01] MEDS: MULTIVIT W/MINERALS TAB (THERAGRAN M) PO SCH (05:03)
[2019-08-01] MEDS: THIAMINE 100 MG (VITAMIN B-1) TAB PO SCH (05:03)
[2019-08-01 05:07] LABS: ALBUMIN 3.9 GM/DL (3.2-4.5); CHLORIDE 104 MMOL/L (98-107); POTASSIUM 3.4 MMOL/L (3.6-5.0); SODIUM 138 MMOL/L (135-145)
[2019-08-01 05:08] LABS: CALCIUM 9.3 MG/DL (8.5-10.1)
[2019-08-01 05:09] LABS: GLUCOSE 126 MG/DL (70-105); TOTAL PROTEIN 6.5 GM/DL (6.4-8.2)
[2019-08-01 05:10] LABS: CARBON DIOXIDE 22 MMOL/L (21-32)
[2019-08-01 05:11] LABS: BILIRUBIN,TOTAL 2.5 MG/DL (0.1-1.0)
[2019-08-01 05:12] LABS: ALKALINE PHOSPHATASE 108 U/L (40-136)
[2019-08-01 05:13] LABS: CREATININE SERUM 0.79 MG/DL (0.60-1.30); GFR ESTIMATED > 60
[2019-08-01 05:14] LABS: BUN/CREATININE RATIO 6
[2019-08-01 06:12] LABS: ALANINE AMINOTRANSFERASE 318 U/L (0-55)
[2019-08-01 08:00] VITALS: BP 131/87
[2019-08-01] MEDS: LEVETIRACETAM 500 MG (KEPPRA) TAB PO SCH ×2 (08:00→20:15)
[2019-08-01] MEDS: MAGNESIUM OXIDE (MAG-OX)400 MG TAB PO SCH ×2 (08:00→20:15)
[2019-08-01] MEDS ORDERED: KCL 20 MEQ TAB (K-DUR) PO ONE (08:00)
[2019-08-01] MEDS: FOLIC ACID 1 MG TAB PO SCH (08:00)
[2019-08-01] MEDS: NICOTINE 7 MG (NICODERM) PATCH TD SCH (09:25)
[2019-08-01 12:00] VITALS: BP 124/87
--- NOTE | 2019-08-01 15:38 | NUR ---
CM/SS follow up. CM/SS visited with the patient first thing this morning in regards to treatment. CM/SS informed him of the bed date with [facility] September and he verbalized he would like me to book him a bed as a back up with them. SHAVON/MALIK is running into challenges due to patient not having insurance and self pay pricing being 8 to 10,000 dollars. Therefore, SHAVON/MALIK is waiting for a call back from [facility] and [facility] in [place]. The patient reports that he could go through the [facility] for treatment but this ss could not find any information online. He reports that it wouldn't be online and his mother and him will have to look into that. SHAVON/SS is unsure if she will find patient treatment as direct admission. Will continue to follow.
[2019-08-01 16:16] VITALS: BP 126/89
[2019-08-01] MEDS: LORazepam 1 MG (ATIVAN) TAB PO PRN (20:19)
[2019-08-01 20:25] VITALS: BP 142/76
--- NOTE | 2019-08-01 22:32 | Progress Note ---
Subjective Subjective/Events-last exam Patient continues to have tremors but they are improving and anxiety is improving. Tolerating PO diet and ambulation Review of Systems Pulmonary: No Dyspnea, No Cough Cardiovascular: No: Chest Pain Gastrointestinal: Nausea, Abdominal Pain Focused Exam Lactate Level 07/30/19 08:30: Lactic Acid Level 1.90 Objective Exam Last Set of Vital Signs Vital Signs Date Time Temp Pulse Resp B/P (MAP) Pulse Ox O2 Delivery O2 Flow Rate FiO2 08/01/19 20:25 37.1 98 18 142/76 (98) 98 Room Air Capillary Refill : Less Than 3 Seconds I&O Intake and Output 08/01/19 00:00 Intake Total 3600 ml Output Total 1900 ml Balance 1700 ml Intake Oral 1600 ml IV Total 2000 ml Output Urine Total 1900 ml # Voids 1 # Bowel Movements 1 General: Alert, Oriented X3, Mild Distress HEENT: Mucous Memb Moist/[place] Lungs: Clear to Auscultation, Normal Air Movement Heart: Regular Rate, No Murmurs Abdomen: Normal Bowel Sounds, Soft, Other (mild epigastric ttp) Extremities: No Edema, No Tenderness/Swelling Neuro: Normal Speech Psych/Mental Status: Other (+ Anxiety) Results/Procedures Lab Laboratory Tests 08/01/19 04:20: White Blood Count 3.2L, Red Blood Count 4.72, Hemoglobin 15.5, Hematocrit 44, Mean Corpuscular Volume 94, Mean Corpuscular Hemoglobin 33, Mean Corpuscular Hemoglobin Concent 35, Red Cell Distribution Width 14.4, Platelet Count 101L, Mean Platelet Volume 11.6H, Neutrophils (%) (Auto) 68, Lymphocytes (%) (Auto) 16, Monocytes (%) (Auto) 13H, Eosinophils (%) (Auto) 2, Basophils (%) (Auto) 2, Neutrophils # (Auto) 2.2, Lymphocytes # (Auto) 0.5L, Monocytes # (Auto) 0.4, E osinophils # (Auto) 0.1, Basophils # (Auto) 0.1, Sodium Level 138, Potassium Level 3.4L, Chloride Level 104, Carbon Dioxide Level 22, Anion Gap 12, Blood Urea Nitrogen 5L, Creatinine 0.79, Estimat Glomerular Filtration Rate > 60, BUN/Creatinine Ratio 6, Glucose Level 126H, Calcium Level 9.3, Corrected Calcium 9.4, Total Bilirubin 2.5H, Aspartate Amino Transf (AST/SGOT) 338H, Alanine Aminotransferase (ALT/SGPT) 318H, Alkaline Phosphatase 108, Total Protein 6.5, Albumin 3.9 Microbiology 07/30/19 Blood Culture - Preliminary, Resulted No growth Assessment/Plan Assessment/Plan (1) Alcohol intoxication in active alcoholic Status: Acute Assessment & Plan: - Less then 24 hrs since last drink, CIWS, Folic Acid and Thiamine, plans to go to rehab will have SW discuss with patient's parents there plan of placement 07/30: Continue CIWS, Ativan Prn 07/31: Ativan requirement is trending down, plan for patient to go stay with mother until inpatient rehab, SW working on dates right now and the earliest is Sep Qualifiers: Qualified Codes: F10.229 - Alcohol dependence with intoxication, unspecified (2) Seizure disorder Status: Chronic Assessment & Plan: - Restarted Keppra (3) Alcoholic hepatitis Status: Acute Assessment & Plan: 07/31: LFTs trending down Qualifiers: Qualified Codes: K70.10 - Alcoholic hepatitis without ascites (4) Suicidal ideations Status: Acute Assessment & Plan: - patient currently denying thoughts of wanting to harm self (5) Illicit drug use Status: Acute Assessment & Plan: 07/30: Discussed the need for cessation (6) DVT prophylaxis Status: Acute Assessment & Plan: [facility] Clinical Quality Measures DVT/VTE Risk/Contraindication: Risk Factor Score Per Nursin RFS Level Per Nursing on Admit: 1=Low/No VTE PPX SANJUANITA DURAND MD Aug 01, 2019 22:32
[2019-08-02 00:46] VITALS: BP 131/93
[2019-08-02] MEDS: LACTATED RINGERS 1,000 ML IV SCH (03:12)
[2019-08-02] MEDS: LORazepam 1 MG (ATIVAN) TAB PO PRN ×3 (03:12→05:59)
[2019-08-02 04:26] VITALS: BP 134/91
[2019-08-02 05:09] VITALS: BP 134/91
[2019-08-02] MEDS: THIAMINE 100 MG (VITAMIN B-1) TAB PO SCH (05:59)
[2019-08-02] MEDS: MULTIVIT W/MINERALS TAB (THERAGRAN M) PO SCH (05:59)
[2019-08-02 07:29] LABS: BASOPHILS % (AUTO) 1 % (0-10); EOSINOPHILS % (AUTO) 1 % (0-10); HEMATOCRIT 46 % (40-54); HEMOGLOBIN 16.3 G/DL (13.3-17.7); LYMPHOCYTES # (AUTO) 0.7 X 10^3 (1.0-4.0); LYMPHOCYTES % (AUTO) 18 % (12-44); MEAN CORPUSCULAR HEMOGLOBIN 33 PG (25-34); MEAN CORPUSCULAR HGB CONC 35 G/DL (32-36); MEAN CORPUSCULAR VOLUME 94 FL (80-99); MEAN PLATELET VOLUME 11.7 FL (7.4-10.4); MONOCYTES # (AUTO) 0.6 X 10^3 (0.0-1.0); MONOCYTES % (AUTO) 15 % (0-12); NEUTROPHILS # (AUTO) 2.8 X 10^3 (1.8-7.8); NEUTROPHILS % (AUTO) 66 % (42-75); PLATELET COUNT 121 10^3/uL (130-400); RED CELL DISTRIBUTION WIDTH 14.7 % (10.0-14.5); WHITE BLOOD COUNT 4.2 10^3/uL (4.3-11.0)
[2019-08-02 07:40] VITALS: BP 143/99
[2019-08-02] MEDS: NICOTINE 7 MG (NICODERM) PATCH TD SCH (07:50)
[2019-08-02] MEDS: MAGNESIUM OXIDE (MAG-OX)400 MG TAB PO SCH (07:50)
[2019-08-02] MEDS: LEVETIRACETAM 500 MG (KEPPRA) TAB PO SCH (07:50)
[2019-08-02] MEDS: FOLIC ACID 1 MG TAB PO SCH (07:50)
[2019-08-02 07:54] LABS: ALANINE AMINOTRANSFERASE 277 U/L (0-55); ALBUMIN 4.4 GM/DL (3.2-4.5); ALKALINE PHOSPHATASE 107 U/L (40-136); BILIRUBIN,TOTAL 1.8 MG/DL (0.1-1.0); BUN/CREATININE RATIO 10; CALCIUM 9.7 MG/DL (8.5-10.1); CARBON DIOXIDE 18 MMOL/L (21-32); CHLORIDE 104 MMOL/L (98-107); CREATININE SERUM 0.79 MG/DL (0.60-1.30); GFR ESTIMATED > 60; GLUCOSE 91 MG/DL (70-105); POTASSIUM 3.8 MMOL/L (3.6-5.0); SODIUM 138 MMOL/L (135-145); TOTAL PROTEIN 7.4 GM/DL (6.4-8.2)
[2019-08-02] MEDS: LORazepam INJ 2 MG/ML (ATIVAN) VIAL IM/IV PRN ×2 (08:02→11:21)
[2019-08-02] MEDS ORDERED: NICOTINE PATCH REMOVAL TP SCH (08:59)
--- NOTE | 2019-08-02 11:07 | Discharge Summary ---
Diagnosis/Chief Complaint Date of Admission Jul 30, 2019 at 10:16 Date of Discharge 08/02/2019 Admission Diagnosis Admission Diagnosis See problem list Discharge Diagnosis See below Problems/Diagnosis: (1) Alcohol intoxication in active alcoholic Assessment & Plan: - Less then 24 hrs since last drink, CIWS, Folic Acid and Thiamine, plans to go to rehab will have SW discuss with patient's parents there plan of placement 07/30: Continue CIWS, Ativan Prn 07/31: Ativan requirement is trending down, plan for patient to go stay with mother until inpatient rehab, SW working on dates right now and the earliest is Sep 26: Patient interested in outpatient ATS, appt set up for tomorrow, script sent for ativan 4 doses Qualifiers: Qualified Codes: F10.229 - Alcohol dependence with intoxication, unspecified Status: Acute (2) Seizure disorder Assessment & Plan: - Restarted Keppra Status: Chronic (3) Alcoholic hepatitis Assessment & Plan: 07/31: LFTs trending down Qualifiers: Qualified Codes: K70.10 - Alcoholic hepatitis without ascites Status: Acute (4) Suicidal ideations Assessment & Plan: - patient currently denying thoughts of wanting to harm self Status: Acute (5) Illicit drug use Assessment & Plan: 07/30: Discussed the need for cessation Status: Acute (6) DVT prophylaxis Assessment & Plan: - SCDs Status: Acute Chief Complaint/HPI Chief Complaint/HPI 33 yo M with h/o Alcoholism that presents because he would like to stop drinking and has a h/o withdraw seizures and is having significant signs of withdraw. Patient is very shaky upon arrival to ER. States that his last drink was yesterday. States that he has been to rehab in the past and his parents have several places they are trying to get him into after this admission. Drinks about 1/5 Vodka daily and has been for a while. States that he is also having a cough and is worried that he has COVID. No known exposure. Discharge Summary-Simple/Stand Consultations Discharge Physical Examination Allergies: Coded Allergies: shellfish derived (Unverified Allergy, Mild, RASH, 07/25/12) STATES " ITCHY THROAT, AND FACES GETS RED" Vitals & I&Os Vital Sign - Last 12Hours Date Time Temp Pulse Resp B/P (MAP) Pulse Ox O2 Delivery O2 Flow Rate FiO2 08/02/19 08:00 97 Room Air 08/02/19 07:40 37.8 119 16 143/99 (114) Intake and Output 08/02/19 00:00 Intake Total 1200 ml Output Total 950 ml Balance 250 ml General Appearance: Alert, Oriented X3, Cooperative, No Acute Distress HEENT: Mucous Memb Moist/[place] Respiratory: Clear to Auscultation, Normal Air Movement Cardiovascular: Regular Rate, No Murmurs Abdominal: Normal Bowel Sounds, Soft, No Tenderness, No Hepatosplenomegaly, No Masses Extremities: No Edema, No Tenderness/Swelling Skin: No Rashes, No Breakdown Neuro: Strength at 5/5 X4 Ext, Sensation Intact, Cranial Nerves 3-12 NL Psych/Mental Status: Mental Status NL, Mood NL Hospital Course Was the Problem List Reviewed?: Yes See final discharge diagnosis. Discussion & Recommendations 33 yo M known alcoholic here for withdraw. Patient states that he wants to quit drinking. Patient has h/o withdraw seizure. Patient has been titrated down on ativan. He will be discharge home with mother and will start ATS outpatient prior to going to inpatient rehab. Discharge Condition at discharge stable Instructions to patient/family Please see electronic discharge instructions given to patient. Discharge Medications Reviewed and agree with Discharge Medication list on patient's Discharge Instruction sheet Clinical Quality Measures DVT/VTE Risk/Contraindication: Risk Factor Score Per Nursin RFS Level Per Nursing on Admit: 1=Low/No VTE PPX SANJUANITA DURAND MD Aug 02, 2019 11:07
[2019-08-02] MEDS ORDERED: FOLI1TAB24 PO (11:10)
[2019-08-02] MEDS ORDERED: LORA-404 PO (11:10)
[2019-08-02] MEDS ORDERED: LEVE500T6 PO (11:10)
--- NOTE | 2019-08-02 11:11 | Discharge Summary ---
Discharge [facility] Reconcile Patient Problems Problems Reviewed?: Yes Discharge Medications New, Converted or Re-Newed RX: Transmitted to Pharmacy New Medications: Folic Acid (Folic Acid) 1 Mg Tablet 1 MG PO DAILY, #30 TAB Lorazepam (Ativan) 0.5 Mg Tablet 0.5 MG PO TID PRN for ANXIETY, #5 TAB Levetiracetam (Levetiracetam) 500 Mg Tablet 1000 MG PO BID, #60 TAB Continued Medications: Ibuprofen (Ibuprofen) 200 Mg Tablet 600-800 MG PO Q8H PRN for PAIN-MILD (1-4), TAB Multivitamin (Gummi Bear Multivitamin) 1 Each Tab.chew 2 EACH PO DAILY, TAB Sertraline HCl (Sertraline HCl) 100 Mg Tablet 100 MG PO DAILY, TAB Discontinued Medications: Levetiracetam (Levetiracetam) 500 Mg Tablet 1000 MG PO BID, TAB TAKES 2 (500MG) TABLETS LAST FILLED 06-14-2019 #120 Patient Instructions Goal/Follow Up Appt: You have an appt tomorrow 08/03/19 with [facility] @ 2 PM Activity & Diet Discharge Diet: No Restrictions Activity as Tolerated: Yes SANJUANITA DURAND MD Aug 02, 2019 11:11
--- NOTE | 2019-08-02 11:12 | NUR ---
CM/SS finalized discharge. Plan: The patient will return to his mothers home at time of discharge. SHAVON/SS attempted to contact [facility] [place] [address] with voicemail and call back number left. CM/SS is attempting to get patient a set bed date with them for September. SHAVON/SS did not hear anything back from and in [place], [place]. CM/SS provided the patient with the number for [facility], [facility] (assessment line), and and 12 to follow up after he discharges. He reports that him and his mom will continue to search for [facility]. The patients physician reports he will be set up with out patient at [facility] until he is able to attend inpatient treatment. No further needs at this time.
--- NOTE | 2019-08-02 11:21 | NUR ---
LOWER DOSE OF ATAVAN GIVEN PER DR. DURAND
[2019-08-02 11:30] VITALS: BP 143/99
--- NOTE | 2019-08-02 15:29 | NUR ---
PT'S MEDS CALLED INTO [facility]
== END 2019-08-02 12:10 | disposition home or self-care (01) | DRG 897 ==
LOC: EDUNIT# 07:49 → ER 07:50 → 4TH 10:16
PROVIDERS: ADMIT Family Medicine; ATTEND Family Medicine
DX: F10.239 Alcohol dependence with withdrawal, unspecified (principal); R45.851 Suicidal ideations; G40.909 Epilepsy, unspecified, not intractable, without status epilepticus; F41.9 Anxiety disorder, unspecified; F31.9 Bipolar disorder, unspecified; F17.210 Nicotine dependence, cigarettes, uncomplicated; R50.9 Fever, unspecified; R05 Cough; R09.81 Nasal congestion; R11.10 Vomiting, unspecified; R19.7 Diarrhea, unspecified; R53.1 Weakness; M79.10 Myalgia, unspecified site; Z20.828 Contact with and (suspected) exposure to other viral communicable diseases; Z91.5 Personal history of self-harm
CPT/HCPCS: 36415; 71045; 80053; 80306; 80320; 80329; 81000; 83605; 83615; 84145; 85025; 85379; 85652; 86141; 87040; 87077; 87635; 93005; 93041; 96361; 96374

== ENCOUNTER 2019-09-16 21:54 | Emergency (ER) | payer SELFPAY ==
[~2019-09-16] VITALS: Ht 183 cm; Wt 100.0 kg
[~2019-09-16 21:54] MED LIST changes: +FOLI1TAB24 PO; +LORA-404 PO
--- NOTE | 2019-09-16 22:08 | ED Psychosocial ---
General Chief Complaint: Substance Abuse Stated Complaint: ETOH DETOX Source: patient Exam Limitations: no limitations (GUILLERMINA MEJIA APRN) History of Present Illness Date Seen by Provider: Sep 16, 2019 Time Seen by Provider: 22:05 Initial Comments To ER with reports of requesting alcohol detox. He drank about a fifth of vodka today. He was just here in July for the same thing and has a multitude of previous emergency room visits and hospital admissions for alcohol-related complaints. He is not suicidal. He states he has plans to go inpatient at an alcohol treatment facility in [place] in "a month or 2". Not sure which one. Timing/Duration: constant Severity: moderate (GUILLERMINA MEJIA APRN) Allergies and Home Medications Allergies Coded Allergies: shellfish derived (Unverified Allergy, Mild, RASH, 07/25/12) STATES " ITCHY THROAT, AND FACES GETS RED" Home Medications Folic Acid 1 Mg Tablet, 1 MG PO DAILY Prescribed by: SANJUANITA DURAND on 08/02/19 1110 Ibuprofen 200 Mg Tablet, 600-800 MG PO Q8H PRN for PAIN-MILD (1-4), (Reported) Levetiracetam 500 Mg Tablet, 1,000 MG PO BID Prescribed by: SANJUANITA DURAND on 08/02/19 1110 Lorazepam 0.5 Mg Tablet, 0.5 MG PO TID PRN for ANXIETY Prescribed by: SANJUANITA DURAND on 08/02/19 1110 Multivitamin 1 Each Tab.chew, 2 EACH PO DAILY, (Reported) Sertraline HCl 100 Mg Tablet, 100 MG PO DAILY, (Reported) Patient Home Medication List Home Medication List Reviewed: Yes (GUILLERMINA MEJIA APRN) Review of Systems Constitutional: see HPI EENTM: see HPI Respiratory: no symptoms reported Cardiovascular: no symptoms reported Genitourinary: no symptoms reported Musculoskeletal: no symptoms reported Skin: no symptoms reported Psychiatric/Neurological: No Symptoms Reported (GUILLERMINA MEJIA APRN) Past Gvnkmaw-Fufgjn-Ijpuov Hx Patient Social History Alcohol Use: Regular Use Number of Drinks Today: FF Alcohol Beverage of Choice: Beer, Vodka Recreational Drug Use: Yes Drug of Choice: THC NOW, LSD, AND "EVERYTHING YOU CAN THINK OF" IN THE PAST. DENIES IV USE Type Used: Cigarettes 2nd Hand Smoke Exposure: Yes Recent Foreign Travel: No Contact w/Someone Who Travel: No Recent Hopitalizations: No (GUILLERMINA MEJIA APRN) Immunizations Up To Date Tetanus Booster (TDap): Less than 5yrs PED Vaccines UTD: No (GUILLERMINA MEJIA APRN) Seasonal Allergies Seasonal Allergies: No (GUILLERMINA MEJIA APRN) Past Medical History Surgeries: Yes (FACIAL RECONSTRUCTION/JAW FRACTURE REPAIR) Respiratory: No Currently Using CPAP: No Currently Using BIPAP: No Cardiac: No Neurological: Yes (ALCOHOL-WITHDRAWL SEIZURES) Seizure Disorder Reproductive Disorders: No Sexually Transmitted Disease: No HIV/AIDS: No Genitourinary: No Gastrointestinal: No Musculoskeletal: Yes (JAW/FACIAL FRACTURE) Fractures Endocrine: No HEENT: Yes (JAW/FACIAL FRACTURE) Cancer: No Psychosocial: Yes Anxiety, Suicide Attempts, Bipolar, Depression Integumentary: No Blood Disorders: No Adverse Reaction/Blood Tranf: No (GUILLERMINA MEJIA APRN) Family Medical History FHx: suicide G8 SISTER No Pertinent Family Hx (GUILLERMINA MEJIA APRN) Physical Exam Vital Signs - First Documented 09/16/19 22:02 Temp 36.8 Pulse 82 Resp 18 B/P (MAP) 161/109 (126) Pulse Ox 95 (JETT CUMMINGS MD) Capillary Refill : (GUILLERMINA MEJIA APRN) Height, Weight, BMI Height: 6'0" Weight: 205lbs. 2.0oz. [id number]; 29.92 BMI Method:Stated General Appearance: WD/WN, no apparent distress Neck: non-tender, full range of motion Respiratory: normal breath sounds, no respiratory distress, no accessory muscle use Cardiovascular: regular rate, rhythm, no murmur Gastrointestinal: normal bowel sounds, non tender, soft Neurologic/Psychiatric: alert, normal mood/affect, oriented x 3 Appearance/Memory: appropriate appearance, appropriate insight, neat Behavior/Eye Contact: cooperative, avoids eye contact Thoughts/Hallucinations: normal thought pattern, no apparent hallucination Skin: normal color, warm/dry (GUILLERMINA MEJIA APRN) Procedures/Interventions Suture Size: 4-0 (GUILLERMINA MEJIA APRN) Progress/Results/Core Measures Results/Orders Lab Results Laboratory Tests Test 09/16/19 22:05 09/16/19 22:08 Range/Units White Blood Count 3.6 L 4.3-11.0 10^3/uL Red Blood Count 5.02 4.35-5.85 10^6/uL Hemoglobin 16.9 13.3-17.7 G/DL Hematocrit 47 40-54 % Mean Corpuscular Volume 94 80-99 FL Mean Corpuscular Hemoglobin 34 25-34 PG Mean Corpuscular Hemoglobin Concent 36 32-36 G/DL Red Cell Distribution Width 14.0 10.0-14.5 % Platelet Count 185 130-400 10^3/uL Mean Platelet Volume 9.9 7.4-10.4 FL Neutrophils (%) (Auto) 49 42-75 % Lymphocytes (%) (Auto) 31 12-44 % Monocytes (%) (Auto) 17 H 0-12 % Eosinophils (%) (Auto) 1 0-10 % Basophils (%) (Auto) 3 0-10 % Neutrophils # (Auto) 1.8 1.8-7.8 X 10^3 Lymphocytes # (Auto) 1.1 1.0-4.0 X 10^3 Monocytes # (Auto) 0.6 0.0-1.0 X 10^3 Eosinophils # (Auto) 0.0 0.0-0.3 10^3/uL Basophils # (Auto) 0.1 0.0-0.1 10^3/uL Prothrombin Time 12.4 12.2-14.7 SEC INR Comment 0.9 0.8-1.4 Sodium Level 141 135-145 MMOL/L Potassium Level 3.3 L 3.6-5.0 MMOL/L Chloride Level 102 98-107 MMOL/L Carbon Dioxide Level 19 L 21-32 MMOL/L Anion Gap 20 H 5-14 MMOL/L Blood Urea Nitrogen 8 7-18 MG/DL Creatinine 0.90 0.60-1.30 MG/DL Estimat Glomerular Filtration Rate > 60 BUN/Creatinine Ratio 9 Glucose Level 140 H 70-105 MG/DL Calcium Level 9.0 8.5-10.1 MG/DL Corrected Calcium 8.6 8.5-10.1 MG/DL Total Bilirubin 1.4 H 0.1-1.0 MG/DL Aspartate Amino Transf (AST/SGOT) 460 H 5-34 U/L Alanine Aminotransferase (ALT/SGPT) 205 H 0-55 U/L Alkaline Phosphatase 141 H 40-136 U/L Total Protein 7.5 6.4-8.2 GM/DL Albumin 4.5 3.2-4.5 GM/DL Serum Alcohol 420 *H <10 MG/DL Urine Color ORANGE Urine Clarity CLEAR Urine pH 6.5 5-9 Urine Specific [place] 1.025 H 1.016-1.022 Urine Protein 3+ H NEGATIVE Urine Glucose (UA) NEGATIVE NEGATIVE Urine Ketones NEGATIVE NEGATIVE Urine Nitrite NEGATIVE NEGATIVE Urine Bilirubin 1+ H NEGATIVE Urine Urobilinogen 4.0 < = 1.0 MG/DL Urine Leukocyte Esterase NEGATIVE NEGATIVE Urine RBC (Auto) 1+ H NEGATIVE Urine RBC NONE /HPF Urine WBC RARE /HPF Urine Squamous Epithelial Cells RARE /HPF Urine Crystals PRESENT H /LPF Urine Amorphous Sediment MOD DEANA URATES H /LPF Urine Bacteria TRACE /HPF Urine Casts NONE /LPF Urine Mucus MODERATE H /LPF Urine Culture Indicated NO Urine Opiates Screen NEGATIVE NEGATIVE Urine Oxycodone Screen NEGATIVE NEGATIVE Urine Methadone Screen NEGATIVE NEGATIVE Urine Propoxyphene Screen NEGATIVE NEGATIVE Urine Barbiturates Screen NEGATIVE NEGATIVE Ur Tricyclic Antidepressants Screen NEGATIVE NEGATIVE Urine Phencyclidine Screen NEGATIVE NEGATIVE Urine Amphetamines Screen NEGATIVE NEGATIVE Urine Methamphetamines Screen NEGATIVE NEGATIVE Urine Benzodiazepines Screen NEGATIVE NEGATIVE Urine Cocaine Screen NEGATIVE NEGATIVE Urine Cannabinoids Screen NEGATIVE NEGATIVE (JETT CUMMINGS MD) Medications Given in ED Current Medications Medications Dose Ordered Sig/Simran Route Start Time Stop Time Status Last Admin Dose Admin Potassium Chloride 40 meq ONCE ONCE PO 09/16/19 22:30 09/16/19 22:31 DC 09/16/19 22:43 40 MEQ (JETT CUMMINGS MD) Vital Signs/I&O 09/16/19 22:02 Temp 36.8 Pulse 82 Resp 18 B/P (MAP) 161/109 (126) Pulse Ox 95 (JETT CUMMINGS MD) Progress Progress Note : Time: 22:47 Progress Note Care of this patient was assumed from Guillermina Mejia. Patient is receiving a liter of IV fluid and potassium 40 mEq orally. Blood alcohol level is 420. Given the extremely high blood alcohol patient is not in a position to commit to rehabilitation at this time, nor is he withdrawing. He is already established with the substance abuse treatment program at [facility]. I've advised that he follow- up with them in the morning to ensure that a continuity plan of long-term substance abuse treatment is set up before he commits to an inpatient detox. A bed at a treatment facility needs to be secured before admission for detox. Liver markers were noted to be elevated but this is chronic when compared with his prior labs. (JETT CUMMINGS MD) Departure Impression Primary Impression: Alcohol intoxication in active alcoholic Qualified Codes: F10.220 - Alcohol dependence with intoxication, uncomplicated Additional Impressions: Hypokalemia Abnormal transaminases Disposition: HOME, SELF-CARE Condition: Improved Departure-Patient Inst. Referrals: [facility] (PCP/Family) Primary Care Physician Patient Instructions: ALCOHOL AND SUBSTANCE ABUSE, Alcohol Withdrawal Add. Discharge Instructions: Please follow-up with your primary care provider as soon as possible for a medical checkup. Call in the morning to schedule. Also call [facility] in the morning and speak with Pily or another insurance verification representative of the substance abuse treatment program. Discuss plans for rehabilitation and detox. A solid plan for treatment after the detox should be in place before a ttempting the inpatient detox. Avoid abruptly stopping alcohol consumption as this may cause serious life- threatening withdrawals. Return to emergency room if you develop symptoms of withdrawal such as agitation, hallucinations, accelerated blood pressure, etc. or other severe symptoms. All discharge instructions reviewed with patient and/or family. Voiced understanding. Scripts Lorazepam (Ativan) 0.5 Mg Tablet 1-2 MG PO Q4H PRN for AGITATION, #4 TAB For symptoms of alcohol withdrawal Prov: JETT CUMMINGS MD 09/16/19 Copy Copies To 1: JACKIE DOVE PETER J APRN Sep 16, 2019 22:07 JETT CUMMINGS MD Sep 16, 2019 22:52
[2019-09-16 22:15] LABS: BASOPHILS # (AUTO) 0.1 10^3/uL (0.0-0.1); BASOPHILS % (AUTO) 3 % (0-10); EOSINOPHILS % (AUTO) 1 % (0-10); HEMATOCRIT 47 % (40-54); HEMOGLOBIN 16.9 G/DL (13.3-17.7); LYMPHOCYTES # (AUTO) 1.1 X 10^3 (1.0-4.0); LYMPHOCYTES % (AUTO) 31 % (12-44); MEAN CORPUSCULAR HEMOGLOBIN 34 PG (25-34); MEAN CORPUSCULAR HGB CONC 36 G/DL (32-36); MEAN CORPUSCULAR VOLUME 94 FL (80-99); MEAN PLATELET VOLUME 9.9 FL (7.4-10.4); MONOCYTES # (AUTO) 0.6 X 10^3 (0.0-1.0); MONOCYTES % (AUTO) 17 % (0-12); NEUTROPHILS # (AUTO) 1.8 X 10^3 (1.8-7.8); NEUTROPHILS % (AUTO) 49 % (42-75); PLATELET COUNT 185 10^3/uL (130-400); WHITE BLOOD COUNT 3.6 10^3/uL (4.3-11.0)
[2019-09-16] MEDS ORDERED: NS IV 1000 ML 1,000 ML IV SCH (22:15)
[2019-09-16 22:16] LABS: CLARITY,URINE CLEAR; COLOR,URINE ORANGE; GLUCOSE, URINE (UA) NEGATIVE (NEGATIVE); KETONES,URINE NEGATIVE (NEGATIVE); LEUKOCYTE ESTERASE ,URINE NEGATIVE (NEGATIVE); NITRITE,URINE NEGATIVE (NEGATIVE); PH,URINE 6.5 (5-9); PROTEIN,URINE 3+ (NEGATIVE)
[2019-09-16 22:22] LABS: BILIRUBIN,URINE 1+ (NEGATIVE)
[2019-09-16 22:23] LABS: ALBUMIN 4.5 GM/DL (3.2-4.5); CHLORIDE 102 MMOL/L (98-107); INR 0.9 (0.8-1.4); POTASSIUM 3.3 MMOL/L (3.6-5.0); PROTHROMBIN TIME PATIENT 12.4 SEC (12.2-14.7); SODIUM 141 MMOL/L (135-145)
[2019-09-16 22:24] LABS: AMORPHOUS SEDIMENT,UR MOD AMOR URATES /LPF; BACTERIA,URINE TRACE /HPF; SQUAMOUS EPITHELIAL CELL,UR RARE /HPF; WBC,URINE RARE /HPF
[2019-09-16 22:26] LABS: AMPHETAMINE SCREEN, URINE NEGATIVE (NEGATIVE); BARBITURATE SCREEN URINE NEGATIVE (NEGATIVE); BENZODIAZEPINES SCREEN URINE NEGATIVE (NEGATIVE); CANNABINOID SCREEN, URINE NEGATIVE (NEGATIVE); COCAINE SCREEN URINE NEGATIVE (NEGATIVE); METHADONE STAT NEGATIVE (NEGATIVE); METHAMPHETAMINE SCREEN URINE S NEGATIVE (NEGATIVE); OPIATE SCREEN URINE NEGATIVE (NEGATIVE); OXYCODONE STAT NEGATIVE (NEGATIVE); PROPOXYPHENE STAT NEGATIVE (NEGATIVE); TRICYCLIC ANTIDEPRESSANTS SCRE NEGATIVE (NEGATIVE)
[2019-09-16 22:26] LABS: GLUCOSE 140 MG/DL (70-105); TOTAL PROTEIN 7.5 GM/DL (6.4-8.2)
[2019-09-16 22:27] LABS: CARBON DIOXIDE 19 MMOL/L (21-32)
[2019-09-16 22:28] LABS: BILIRUBIN,TOTAL 1.4 MG/DL (0.1-1.0)
[2019-09-16 22:29] LABS: ALKALINE PHOSPHATASE 141 U/L (40-136)
[2019-09-16 22:30] LABS: GFR ESTIMATED > 60
[2019-09-16] MEDS ORDERED: KCL 10 MEQ TAB (MICRO K) PO ONE (22:30)
[2019-09-16 22:31] LABS: BUN/CREATININE RATIO 9
[2019-09-16 22:32] LABS: ALANINE AMINOTRANSFERASE 205 U/L (0-55)
[2019-09-16] MEDS ORDERED: LORA-404 PO (22:58)
[2019-09-16 23:01] VITALS: BP 142/81
== END 2019-09-16 23:00 | disposition home or self-care (01) ==
LOC: EDUNIT# 21:54 → ER 21:55
DX: F10.229 Alcohol dependence with intoxication, unspecified (principal); E87.6 Hypokalemia; R74.0 Nonspecific elevation of levels of transaminase and lactic acid dehydrogenase [LDH]; G40.909 Epilepsy, unspecified, not intractable, without status epilepticus; F41.9 Anxiety disorder, unspecified; F32.9 Major depressive disorder, single episode, unspecified; Z77.22 Contact with and (suspected) exposure to environmental tobacco smoke (acute) (chronic)
CPT/HCPCS: 80053; 80306; 81000; 85025; 85610; 99284; G0480; 36415; 80320

== ENCOUNTER 2020-06-14 10:29 | Emergency (ER) | payer SELFPAY ==
[~2020-06-14] VITALS: Ht 182.8 cm; Wt 102.2 kg
[~2020-06-14 10:29] MED LIST changes: -FOLI1TAB24 PO; +FOLI1TAB33 PO; +SERT-414 PO; -SERT100T8 PO
[2020-06-14] MEDS ORDERED: NS IV 1000 ML 1,000 ML IV SCH (11:00)
[2020-06-14] MEDS ORDERED: ONDANSETRON 4 MG/2 ML (SDV) Z0FRAN IVP ONE (11:00)
[2020-06-14] MEDS ORDERED: LORazepam INJ 2 MG/ML (ATIVAN) VIAL IVP ONE (11:00)
--- NOTE | 2020-06-14 11:30 | ED Psychosocial ---
General Chief Complaint: Detox Stated Complaint: DETOX Nursing Triage Note: AMB TO ED WITH MALE FRIEND WHO WAS LEFT IN WAITNG ROOM WHILE PATIENT TALKED TO. PATIENT REPORTS WANTS DETOX DRNKS 2 PINTS OF VODKA DAILY USED METH YESTERDAY. WAS DETOXED AT [facility] 2 WEEKS BUT DID NOT FOLLOW UP WITH REHAB. Source: patient, other (Friend) Exam Limitations: no limitations History of Present Illness Date Seen by Provider: Jun 14, 2020 Time Seen by Provider: 10:35 Initial Comments Patient is a 34-year-old male who presents to the emergency department with a friend today with a chief complaint of desiring detox. Patient is a heavy drinker and has been so for the last many years. Patient states that he has had off-and-on periods of sobriety. He drinks at max 2 pints daily. His last drink was last night. Patient states that approximately 2 weeks ago he detoxed at [facility]. He states that after discharge he started drinking about 2 days later. Patient does have a history of seizure disorder is most likely related to alcohol withdrawal. His last seizure was 1 year ago. Patient states that he had that seizure about 20 days into his detox program. Patient takes daily Seroquel, Remeron gabapentin and Atarax as needed. Today he is complaining of a little epigastric discomfort, he feels a little mild nausea. He has the shakes. He denies any vomiting, coffee-ground or bloody emesis. He denies any black or bloody stools. No recent fevers, chills cough or congestion. The friend who presented with him today states that he was told by Pri[facility] that several days ago he took a bottle of Seroquel and attempted to hang himself but the belt broke. The patient is currently denying suicidal or homicidal ideations. He is not having any auditory or visual hallucinations. The patient desires admission for depression and suicidal thoughts however. All other review of systems reviewed and negative except as stated above. Timing/Duration: getting worse Severity: severe Associated Symptoms: anxiety, ingestion, suicidal ideation Allergies and Home Medications Allergies Coded Allergies: shellfish derived (Unverified Allergy, Mild, RASH, 07/25/12) STATES " ITCHY THROAT, AND FACES GETS RED" Home Medications Folic Acid 1 Mg Tablet, 1 MG PO DAILY Prescribed by: SANJUANITA DURAND on 08/02/19 1110 Ibuprofen 200 Mg Tablet, 600-800 MG PO Q8H PRN for PAIN-MILD (1-4), (Reported) Levetiracetam 500 Mg Tablet, 1,000 MG PO BID Prescribed by: SANJUANITA DURAND on 08/02/19 111 Lorazepam 0.5 Mg Tablet, 0.5 MG PO TID PRN for ANXIETY Prescribed by: SANJUANITA DURAND on 08/02/19 111 Lorazepam 0.5 Mg Tablet, 1-2 MG PO Q4H PRN for AGITATION For symptoms of alcohol withdrawal Prescribed by: JETT DYKES on 09/16/19 2258 Multivitamin 1 Each Tab.chew, 2 EACH PO DAILY, (Reported) Sertraline HCl 100 Mg Tablet, 100 MG PO DAILY, (Reported) Patient Home Medication List Home Medication List Reviewed: Yes Review of Systems Constitutional: see HPI EENTM: no symptoms reported Respiratory: no symptoms reported Cardiovascular: no symptoms reported Gastrointestinal: abdominal pain, nausea Genitourinary: no symptoms reported Musculoskeletal: no symptoms reported Skin: no symptoms reported Psychiatric/Neurological: Anxiety, Emotional Problems, Tremors Past Aikajeo-Epabbk-Amwscp Hx Patient Social History Alcohol Use: Regular Use Number of Drinks Today: FF Alcohol Beverage of Choice: Beer, Vodka Drug of Choice: THC NOW, LSD, AND "EVERYTHING YOU CAN THINK OF" IN THE PAST. DENIES IV USE Type Used: Cigarettes 2nd Hand Smoke Exposure: Yes Recent Infectious Disease Expo: No Recent Hopitalizations: No Immunizations Up To Date Tetanus Booster (TDap): Less than 5yrs PED Vaccines UTD: No Seasonal Allergies Seasonal Allergies: No Past Medical History Surgeries: Yes (FACIAL RECONSTRUCTION/JAW FRACTURE REPAIR) Respiratory: No Currently Using CPAP: No Currently Using BIPAP: No Cardiac: No Neurological: Yes (ALCOHOL-WITHDRAWL SEIZURES) Seizure Disorder Reproductive Disorders: No Sexually Transmitted Disease: No HIV/AIDS: No Genitourinary: No Gastrointestinal: No Musculoskeletal: Yes (JAW/FACIAL FRACTURE) Fractures Endocrine: No HEENT: Yes (JAW/FACIAL FRACTURE) Cancer: No Psychosocial: Yes Anxiety, Suicide Attempts, Bipolar, Depression Integumentary: No Blood Disorders: No Adverse Reaction/Blood Tranf: No Family Medical History FHx: suicide G8 SISTER No Pertinent Family Hx Physical Exam Vital Signs - First Documented 06/14/20 10:33 Temp 35.7 Pulse 135 Resp 18 B/P (MAP) 163/112 (129) Pulse Ox 96 Capillary Refill : Less Than 3 Seconds Height, Weight, BMI Height: 6'0" Weight: 205lbs. 2.0oz. [id number]; 30.00 BMI Method:Stated General Appearance: WD/WN, mild distress HEENT: PERRL/EOMI Neck: supple Respiratory: lungs clear, normal breath sounds, no respiratory distress, no accessory muscle use Cardiovascular: regular rate, rhythm Gastrointestinal: soft, tenderness (Mild epigastric tenderness to palpation) Extremities: non-tender, normal inspection, no pedal edema, no calf tenderness Neurologic/Psychiatric: alert, normal mood/affect, oriented x 3 Appearance/Memory: appropriate appearance, appropriate insight, no memory impairment Behavior/Eye Contact: cooperative, good eye contact, normal speech Thoughts/Hallucinations: normal thought pattern, no apparent hallucination Skin: normal color, warm/dry Procedures/Interventions Suture Size: 4-0 Progress/Results/Core Measures Results/Orders Lab Results Laboratory Tests Test 06/14/20 11:23 06/14/20 13:15 Range/Units White Blood Count 8.2 4.3-11.0 10^3/uL Red Blood Count 5.01 4.30-5.52 10^6/uL Hemoglobin 15.9 13.3-17.7 g/dL Hematocrit 46 40-54 % Mean Corpuscular Volume 92 80-99 fL Mean Corpuscular Hemoglobin 32 25-34 pg Mean Corpuscular Hemoglobin Concent 35 32-36 g/dL Red Cell Distribution Width 13.2 10.0-14.5 % Platelet Count 426 H 130-400 10^3/uL Mean Platelet Volume 9.8 9.0-12.2 fL Immature Granulocyte % (Auto) 0 % Neutrophils (%) (Auto) 75 42-75 % Lymphocytes (%) (Auto) 16 12-44 % Monocytes (%) (Auto) 8 0-12 % Eosinophils (%) (Auto) 0 0-10 % Basophils (%) (Auto) 1 0-10 % Neutrophils # (Auto) 6.2 1.8-7.8 10^3/uL Lymphocytes # (Auto) 1.3 1.0-4.0 10^3/uL Monocytes # (Auto) 0.6 0.0-1.0 10^3/uL Eosinophils # (Auto) 0.0 0.0-0.3 10^3/uL Basophils # (Auto) 0.1 0.0-0.1 10^3/uL Immature Granulocyte # (Auto) 0.0 0.0-0.1 10^3/uL Sodium Level 136 135-145 MMOL/L Potassium Level 3.9 3.6-5.0 MMOL/L Chloride Level 100 98-107 MMOL/L Carbon Dioxide Level 19 L 21-32 MMOL/L Anion Gap 17 H 5-14 MMOL/L Blood Urea Nitrogen 10 7-18 MG/DL Creatinine 0.95 0.60-1.30 MG/DL Estimat Glomerular Filtration Rate > 60 BUN/Creatinine Ratio 11 Glucose Level 95 70-105 MG/DL Calcium Level 9.2 8.5-10.1 MG/DL Corrected Calcium 8.8 8.5-10.1 MG/DL Total Bilirubin 0.9 0.1-1.0 MG/DL Aspartate Amino Transf (AST/SGOT) 64 H 5-34 U/L Alanine Aminotransferase (ALT/SGPT) 111 H 0-55 U/L Alkaline Phosphatase 83 40-136 U/L Total Protein 7.4 6.4-8.2 GM/DL Albumin 4.5 3.2-4.5 GM/DL Salicylates Level < 5.0 L 5.0-20.0 MG/DL Acetaminophen Level < 10 L 10-30 UG/ML Serum Alcohol < 10 <10 MG/DL Coronavirus 2019 (NEYDA) Not Detected Not Detecte Urine Opiates Screen NEGATIVE NEGATIVE Urine Oxycodone Screen NEGATIVE NEGATIVE Urine Methadone Screen NEGATIVE NEGATIVE Urine Propoxyphene Screen NEGATIVE NEGATIVE Urine Barbiturates Screen POSITIVE H NEGATIVE Ur Tricyclic Antidepressants Screen POSITIVE H NEGATIVE Urine Phencyclidine Screen NEGATIVE NEGATIVE Urine Amphetamines Screen POSITIVE H NEGATIVE Urine Methamphetamines Screen POSITIVE H NEGATIVE Urine Benzodiazepines Screen POSITIVE H NEGATIVE Urine Cocaine Screen NEGATIVE NEGATIVE Urine Cannabinoids Screen POSITIVE H NEGATIVE My Orders Orders - ALEJANDRA MAYA MD Comprehensive Metabolic Panel (06/14/20 10:54) Alcohol (06/14/20 10:54) Cbc With Automated Diff (06/14/20 10:54) Ns Iv 1000 Ml (Sodium Chloride 0.9%) (06/14/20 11:00) Ondansetron Injection (Zofran Injectio (06/14/20 11:00) Lorazepam Injection (Ativan Injection) (06/14/20 11:00) Salicylate (06/14/20 11:15) Acetaminophen (06/14/20 11:15) Drug Screen Stat (Urine) (06/14/20 11:15) Ekg Tracing (06/14/20 11:15) Covid 19 Inhouse Test (06/14/20 11:15) General/Regular (06/14/20 Lunch) Clorazepate Tablet (Tranxene Tablet) (06/14/20 16:15) Medications Given in ED Current Medications Medications Dose Ordered Sig/Simran Route Start Time Stop Time Status Last Admin Dose Admin Lorazepam 2 mg ONCE ONCE IVP 06/14/20 11:00 06/14/20 11:01 DC 06/14/20 11:17 2 MG Ondansetron HCl 4 mg ONCE ONCE IVP 06/14/20 11:00 06/14/20 11:01 DC 06/14/20 11:20 4 MG Vital Signs/I&O 06/14/20 06/14/20 10:33 13:04 Temp 35.7 Pulse 135 101 Resp 18 18 B/P (MAP) 163/112 (129) 155/107 (123) Pulse Ox 96 95 Blood Pressure Mean: 129 Progress Progress Note : Time: 16:09 Progress Note Patient seen and examined by me 34-year-old alcoholic with a chief complaint of depression, suicide attempt 3 days ago, having some abdominal pain and nausea and panic today. Evaluation today includes psychiatric clearance work-up. He was evaluated by [facility] and signed a safety plan for his safety. Patient is currently clean from alcohol but is positive for multiple other substances on his drug screen. Benzodiazepines were given here for his agitation and anxiety. Patient has plans to contact addiction treatment center on Tuesday for inpatient versus outpatient treatment of his alcoholism. He has a safe place to go. He plans on staying with a friend, "Luke". He has no clinical or objective findings to warrant further studies from the emergency department nor does he meet admission criteria at this time. Patient is strongly encouraged to continue taking his daily prescribed medications which include his Keppra for seizures. He verbalized understanding. All questions were sought and answered. Patient is stable for discharge. Patient is given a dose of Tranxene prior to discharge for alcohol withdrawal symptoms Initial ECG Impression Date: Jun 14, 2020 Initial ECG Impression Time: 12:03 Initial ECG Rate: 109 Initial ECG Rhythm: S.Tach Initial ECG Intervals: Normal Initial ECG Impression: Nonspecific Changes Departure Impression Primary Impression: Anxiety Additional Impressions: Alcoholism Seizure disorder Disposition: HOME, SELF-CARE Condition: Stable Departure-Patient Inst. Decision time for Depature: 16:11 Referrals: [facility] [place] (PCP/Family) Primary Care Physician Patient Instructions: Alcohol Abuse and Alcoholism (DC) Add. Discharge Instructions: Drink plenty of fluids/water to stay well-hydrated. Continue to take your daily medications as prescribed, especially your Keppra. Please follow-up with the addiction treatment center in [facility] on Tuesday, June 16. Come back to the emergency department for any worsening symptoms, seizures, pain, vomiting or other emergent concerns. ALEJANDRA MAYA MD Jun 14, 2020 11:29
[2020-06-14 11:31] LABS: BASOPHILS # (AUTO) 0.1 10^3/uL (0.0-0.1); BASOPHILS % (AUTO) 1 % (0-10); EOSINOPHILS % (AUTO) 0 % (0-10); HEMATOCRIT 46 % (40-54); HEMOGLOBIN 15.9 g/dL (13.3-17.7); LYMPHOCYTES # (AUTO) 1.3 10^3/uL (1.0-4.0); LYMPHOCYTES % (AUTO) 16 % (12-44); MEAN CORPUSCULAR HEMOGLOBIN 32 pg (25-34); MEAN CORPUSCULAR HGB CONC 35 g/dL (32-36); MEAN CORPUSCULAR VOLUME 92 fL (80-99); MEAN PLATELET VOLUME 9.8 fL (9.0-12.2); MONOCYTES # (AUTO) 0.6 10^3/uL (0.0-1.0); MONOCYTES % (AUTO) 8 % (0-12); NEUTROPHILS # (AUTO) 6.2 10^3/uL (1.8-7.8); NEUTROPHILS % (AUTO) 75 % (42-75); PLATELET COUNT 426 10^3/uL (130-400); WHITE BLOOD COUNT 8.2 10^3/uL (4.3-11.0)
[2020-06-14 11:51] LABS: ALANINE AMINOTRANSFERASE 111 U/L (0-55); ALBUMIN 4.5 GM/DL (3.2-4.5); ALKALINE PHOSPHATASE 83 U/L (40-136); BILIRUBIN,TOTAL 0.9 MG/DL (0.1-1.0); BUN/CREATININE RATIO 11; CALCIUM 9.2 MG/DL (8.5-10.1); CARBON DIOXIDE 19 MMOL/L (21-32); CHLORIDE 100 MMOL/L (98-107); CREATININE SERUM 0.95 MG/DL (0.60-1.30); GFR ESTIMATED > 60; GLUCOSE 95 MG/DL (70-105); POTASSIUM 3.9 MMOL/L (3.6-5.0); SALICYLATE < 5.0 MG/DL (5.0-20.0); SODIUM 136 MMOL/L (135-145); TOTAL PROTEIN 7.4 GM/DL (6.4-8.2)
[2020-06-14 11:56] LABS: ACETAMINOPHEN < 10 UG/ML (10-30)
[2020-06-14 13:51] LABS: BENZODIAZEPINES SCREEN URINE POSITIVE (NEGATIVE)
[2020-06-14 13:52] LABS: AMPHETAMINE SCREEN, URINE POSITIVE (NEGATIVE); BARBITURATE SCREEN URINE POSITIVE (NEGATIVE); CANNABINOID SCREEN, URINE POSITIVE (NEGATIVE); COCAINE SCREEN URINE NEGATIVE (NEGATIVE); METHAMPHETAMINE SCREEN URINE S POSITIVE (NEGATIVE); TRICYCLIC ANTIDEPRESSANTS SCRE POSITIVE (NEGATIVE)
[2020-06-14 13:53] LABS: METHADONE STAT NEGATIVE (NEGATIVE); OPIATE SCREEN URINE NEGATIVE (NEGATIVE); OXYCODONE STAT NEGATIVE (NEGATIVE); PROPOXYPHENE STAT NEGATIVE (NEGATIVE)
[2020-06-14] MEDS ORDERED: CLORAZEPATE 7.5 MG (TRANXENE) TAB PO ONE (16:15)
[2020-06-14 16:32] VITALS: BP 143/100
== END 2020-06-14 16:42 | disposition home or self-care (01) ==
LOC: EDUNIT# 10:29 → ER 10:31
DX: F41.9 Anxiety disorder, unspecified (principal); F10.20 Alcohol dependence, uncomplicated; G40.909 Epilepsy, unspecified, not intractable, without status epilepticus; F32.9 Major depressive disorder, single episode, unspecified; Z77.22 Contact with and (suspected) exposure to environmental tobacco smoke (acute) (chronic); Z20.822 Contact with and (suspected) exposure to COVID-19
CPT/HCPCS: 80053; 80306; 85025; 93005; 99284; G0480 ×3; U0002; 36415; 80320; 80329; 87635